=== PATIENT | female | born 1930 | race Caucasian/White ===

== ENCOUNTER 2016-09-30 12:34 | Emergency (ER) | payer OTHER ==
--- NOTE | 2016-09-30 13:35 | PROVIDER DOCUMENTATION ---
HPI-General Adult - General Source: patient - History of Present Illness -Gen Adult Nature of Presenting Problems: 85 y/o F presents to ED cc of pain all over. Pt states about 2 days ago she started having these aching pains. Pt does report some N/V and some chills. Denies fever. Pt is alert. Has some weakness. Location of Pain/Injury: reports: generalized Pain Radiation: reports: no radiation Quality of Pain: reports: aching Onset/Duration: reports: 2 days ago Timing: reports: still present Context/Activities at Onset: reports: light activity Modifying Factors: improves with: nothing Associated Symptoms: reports: nausea, vomiting, weakness. denies: chest pain, fever/chills (reports chills/ no fever), shortness of breath Similar Symptoms Previously?: No Recently seen or treated by another doctor?: No <Sherron Castillo - Last Filed: 09/30/16 17:34> <Ranjan Weaver - Last Filed: 09/30/16 17:41> - General Chief Complaint: Weakness Stated Complaint: SOB, N/V Time Seen by Provider: 09/30/16 13:18 Allergies/Adverse Reactions: Patient Allergies Allergy/AdvReac Type Severity Reaction Status Date / Time rosuvastatin calcium * AdvReac SWELLING Verified 06/11/13 13:28 [From [place]] Home Medications: Home Medication List Medication Instructions Recorded Confirmed Last Taken Type Insulin Glargine [Lantus] 35 unit SUBQ QHS 05/22/13 09/30/16 09/30/16 History Levothyroxine [Synthroid] 50 microgm PO DAILY 05/22/13 09/30/16 09/30/16 History Potassium Chloride 20 meq PO BID 05/22/13 09/30/16 09/30/16 History Warfarin Sodium [Coumadin] 6 mg PO DIRECTED 05/22/13 09/30/16 09/30/16 History ATORVAstatin [Lipitor] 40 mg PO QHS 06/11/13 09/30/16 09/30/16 History Furosemide [Lasix] 40 mg PO DAILY 06/11/13 09/30/16 09/30/16 History Hydrocodone Bit/Acetaminophen 1 each PO PRN PRN 11/10/13 09/30/16 09/30/16 History [Hydrocodon-Acetaminoph 7.5-500] Carvedilol [Coreg] 6.25 mg PO DAILY #0 11/15/13 09/30/16 09/30/16 Rx Diltiazem HCl [Cartia Xt] 1 cap PO DAILY 09/30/16 09/30/16 09/30/16 History Furosemide [Lasix] 40 mg PO DAILY #30 tablet 09/30/16 Unknown Rx Methocarbamol [Robaxin] 500 - 1,000 mg PO BID PRN #100 09/30/16 Unknown Rx tablet Nitrofurantoin Monohyd/M-Cryst 100 mg PO BID #10 capsule 09/30/16 Unknown Rx [Macrobid 100 mg Capsule] Pioglitazone [Actos] 1 tab PO DAILY 09/30/16 09/30/16 09/30/16 History Review of Systems - Adult - REVIEW OF SYSTEMS - ADULT Constitutional: reports: chills. denies: fever Ears, Nose, Mouth & Throat: denies: ear pain, throat pain Cardiovascular: denies: chest pain, palpitations Respiratory: denies: cough, shortness of breath Gastrointestinal: reports: nausea, vomiting. denies: abdominal pain, diarrhea Genitourinary: denies: discharge, frequency Musculoskeletal: denies: bone pain, back pain Neurological: reports: other (weakness). denies: dizziness/vertigo, headache/ migraines, slurred speech <Sherron Castillo - Last Filed: 09/30/16 17:34> Past History - Adult - PAST MEDICAL HISTORY-ADULT Review of Records: reports: Old Records Reviewed, Nursing Assessment Review Cardiovascular: reports: A-Fib, HTN, hyperlipidemia Psychiatric: reports: depression Endocrine/Immune: reports: Diabetes, thyroid disorder - PRIOR SURGERIES/PROCEDURES Surgical/Procedure History: reports: cholecystectomy, hysterectomy, other ( catarct surgrey ) - IMMUNIZATION STATUS Childhood Immunizations: See Nurse Assessment Flu Vaccine: See Nurse Assessment - SOCIAL HISTORY Smoking: quit greater than 1 year Substance Use: denies <Sherron Castillo - Last Filed: 09/30/16 17:34> Physical Exam-General - PHYSICAL EXAM-ADULT Initial Vital Signs Reviewed: Yes - CONSTITUTIONAL General Appearance: appears well, alert, no apparent distress - EYES Eyes: pink conjunctivae - HEAD, EARS, NOSE, MOUTH & THROAT HENMT: moist mucous membranes - NECK Neck: full range of motion, normal inspection, other (tenderness with movement "hurts when i do move it and hurts when i dont move it") - RESPIRATORY Respiratory: chest non-tender, lungs clear, normal breath sounds - CARDIOVASCULAR Cardiovascular: normal peripheral pulses, regular rate, rhythm, no edema - GASTROINTESTINAL (ABDOMEN) Abdominal Exam: normal bowel sounds, non tender, soft - MUSCULOSKELETAL Back Exam: normal inspection, no CVA tenderness, no vertebral tenderness Extremity: normal range of motion, non-tender, normal gait - SKIN Integumentary: normal color, normal turgor, warm/dry - NEUROLOGIC Neurologic: grossly normal, no motor/sensory deficits - PSYCHIATRIC Psych/Mental Status: oriented x 3 <Sherron Castillo - Last Filed: 09/30/16 17:34> Progress - PLAN OF CARE/RESULTS Progress/Plan/Lab Results: plan:LABS, XRAY, MONITOR PT. PT WILL BE GIVEN LASIX Laboratory Tests 09/30/16 09/30/16 09/30/16 13:30 13:30 13:30 WBC 9.82 RBC 3.97 L Hgb 11.4 L Hct 36.7 L MCV 92.4 MCH 28.7 MCHC 31.1 L RDW Std Deviation 16.4 H Plt Count 129 L MPV 12.6 H Immature Gran % (Auto) 0.2 Neut % (Auto) 89.6 H Lymph % (Auto) 5.7 L [place] % (Auto) 3.7 Eos % (Auto) 0.7 Baso % (Auto) 0.1 Immature Gran # (Auto) 0.02 Neut # (Auto) 8.80 H Lymph # (Auto) 0.56 L [place] # (Auto) 0.36 Eos # (Auto) 0.07 Baso # (Auto) 0.01 Segmented Neutrophils Not Reportable ESR 15 PT INR Sodium Potassium Chloride Carbon Dioxide Anion Gap BUN Creatinine Estimated GFR/1.73 m2 BUN/Creatinine Ratio Glucose Calculated Osmolality Calcium Total Bilirubin AST ALT Alkaline Phosphatase Creatine Kinase Bdn-N-Jlzlxembfmu Pept Total Protein Albumin Globulin Albumin/Globulin Ratio TSH 1.92 Thyroxine (T4) Urine Source Urine Color Urine Turbidity Urine pH Ur Specific [place] Urine Protein Ur Glucose (Stick) Ur Ketones (Stick) Urine Blood Urine Nitrite Urine Bilirubin Urobilinogen Dipstick Urine Leukocytes Urine WBC (Auto) Urine RBC (Auto) U Epithel Cells (Auto) Urine Bacteria (Auto) 03/09/30/16 09/30/16 13:30 13:30 13:30 WBC RBC Hgb Hct MCV MCH MCHC RDW Std Deviation Plt Count MPV Immature Gran % (Auto) Neut % (Auto) Lymph % (Auto) [place] % (Auto) Eos % (Auto) Baso % (Auto) Immature Gran # (Auto) Neut # (Auto) Lymph # (Auto) [place] # (Auto) Eos # (Auto) Baso # (Auto) Segmented Neutrophils ESR PT INR Sodium 136 Potassium 4.4 Chloride 97 L Carbon Dioxide 26 Anion Gap 13 BUN 34 H Creatinine 1.3 H Estimated GFR/1.73 m2 39 BUN/Creatinine Ratio 26 Glucose 164 H Calculated Osmolality 283 Calcium 8.6 L Total Bilirubin 1.38 H AST 29 ALT 29 Alkaline Phosphatase 53 Creatine Kinase 45 Wbt-K-Vlbhqphwfrb Pept 4694 H Total Protein 5.7 L Albumin 3.5 Globulin 2.2 Albumin/Globulin Ratio 1.6 TSH Thyroxine (T4) 6.66 Urine Source Urine Color Urine Turbidity Urine pH Ur Specific [place] Urine Protein Ur Glucose (Stick) Ur Ketones (Stick) Urine Blood Urine Nitrite Urine Bilirubin Urobilinogen Dipstick Urine Leukocytes Urine WBC (Auto) Urine RBC (Auto) U Epithel Cells (Auto) Urine Bacteria (Auto) 09/30/16 09/30/16 13:30 13:55 WBC RBC Hgb Hct MCV MCH MCHC RDW Std Deviation Plt Count MPV Immature Gran % (Auto) Neut % (Auto) Lymph % (Auto) [place] % (Auto) Eos % (Auto) Baso % (Auto) Immature Gran # (Auto) Neut # (Auto) Lymph # (Auto) [place] # (Auto) Eos # (Auto) Baso # (Auto) Segmented Neutrophils ESR PT 23.4 H INR 2.33 Sodium Potassium Chloride Carbon Dioxide Anion Gap BUN Creatinine Estimated GFR/1.73 m2 BUN/Creatinine Ratio Glucose Calculated Osmolality Calcium Total Bilirubin AST ALT Alkaline Phosphatase Creatine Kinase Jlf-D-Ldswzmecljf Pept Total Protein Albumin Globulin Albumin/Globulin Ratio TSH Thyroxine (T4) Urine Source CLEAN CATCH Urine Color YELLOW Urine Turbidity HAZY Urine pH 5.5 Ur Specific [place] 1.019 Urine Protein TRACE A Ur Glucose (Stick) NEGATIVE Ur Ketones (Stick) NEGATIVE Urine Blood NEGATIVE Urine Nitrite NEGATIVE Urine Bilirubin NEGATIVE Urobilinogen Dipstick 2 A Urine Leukocytes MODERATE A Urine WBC (Auto) 10-20 A Urine RBC (Auto) <10 U Epithel Cells (Auto) <10 Urine Bacteria (Auto) 3+ Orders Category Date Time Status [place] Cath Insertion ORDERED Care 09/30/16 15:18 Active Misc. NRSG Communication Order DIRECTED Care 09/30/16 15:25 Active Diabetic Diet Diet 09/30/16 14:48 Active BNP [PRO B-NATRIURETIC PEPTIDE] Stat Lab 09/30/16 13:30 Completed CBC WITH ELECTRONIC DIFF [HEME] Stat Lab 09/30/16 13:30 Completed CK PROFILE [SP CHEM] Stat Lab 09/30/16 13:30 Completed CMP [COMPREHENSIVE METABOLIC PANEL] [CHEM] Stat Lab 09/30/16 13:30 Completed INFLUENZA SCREEN A/B Stat Lab 09/30/16 13:15 Completed PROTIME WITH INR [COAG] Stat Lab 09/30/16 13:30 Completed SED RATE [HEME] Stat Lab 09/30/16 13:30 Completed T4 Stat Lab 09/30/16 13:30 Completed TSH Stat Lab 09/30/16 13:30 Completed UA NIMS W/REFLEX CULT [URINALYSIS] Stat Lab 09/30/16 13:55 Completed URINE CULTURE [RM] Routine Lab 09/30/16 14:38 Received Furosemide [Lasix] Med 09/30/16 15:17 Discontinued 60 mg IV NOW ONE Vital Signs - 24 hr 09/30/16 09/30/16 09/30/16 12:54 13:50 17:12 Temperature 98.6 F Pulse Rate 62 65 82 Respiratory 18 27 H 28 H Rate Blood Pressure 112/55 115/55 122/63 O2 Sat by Pulse 92 L 90 L 92 L Oximetry - REASSESSMENT Reassessment #1 Time Reassessed: 15:23 Status: unchanged (Dr. Weaver spoke with pt again and pt also complaining of her ankles swelling (no pedal edema noticed on exam). When asked if taking Lasix pill pt states she does not take it everyday and does not know the last time it was taken.) Reassessment #2 Time Reassessed: 15:55 Status: worsening (PT REPORTS PAIN IN HER NECK IS WORSE AND IS WANTING PAIN MEDICATION) Reassessment #3 Time Reassessed: 16:35 Status: unchanged (pt states she is still having pain all over and it is no getting any better. pt is sitting in bed eating dinner .) <Sherron Castillo - Last Filed: 09/30/16 17:34> Departure <Sherron Castillo - Last Filed: 09/30/16 17:34> - Departure Time of Disposition Order: 17:35 Certified Medical Emergency: Emergent <Ranjan Weaver - Last Filed: 09/30/16 17:41> - Departure DIAGNOSIS: Myalgia CHF (congestive heart failure) Qualifiers: Congestive heart failure type: combined Congestive heart failure chronicity: chronic Qualified Code(s): I50.42 - Chronic combined systolic (congestive) and diastolic (congestive) heart failure UTI (urinary tract infection) Qualifiers: Hematuria presence: without hematuria Disposition: HOME 01 Condition: Stable Additional Instructions: fu with your family doctor in 1-2 weeks ED Follow Up Instructions: You have been treated by a care provider in the Emergency Department. These instructions are being provided to you so you can have an understanding of how to care for yourself upon discharge. Upon discharge from the Emergency Department, you are responsible for making arrangements for follow-up care by a physician of your choice. Take all prescribed medications as directed. Return to the Emergency Department immediately for any new or worsening symptoms. You may call the Physician Referral phone number at [phone] to obtain a list of Physicians who are taking new patients. Prescriptions: Furosemide [Lasix] 40 mg PO DAILY #30 tablet Nitrofurantoin Monohyd/M-Cryst [Macrobid 100 mg Capsule] 100 mg PO BID #10 capsule Methocarbamol [Robaxin] 500 - 1,000 mg PO BID PRN #100 tablet PRN Reason: Pain Referrals: None,PCP [Primary Care Provider] - Attestation - Scribe Verification/Attestation Scribe:: Sherron Castillo Acting as Scribe for:: Ranjan Weaver Scribe documention review:: This chart was documented by a scribe and accurately reflects the service the provider performed and the decisions made by the provider. <Sherron Castillo - Last Filed: 09/30/16 17:34> Physician Attestation
[2016-09-30 14:00] LABS: BASO% 0.1 % (0.0-0.8); EOS# 0.07 X1000 (0.0-0.7); EOS% 0.7 % (0.0-10.0); HEMATOCRIT 36.7 % (37.0-47.0); HEMOGLOBIN 11.4 g/dL (12.0-16.0); IMM GRAN# 0.02 X1000 (0.0-0.04); IMM GRAN% 0.2 % (0.0-0.5); LYMPH# 0.56 X1000 (1.2-3.4); LYMPH% 5.7 % (20.5-51.1); MCH 28.7 PG (27-31); MCHC 31.1 g/dL (33-37); MCV 92.4 FL (81-99); MONO# 0.36 X1000 (0.11-0.59); MONO% 3.7 % (1.7-9.3); MPV 12.6 FL (7.4-10.4); NEUT% 89.6 % (42.2-75.2); PLT 129 X1000 (130-400); RBC 3.97 XMIL (4.2-5.4)
[2016-09-30 14:09] LABS: URINE MICRO REVIEW NEEDED? NO; URINE SOURCE CLEAN CATCH
[2016-09-30 14:12] LABS: BILIRUBIN URINE NEGATIVE (NEGATIVE); BLOOD URINE NEGATIVE (NEGATIVE); COLOR YELLOW; GLUCOSE URINE NEGATIVE (NEGATIVE); LEUKOCYTES URINE MODERATE (NEGATIVE); NITRITE URINE NEGATIVE (NEGATIVE); PH URINE 5.5; PROTEIN URINE TRACE mg/dL (NEGATIVE); SP GRAVITY URINE 1.019; TURBIDITY URINE HAZY (CLEAR); UROBILINOGEN URINE 2 mg/dL (NORMAL)
[2016-09-30 14:14] LABS: UR EPITHELIAL CELLS <10 /HPF (<10); URINE BACTERIA 3+ /HPF; URINE CULTURE NEEDED? YES; URINE RBC <10 /HPF (<10)
[2016-09-30 14:23] LABS: ALBUMIN 3.5 g/dL (3.5-5.0); CALCIUM 8.6 mg/dL (8.8-10.2); POTASSIUM 4.4 mmol/L (3.5-5.1); TOTAL BILIRUBIN 1.38 mg/dL (0.20-1.00); TOTAL PROTEIN 5.7 g/dL (6.3-8.3)
[2016-09-30 14:25] LABS: MANUAL DIFF NEEDED? NO
[2016-09-30 14:29] LABS: INR 2.33; PROTIME 23.4 Seconds (9.2-11.7)
[2016-09-30] MEDS ORDERED: LASIX IV ONE (15:17)
[2016-09-30] MEDS ORDERED: ROBAXIN PO ONE (18:00)
[2016-09-30 18:32] VITALS: BP 138/80
== END 2016-09-30 18:43 | disposition home or self-care (01) ==
LOC: EDBD → ED 12:34
DX: I50.42 Chronic combined systolic (congestive) and diastolic (congestive) heart failure (principal); N39.0 Urinary tract infection, site not specified; M79.1 Myalgia; R11.2 Nausea with vomiting, unspecified; R68.83 Chills (without fever); R53.1 Weakness; R06.02 Shortness of breath; I48.91 Unspecified atrial fibrillation; Z79.899 Other long term (current) drug therapy; I10 Essential (primary) hypertension; E78.5 Hyperlipidemia, unspecified; E11.9 Type 2 diabetes mellitus without complications; E07.9 Disorder of thyroid, unspecified; Z79.01 Long term (current) use of anticoagulants; Z79.4 Long term (current) use of insulin; Z87.891 Personal history of nicotine dependence
CPT/HCPCS: 80053; 81001; 82550; 82948; 83880; 84436; 84443; 85025; 85610; 85651; 87077; 87088; 87804; J1940

== ENCOUNTER 2016-11-17 10:51 | Inpatient (IN) ==
[2016-11-17] MEDS ORDERED: LASIX IV ONE (11:58)
[2016-11-17 12:57] LABS: MANUAL DIFF NEEDED? NO
[2016-11-17 13:04] LABS: BASO% 0.2 % (0.0-0.8); EOS# 0.19 X1000 (0.0-0.7); EOS% 3.2 % (0.0-10.0); HEMATOCRIT 40.2 % (37.0-47.0); LYMPH# 1.18 X1000 (1.2-3.4); MCH 29.3 PG (27-31); MCHC 32.3 g/dL (33-37); MCV 90.7 FL (81-99); MONO# 0.43 X1000 (0.11-0.59); MONO% 7.3 % (1.7-9.3); MPV 11.9 FL (7.4-10.4); NEUT% 69.3 % (42.2-75.2); PLT 173 X1000 (130-400); RBC 4.43 XMIL (4.2-5.4)
[2016-11-17 13:13] LABS: INR 1.73; PROTIME 18.8 Seconds (9.2-11.7)
--- NOTE | 2016-11-17 13:26 | PROVIDER DOCUMENTATION ---
This chart was entered by Jocelyn Neves Scribe, acting as scribe for Ranjan Weaver MD. HPI-Respiratory General - General Chief Complaint: Shortness of Breath Stated Complaint: DIFFICULTY BREATHING Time Seen by Provider: 11/17/16 11:46 Source: patient Allergies/Adverse Reactions: Patient Allergies Allergy/AdvReac Type Severity Reaction Status Date / Time rosuvastatin calcium * AdvReac SWELLING Verified 11/17/16 12:02 [From Crestor] Home Medications: Home Medication List Medication Instructions Recorded Confirmed Last Taken Type Insulin Glargine [Lantus] 35 unit SUBQ QHS 05/22/13 10/02/16 11/16/16 History Levothyroxine [Synthroid] 50 microgm PO DAILY 05/22/13 10/02/16 11/17/16 09:00 History Potassium Chloride 20 meq PO BID 05/22/13 10/02/16 11/17/16 09:00 History Warfarin Sodium [Coumadin] 6 mg PO DIRECTED 05/22/13 10/02/16 11/17/16 09:00 History ATORVAstatin [Lipitor] 40 mg PO QHS 06/11/13 10/02/16 10/01/16 History Furosemide [Lasix] 80 mg PO DAILY 06/11/13 10/02/16 11/17/16 09:00 History Hydrocodone Bit/Acetaminophen 1 each PO PRN PRN 11/10/13 10/02/16 09/30/16 History [Hydrocodon-Acetaminoph 7.5-500] Pioglitazone [Actos] 1 tab PO DAILY 09/30/16 10/02/16 11/17/16 09:00 History Carvedilol 25 mg PO 11/17/16 11/17/16 09:00 History Diltiazem HCl [Cartia Xt] 240 mg PO 11/17/16 11/17/16 09:00 History Methocarbamol 500 mg PO BID PRN 11/17/16 11/17/16 Unknown History - History of Present Illness-Resp Nature of Presenting Problem: Pt is 86 y/o F presents to the ED with SOB. Pt states SOB has worsened the past 3 days. Pt denies F. Quality of Pain: reports: tightness Severity in ED: reports: mild Onset/Duration: reports: 3 days ago Timing: reports: still present Exposure: reports: unknown cause Cough Quality/Degree: reports: no cough Current Respiratory Medication Therapy: Initiated see nurses note Modifying Factors: improves with: nothing Associated Symptoms: reports: shortness of breath Similar Symptoms Previously?: Yes Recently seen or treated by another doctor?: No Review of Systems - Adult - REVIEW OF SYSTEMS - ADULT Constitutional: reports: no symptoms reported Eyes: reports: no symptoms reported Ears, Nose, Mouth & Throat: reports: no symptoms reported Cardiovascular: reports: no symptoms reported Respiratory: reports: shortness of breath. denies: cough, wheezing Gastrointestinal: reports: no symptoms reported Genitourinary: reports: no symptoms reported Musculoskeletal: reports: no symptoms reported Integumentary: reports: no symptoms reported Neurological: reports: no symptoms reported Psychiatric: reports: no symptoms reported Endocrine: reports: no symptoms reported Hematologic/Lymphatic: reports: no symptoms reported Allergic/Immunologic: reports: no symptoms reported All Other Systems: Reviewed and Negative Past History - Adult - PAST MEDICAL HISTORY-ADULT Review of Records: reports: Nursing Assessment Review, Medications Reviewed, Social history reviewed & non-contributory. Major Childhood Illnesses: reports: denies history Cardiovascular: reports: A-Fib, CHF, HTN, hyperlipidemia Respiratory: reports: COPD Gastrointestinal: reports: denies history Obstetrical/Gynecological: reports: denies history Genitourinary: reports: denies history Musculoskeletal: reports: denies history Neurological: reports: dementia Psychiatric: reports: depression Endocrine/Immune: reports: Diabetes, thyroid disorder Other Conditions: reports: denies history - PRIOR SURGERIES/PROCEDURES Surgical/Procedure History: reports: cholecystectomy, hysterectomy, other ( catarct surgrey ) - IMMUNIZATION STATUS Childhood Immunizations: See Nurse Assessment Flu Vaccine: See Nurse Assessment - FAMILY HISTORY Family History: reviewed, not pertinent - SOCIAL HISTORY Smoking: denies Substance Use: denies Living Situation: family Physical Exam-General - PHYSICAL EXAM-ADULT Initial Vital Signs Reviewed: Yes - CONSTITUTIONAL General Appearance: appears well, alert, no apparent distress - EYES Eyes: PERRL/EOMI, pink conjunctivae - HEAD, EARS, NOSE, MOUTH & THROAT HENMT: normocephalic/atraumatic, moist mucous membranes, normal ENT inspection - NECK Neck: supple, normal inspection - RESPIRATORY Respiratory: chest non-tender, lungs clear, normal breath sounds - CARDIOVASCULAR Cardiovascular: normal peripheral pulses, regular rate, rhythm, no edema, no gallop, no JVD, no murmur - GASTROINTESTINAL (ABDOMEN) Abdominal Exam: normal bowel sounds, non tender, soft, no organomegaly - LYMPHATIC Lymphatic: no adenopathy - MUSCULOSKELETAL Back Exam: normal inspection, no CVA tenderness, no vertebral tenderness Extremity: normal range of motion, non-tender, swelling (bilateral legs) - SKIN Integumentary: normal color, normal turgor - NEUROLOGIC Neurologic: grossly normal - PSYCHIATRIC Psych/Mental Status: normal mood/affect, oriented x 3 Progress - PLAN OF CARE/RESULTS Progress/Plan/Lab Results: Vital Signs - 8 hr 11/17/16 11:25 11/17/16 11:46 11/17/16 12:58 Temperature 97.9 F Pulse Rate 66 70 70 Respiratory Rate 25 H 25 H 24 Blood Pressure 171/84 171/84 171/84 O2 Sat by Pulse Oximetry 91 L 89 L 89 L 11/17/16 14:16 Temperature Pulse Rate 72 Respiratory Rate 27 H Blood Pressure 171/84 O2 Sat by Pulse Oximetry 91 L Laboratory Results - last 24 hr 11/17/16 11/17/16 11/17/16 12:37 12:37 12:37 WBC 5.89 RBC 4.43 Hgb 13.0 Hct 40.2 MCV 90.7 MCH 29.3 MCHC 32.3 L RDW Std Deviation 15.8 H Plt Count 173 MPV 11.9 H Immature Gran % (Auto) 0.0 Neut % (Auto) 69.3 Lymph % (Auto) 20.[address] [place] % (Auto) 7.3 Eos % (Auto) 3.2 Baso % (Auto) 0.2 Immature Gran # (Auto) 0.00 Neut # (Auto) 4.08 Lymph # (Auto) 1.[address] [place] # (Auto) 0.43 Eos # (Auto) 0.19 Baso # (Auto) 0.01 PT INR D-Dimer 0.27 Sodium 139 Potassium 3.0 L Chloride 96 L Carbon Dioxide 28 Anion Gap 15 BUN 25 H Creatinine 1.1 H Estimated GFR/1.73 m2 47 BUN/Creatinine Ratio 23 Glucose 148 H Calculated Osmolality 285 Calcium 9.2 Magnesium 2.0 Total Bilirubin 1.19 H AST 17 ALT 16 Alkaline Phosphatase 85 Creatine Kinase 64 Troponin T Cfa-F-Hipbzykpxwx Pept Total Protein 7.2 Albumin 4.4 Globulin 2.8 Albumin/Globulin Ratio 1.6 0511/17/16 11/17/16 12:37 12:37 12:37 WBC RBC Hgb Hct MCV MCH MCHC RDW Std Deviation Plt Count MPV Immature Gran % (Auto) Neut % (Auto) Lymph % (Auto) [place] % (Auto) Eos % (Auto) Baso % (Auto) Immature Gran # (Auto) Neut # (Auto) Lymph # (Auto) [place] # (Auto) Eos # (Auto) Baso # (Auto) PT 18.8 H INR 1.73 D-Dimer Sodium Potassium Chloride Carbon Dioxide Anion Gap BUN Creatinine Estimated GFR/1.73 m2 BUN/Creatinine Ratio Glucose Calculated Osmolality Calcium Magnesium Total Bilirubin AST ALT Alkaline Phosphatase Creatine Kinase Troponin T < 0.010 Zpi-G-Emfezppyyco Pept 2394 H Total Protein Albumin Globulin Albumin/Globulin Ratio Orders Category Date Time Status Cardiac Monitoring DIRECTED Care 11/17/16 11:48 Active Oxygen Therapy- ED Nursing DIRECTED Care 11/17/16 11:48 Active Saline Loc NOW Care 11/17/16 11:48 Active CHEST-2 VIEWS [RAD] Stat Exams 11/17/16 11:48 Completed CBC WITH ELECTRONIC DIFF [HEME] Stat Lab 11/17/16 12:37 Completed CK PROFILE [SP CHEM] Stat Lab 11/17/16 12:37 Completed COMPREHENSIVE METABOLIC PANEL [CHEM] Stat Lab 11/17/16 12:37 Completed D-DIMER [CHEM] Stat Lab 11/17/16 12:37 Completed MAGNESIUM [CHEM] Stat Lab 11/17/16 12:37 Completed PRO B-NATRIURETIC PEPTIDE Stat Lab 11/17/16 12:37 Completed PROTIME WITH INR [COAG] Stat Lab 11/17/16 12:37 Completed TROPONIN T Stat Lab 11/17/16 12:37 Completed Furosemide [Lasix] Med 11/17/16 11:58 Discontinued 80 mg IV NOW ONE Potassium Chloride 20% Liquid Med 11/17/16 14:18 Discontinued 60 meq PO NOW ONE EKG [EKG] Stat Ther 11/17/16 11:48 Ordered Result Diagrams: 11/17/16 12:37 11/17/16 12:37 - REASSESSMENT Reassessment #1 Time Reassessed: 14:25 Status: unchanged (pt given 80 mg of lasix iv and is still hypoxic and is not on home 02) - EKG 1 Time of EKG reading by physician:: 11:13 EKG Read and Signed by:: Ranjan Weaver EKG Interpretation (*Must complete 3 of following elements*): Abnormal (ST & T wave abnormality, consider anterolateral ischemia; prolonged QT) Rate: 64 Rhythm: normal sinus rhythm Comments: septal infact, age undetermined; Departure - Departure Time of Disposition Decision: 14:26 DIAGNOSIS: CHF (congestive heart failure), NYHA class IV Qualifiers: Congestive heart failure type: diastolic Congestive heart failure chronicity: chronic Qualified Code(s): I50.32 - Chronic diastolic (congestive) heart failure Disposition: ADMITTED INPATIENT 09 Certified Medical Emergency: Emergent Condition: Fair - Critical Care Note This patient required my direct & personal management of CC.: No This chart was documented by the indicated scribe, (Jocelyn Neves Scribe) and accurately reflects the services I performed and decisions made by me, Ranjan Weaver MD, as attested by the provider's signature.
--- NOTE | 2016-11-17 13:27 | Diag Imaging Result Document ---
PROCEDURE NAME: CHEST-2 VIEWS - 11/17/2016 FRONTAL AND LATERAL CHEST, TWO VIEWS: COMPARISON: Compared to 10/02/2016. FINDINGS: There are small bilateral pleural effusions and there is basilar atelectasis and infiltrates. The heart is mildly prominent. The upper lungs are clear. IMPRESSION: Mild cardiomegaly with mild pulmonary edema and small effusions in addition to basilar atelectasis and/or infiltrate.
[2016-11-17 13:44] LABS: ALBUMIN 4.4 g/dL (3.5-5.0); CALCIUM 9.2 mg/dL (8.8-10.2); TOTAL BILIRUBIN 1.19 mg/dL (0.20-1.00); TOTAL PROTEIN 7.2 g/dL (6.3-8.3)
[2016-11-17] MEDS ORDERED: POTASSIUM CHLORIDE 20% LIQUID PO ONE (14:18)
--- NOTE | 2016-11-17 14:31 | EKG Report ---
Test Performed on : 11/17/2016 11:13:49 AM Test Reason : Chest Pain Blood Pressure : / mmHG Vent. Rate : 064 BPM Atrial Rate : 064 BPM P-R Int : 204 ms QRS Dur : 100 ms QT Int : 502 ms P-R-T Axes : 072 008 -72 degrees QTc Int : 517 ms Normal sinus rhythm. Septal infarct , age undetermined ST \T\ T wave abnormality, consider anterolateral ischemia Prolonged QT Abnormal ECG No previous ECGs available Unconfirmed Result
[2016-11-17 14:47] LABS: ALLEN TEST YES; BE 6.9 mmoll (-3.0-3.0); BLOOD TYPE ARTERIAL; DRAW SITE R RADIAL; METHB 1.6 % (0.0-1.5); O2(CT) 15.8 mL/dL (15.0-23.0); PCO2(98.6) 38 mmHg (35-45); PO2(98.6) 56 mmHg (60-100); SAMPLE BLOOD; SAO2 94.5 % (95.0-100.0); THB 12.4 g/dL (11.5-17.4); pH(98.6) 7.51 (7.35-7.45)
[2016-11-17 14:48] LABS: MODALITY CANNULA
[2016-11-17 15:21] LABS: URINE CULTURE NEEDED? NO; URINE MICRO REVIEW NEEDED? NO; URINE SOURCE CLEAN CATCH
[2016-11-17 15:26] LABS: BILIRUBIN URINE NEGATIVE (NEGATIVE); BLOOD URINE NEGATIVE (NEGATIVE); COLOR STRAW; GLUCOSE URINE NEGATIVE (NEGATIVE); LEUKOCYTES URINE NEGATIVE (NEGATIVE); NITRITE URINE NEGATIVE (NEGATIVE); PROTEIN URINE NEGATIVE (NEGATIVE); SP GRAVITY URINE 1.006; TURBIDITY URINE CLEAR (CLEAR); UROBILINOGEN URINE NORMAL (NORMAL)
[2016-11-17 15:28] LABS: UR EPITHELIAL CELLS <10 /HPF (<10); URINE BACTERIA NEGATIVE /HPF; URINE RBC <10 /HPF (<10); URINE WBC <10 /HPF (<10)
[2016-11-17] MEDS ORDERED: DUONEB (A & A) INH PRN (16:38)
--- NOTE | 2016-11-17 17:09 | HISTORY AND PHYSICAL ---
CHIEF COMPLAINT: Shortness of breath. HISTORY OF PRESENT ILLNESS: Mrs. Sanchez is a very pleasant 86-year-old female with a history of diastolic heart failure, diabetes mellitus, paroxysmal atrial fibrillation, who presents with 3 days of progressive dyspnea and lower extremity edema. She has also been reporting paroxysmal nocturnal dyspnea and orthopnea. This has all been worsening over the past 3 days. She denies any chest pain. She denies fever, chills, cough, or congestion. She has no abdominal pain, diarrhea, or constipation. She came to the ER for evaluation. In the ER a chest x-ray showed mild cardiomegaly with mild pulmonary edema. Her laboratory data is consistent with mild renal insufficiency and congestive heart failure with a proBNP of 2394. She is mildly hypokalemic and she is hypoxic as her ABG on 6 L of nasal cannula has a pO2 of 56. She has been given diuresis and she is going to be admitted for further treatment and evaluation. PAST MEDICAL HISTORY: 1. Diastolic heart failure. Last recorded ejection fraction of 55% on 2016. There is biatrial enlargement and diastolic dysfunction noted. 2. Diabetes mellitus. 3. Paroxysmal atrial fibrillation on chronic anticoagulation. 4. Hypothyroidism. 5. Hyperlipidemia. PAST SURGICAL HISTORY: None. SOCIAL HISTORY: Patient is . She lives alone. She has no history of alcohol, tobacco, or drug use. FAMILY HISTORY: Positive for coronary artery disease. REVIEW OF SYSTEMS: Fourteen-point review of systems obtained and found to be negative, with the exception of the HPI. HOME MEDICATIONS: Lipitor 40 mg at hs, carvedilol 25 mg daily, Cartia XT 240 mg daily, Lasix 80 mg daily, [place] as needed, Lantus insulin 35 units subcu daily, Synthroid 50 mcg daily, methocarbamol 500 mg b.i.d., Actos 30 mg daily, KCl 20 mEq p.o. daily, Coumadin 6 mg as directed. ALLERGIES: To Rosuvastatin. PHYSICAL EXAMINATION: VITAL SIGNS: Blood pressure is 189/94, heart rate is 76, respiratory rate 26, O2 saturation 91% on 6 L nasal cannula. Temperature is 97.9 degrees. GENERAL: This is an elderly female, lying in hospital bed in no acute distress. NEUROLOGIC: The patient is awake, alert, and oriented. She follows commands without focal deficits. HEENT: Head is atraumatic and normocephalic. Pupils are equal, round, reactive to light. Oral mucosa is moist. Trachea is midline. NECK: No jugular venous distention. CHEST: Bibasilar crackles. CARDIOVASCULAR: Regular rate and rhythm. S1-S2 is noted. GASTROINTESTINAL: Soft, nondistended, nontender. Bowel sounds positive. EXTREMITIES: There is 1 to 2+ edema bilaterally. Pulses palpable, but diminished. DIAGNOSTIC DATA: Shows a WBC 5.9, hemoglobin 13, hematocrit 40.2, platelet count 173,000. PT 18.8, INR 1.273. ABG on 6 L nasal cannula, pH 7.51, pCO2 38, O2 66, bicarb 30.1. Sodium 139, potassium 3, chloride 96, CO2 28, anion gap 15. BUN 25, creatinine 1.1. Glucose 148. Calcium 9.2, magnesium 2. Bilirubin 1.19. Transaminases are within normal limits. Troponin negative. ProBNP 2394. Albumin 4.4. Urinalysis is negative for acute process. ASSESSMENT AND PLAN: 1. Acute hypoxic respiratory failure: Secondary to acute heart failure exacerbation. We will continue oxygen and diuretics, as well as breathing treatments. Check a chest x-ray in the morning. No signs or symptoms of pneumonia at this time. 2. Acute on chronic diastolic heart failure: Will discontinue her oral diuretics and add Lasix 40 mg b.i.d. IV. We will follow strict I's and Os and daily weights. Continue the rest of her home medications once they have been compiled. Rule out myocardial infarction with cardiac enzymes. 3. Diabetes mellitus: We will add pattern blood sugars and sliding scale insulin. 4. Hypothyroidism: Will make sure TSH has been done recently. If not, will check one and continue her Synthroid. 5. Atrial fibrillation: Currently in sinus rhythm. Her INR is subtherapeutic. We will verify her dose of Coumadin and continue and make adjustments as necessary. 6. Hypokalemia: This has been treated in the emergency room. We will follow electrolytes daily. 7. Hyperlipidemia: Chronic and stable. Continue statin. 8. Deep venous thrombosis prophylaxis is provided with her Coumadin. Further recommendations to follow. Dictated by YAAKOV Abraham for Ana López MD cc: YAAKOV Abraham MD The patient was seen and examined by me. I agree with the assessment and plan as dictated. The plan of care was discussed with the patient at the bedside. KRISTIAN
[2016-11-17] MEDS: DUONEB (A & A) INH SCH ×2 (19:33→22:52)
[2016-11-17] MEDS ORDERED: NORCO-5 PO PRN (19:45)
[2016-11-17] MEDS ORDERED: ZOFRAN IV PRN (19:45)
[2016-11-17] MEDS ORDERED: HUMALOG SUBQ SCH (21:00)
[2016-11-17] MEDS: LIPITOR PO SCH (21:19)
[2016-11-17] MEDS: APRESOLINE PO SCH (21:19)
[2016-11-17] MEDS: HUMULIN R SUBQ SCH (21:26)
[2016-11-18] MEDS: LANTUS SUBQ SCH ×2 (03:46→20:52)
[2016-11-18] MEDS: DUONEB (A & A) INH SCH ×6 (04:02→23:13)
[2016-11-18] MEDS ORDERED: INSULIN PEN NEEDLES ONE (05:05)
--- NOTE | 2016-11-18 06:12 | EKG Report ---
Test Performed on : 11/18/2016 05:23:12 AM Test Reason : chest pain Blood Pressure : / mmHG Vent. Rate : 093 BPM Atrial Rate : 051 BPM P-R Int : 000 ms QRS Dur : 094 ms QT Int : 502 ms P-R-T Axes : 000 -62 -82 degrees QTc Int : 624 ms Atrial fibrillation. Left axis deviation Incomplete right bundle branch block Septal infarct (cited on or before 17-NOV-2016) ST \T\ T wave abnormality, consider inferior ischemia ST \T\ T wave abnormality, consider anterolateral ischemia Prolonged QT Abnormal ECG When compared with ECG of 18-NOV-2016 05:22, (Unconfirmed) Serial changes of Septal infarct present Confirmed by Javier MUNOZ, Dougie Jones ([id number]) on 11/18/2016 12:10:27 PM
[2016-11-18] MEDS: PRILOSEC PO SCH (06:29)
[2016-11-18] MEDS: HUMULIN R SUBQ SCH ×3 (06:30→16:28)
[2016-11-18 07:11] LABS: HEMATOCRIT 39.8 % (37.0-47.0); HEMOGLOBIN 12.6 g/dL (12.0-16.0); MCH 29.4 PG (27-31); MCHC 31.7 g/dL (33-37); MCV 92.8 FL (81-99); MPV 12.6 FL (7.4-10.4); RBC 4.29 XMIL (4.2-5.4)
[2016-11-18 07:15] LABS: INR 1.63; PROTIME 17.6 Seconds (9.2-11.7)
[2016-11-18 07:28] LABS: CALCIUM 8.9 mg/dL (8.8-10.2); POTASSIUM 3.5 mmol/L (3.5-5.1)
--- NOTE | 2016-11-18 07:36 | Diag Imaging Result Document ---
PROCEDURE NAME: CHEST-PORTABLE - 11/18/2016 SINGLE FRONTAL RADIOGRAPH OF THE CHEST: COMPARISON: 11/17/2016. FINDINGS: There are bilateral increased interstitial markings that are similar to the previous study and worst on the right. There is suggestion of small effusions that are essentially stable given differences in positioning. No new consolidations identified. Cardiac silhouette is stable. IMPRESSION: Stable chest.
[2016-11-18] MEDS: LASIX IV SCH ×2 (08:56→20:53)
[2016-11-18] MEDS: CARDIZEM CD PO SCH (08:57)
[2016-11-18] MEDS: APRESOLINE PO SCH ×3 (08:57→17:47)
[2016-11-18] MEDS: SYNTHROID PO SCH (08:57)
[2016-11-18] MEDS ORDERED: WARFARIN SODIUM 6 MG PO SCH (09:15)
[2016-11-18] MEDS ORDERED: LOVENOX SUBQ ONE (10:45)
[2016-11-18] MEDS: CORDARONE PO SCH ×3 (11:14→17:47)
--- NOTE | 2016-11-18 11:32 | CONSULTATION ---
DATE OF CONSULTATION: 11/18/2016 HISTORY: This 86-year-old white female with past history of chronic diastolic heart failure, paroxysmal atrial fibrillation, diabetes mellitus, and chronic kidney disease was admitted yesterday evening for further management of acute on chronic diastolic heart failure. She relates a 3 to 4-day history of orthopnea. She has had some exertional shortness of breath. She finally came in last night and was found to have evidence of volume overload. She was in sinus rhythm on presentation. There has been no chest pain. She has been diuresed with intravenous Lasix, and is already feeling better. She initially was hypoxemic, but is without dyspnea this morning, not wearing her oxygen. She does admit to some dietary indiscretion with respect to sodium intake. Reluctantly, she also admits to not always taking her diuretic therapy, and would go several days without Lasix off and on. She is not aware of any palpitations. PAST MEDICAL HISTORY: 1. Chronic diastolic heart failure. 2. Cardiomyopathy, probably hypertensive in origin. Last ejection fraction 55% on 10/03/2016. Biatrial enlargement also reported, as well as evidence of diastolic dysfunction. 3. Diabetes mellitus. 4. Paroxysmal atrial fibrillation. Patient currently managed with rate control and chronic anticoagulation. 5. Previous atrial flutter ablation in 2013. 6. Hypothyroidism. 7. Hyperlipidemia. PAST SURGICAL HISTORY: None. ALLERGIES: She is allergic or intolerant of rosuvastatin. MEDICATIONS PRIOR TO ADMISSION: As listed. SOCIAL HISTORY: She is . She lives alone. She does not use alcohol or smoke. She occasionally uses a walker due to some perceived unsteadiness of gait. She still drives a car to the grocery store. FAMILY HISTORY: Negative for premature coronary disease. REVIEW OF SYSTEMS: Pulmonary: Noteworthy for orthopnea and dyspnea, but otherwise negative. Gastrointestinal: Negative. Constitutional: Negative. Remainder of review of systems is negative with 14 total systems reviewed. PHYSICAL EXAMINATION: General: This is an overweight, elderly, white female in no distress, currently on room air. Vital Signs as recorded are stable. HEENT: Extraocular movements appear intact. Mucous membranes are moist. Neck: Supple without discernible jugular distention. There are no carotid bruits. Chest: Auscultation of the chest reveals fine inspiratory crackles in the bases bilaterally. Cardiac: Reveals distant heart sounds. An irregular rate and rhythm is demonstrated. No murmur or gallop could be appreciated. Abdomen: Soft, nontender. Extremities: Demonstrate trace pretibial edema. Neurologic: Reveals her to be alert, fully oriented. Speech is fluent. She moves all 4 extremities equally well. Skin: Warm and dry. Psychiatric: Reveals her mood to be appropriate. DIAGNOSTIC DATA: Initial ECG demonstrates normal sinus rhythm, delayed precordial R-wave progression, and nonspecific ST-T wave abnormality. Repeat ECG today demonstrates atrial fibrillation, left axis deviation, delayed precordial R-wave progression, nonspecific ST-T wave abnormality. IMPRESSION: 1. Acute on chronic diastolic heart failure. 2. Paroxysmal atrial fibrillation. Patient initially in sinus rhythm, and has converted to atrial fibrillation during hospitalization. Heart rate moderately elevated. 3. History of previous ablation for atrial flutter in 2013. 4. Cardiomyopathy, probably hypertensive in origin, with most recent echocardiogram indicating preserved left ventricular ejection fraction. 5. Diabetes mellitus. 6. Chronic kidney disease. Current creatinine 1.0. 7. Hypothyroidism. RECOMMENDATIONS: 1. Given persistent evidence of pulmonary congestion, would diurese further over the next 24 hours. 2. Atrial fibrillation may be contributing to tendency for diastolic heart failure. Will try and suppress atrial fibrillation with amiodarone. Rationale for this approach, along with potential side effects with amiodarone were discussed with the patient. 3. Maintain anticoagulation. Current INR is subtherapeutic. Will give Lovenox subcutaneously, and supplement warfarin. 4. Salt restriction discussed with the patient. cc: Benjamin Alejandro MD
--- NOTE | 2016-11-18 12:32 | PROGRESS NOTE ---
DATE: 11/18/2016 SUBJECTIVE: The patient is resting comfortably in bed. She states that she feels a lot better today. OBJECTIVE: Vital Signs: Temperature 98 degrees, blood pressure 158/82, heart rate 106, respirations 16, O2 saturation is 95% on 5 L nasal cannula. General: This is an elderly female, lying in bed, in no acute distress. Head: Normocephalic, atraumatic. Heart: S1, S2. Irregularly irregular rhythm. Lungs:Equal air entry bilaterally, no wheezing, no rales Abdomen: Positive bowel sounds. Soft, nontender, nondistended. Extremities: There is 2+ edema. Neurologic: The patient is alert and oriented x3. LABS: White blood cell count 5.6, hemoglobin 12, hematocrit 39, platelets 168, 000. INR 1.6. Sodium 142, potassium 3.5, chloride 102, CO2 29, BUN 22, creatinine 1, glucose 177. ASSESSMENT AND PLAN: 1. Pulmonary edema with an acute on chronic diastolic congestive heart failure exacerbation. Continue to diurese with Lasix. We will also consult the workers' compensation claims examiner. 2. Paroxysmal atrial fibrillation. The patient appears to be in atrial fibrillation now. Will defer to the workers' compensation claims examiner regarding rate control. Coumadin has been restarted. 3. Diabetes mellitus type 2. Continue on sliding scale insulin. 4. Hypothyroidism. Continue on Synthroid. 5. Hypertension. Continue on the current antihypertensive therapy. Will consult physical therapy. cc: Ana López MD MTDD
[2016-11-18] MEDS ORDERED: COUMADIN PO ONE (17:00)
[2016-11-18] MEDS: LIPITOR PO SCH (20:51)
[2016-11-18] MEDS: COUMADIN PO SCH (20:51)
[2016-11-19] MEDS: HUMULIN R SUBQ SCH ×5 (01:35→20:53)
[2016-11-19] MEDS: DUONEB (A & A) INH SCH ×6 (03:55→23:00)
[2016-11-19] MEDS: PRILOSEC PO SCH (06:06)
[2016-11-19] MEDS: SYNTHROID PO SCH (06:06)
[2016-11-19 06:56] LABS: INR 1.37; PROTIME 14.7 Seconds (9.2-11.7)
--- NOTE | 2016-11-19 06:56 | EKG Report ---
Test Performed on : 11/19/2016 06:12:00 AM Test Reason : afib Blood Pressure : / mmHG Vent. Rate : 062 BPM Atrial Rate : 073 BPM P-R Int : 000 ms QRS Dur : 094 ms QT Int : 494 ms P-R-T Axes : 000 -47 -67 degrees QTc Int : 501 ms Atrial fibrillation. Left axis deviation Septal infarct (cited on or before 17-NOV-2016) ST \T\ T wave abnormality, consider anterolateral ischemia Abnormal ECG When compared with ECG of 18-NOV-2016 05:23, Vent. rate has decreased BY 31 BPM QT has shortened Confirmed by Javier MUNOZ, Dougie Jones ([id number]) on 11/19/2016 9:04:03 AM
[2016-11-19 06:57] LABS: HEMATOCRIT 39.5 % (37.0-47.0); HEMOGLOBIN 12.9 g/dL (12.0-16.0); MCH 29.5 PG (27-31); MCHC 32.7 g/dL (33-37); MCV 90.4 FL (81-99); MPV 12.1 FL (7.4-10.4); RBC 4.37 XMIL (4.2-5.4)
[2016-11-19 07:17] LABS: CALCIUM 8.8 mg/dL (8.8-10.2); POTASSIUM 3.8 mmol/L (3.5-5.1)
[2016-11-19] MEDS: LASIX IV SCH ×2 (10:31→20:52)
[2016-11-19] MEDS: MIRALAX PO SCH ×2 (10:31→20:54)
[2016-11-19] MEDS: CARDIZEM CD PO SCH (10:32)
[2016-11-19] MEDS: CORDARONE PO SCH ×3 (10:32→18:44)
[2016-11-19] MEDS: COLACE PO SCH ×2 (10:32→20:53)
[2016-11-19] MEDS: APRESOLINE PO SCH ×3 (10:32→18:44)
[2016-11-19] MEDS ORDERED: LACTULOSE PO ONE (11:36)
--- NOTE | 2016-11-19 15:31 | PROGRESS NOTE ---
DATE: 11/19/2016 SUBJECTIVE: The patient states that she feels a lot better today. She is starting to cough a little bit more. OBJECTIVE: Vital Signs: Temperature 97.9 degrees, blood pressure 141/59, heart rate 82, respirations 21, O2 saturations 92% on room air. General: This is an elderly female lying in bed in no acute distress. Head: Normocephalic atraumatic. Heart: S1, S2. Normal. Regular rate and rhythm. Lungs: Clear to auscultation bilaterally. Abdomen: Positive bowel sounds. Soft, nontender, nondistended. Extremities: +1 edema. No cyanosis. No calf tenderness. Neurologic: The patient is alert and oriented x3. LABS: Reviewed. ASSESSMENT AND PLAN: 1. Acute on chronic diastolic congestive heart failure exacerbation. Improved. The peripheral edema has improved quite a bit. The patient is also feeling a lot better today. Continue IV Lasix. 2. Paroxysmal atrial fibrillation. Continue on Coumadin and Cardizem as ordered. Will monitor the INR daily. 3. Constipation. Will start the patient on scheduled laxative therapy. 4. Diabetes mellitus type 2. Will continue on Lantus plus sliding scale insulin. 5. Hypothyroidism. Continue on Synthroid. 6. Continue with physical therapy. cc: Ana López MD MTDD
[2016-11-19] MEDS: DULCOLAX PR SCH (20:53)
[2016-11-19] MEDS: LANTUS SUBQ SCH (20:53)
[2016-11-19] MEDS: LIPITOR PO SCH (20:53)
[2016-11-19] MEDS ORDERED: COUMADIN PO SCH (21:00)
[2016-11-20] MEDS: TYLENOL PM PO PRN ×2 (02:14→22:00)
[2016-11-20] MEDS: DUONEB (A & A) INH SCH ×6 (04:12→23:23)
[2016-11-20] MEDS: PRILOSEC PO SCH (06:28)
[2016-11-20] MEDS: SYNTHROID PO SCH (06:28)
[2016-11-20 07:07] LABS: HEMATOCRIT 38.2 % (37.0-47.0); HEMOGLOBIN 12.2 g/dL (12.0-16.0); MCH 29.4 PG (27-31); MCHC 31.9 g/dL (33-37); MPV 12.1 FL (7.4-10.4); RBC 4.15 XMIL (4.2-5.4)
[2016-11-20 07:12] LABS: INR 1.49; PROTIME 16.1 Seconds (9.2-11.7)
[2016-11-20] MEDS: HUMULIN R SUBQ SCH ×4 (07:13→22:03)
[2016-11-20 07:42] LABS: CALCIUM 8.7 mg/dL (8.8-10.2); POTASSIUM 4.1 mmol/L (3.5-5.1)
[2016-11-20] MEDS: LASIX IV SCH (08:14)
[2016-11-20] MEDS: APRESOLINE PO SCH ×3 (08:15→22:06)
[2016-11-20] MEDS: COLACE PO SCH ×2 (08:16→22:01)
[2016-11-20] MEDS: MIRALAX PO SCH ×2 (08:16→22:01)
[2016-11-20] MEDS: CARDIZEM CD PO SCH (08:16)
[2016-11-20] MEDS: CORDARONE PO SCH ×3 (08:16→22:06)
--- NOTE | 2016-11-20 12:34 | Diag Imaging Result Document ---
PROCEDURE NAME: CHEST-PORTABLE - 11/20/2016 SINGLE FRONTAL RADIOGRAPH OF THE CHEST: COMPARISON: 11/18/2016. FINDINGS: Increased interstitial markings may have marginally improved during the interval. No new consolidations are identified. Cardiac silhouette is stable. IMPRESSION: Increased interstitial markings bilaterally that appears to have improved somewhat during the interval.
--- NOTE | 2016-11-20 13:43 | PROGRESS NOTE ---
DATE: 11/20/2016 SUBJECTIVE: The patient states that she did not sleep well last night. Otherwise she states that her shortness of breath has improved. OBJECTIVE: Vital Signs: Temperature 97.9 degrees, blood pressure 119/63, heart rate 81 respirations 16, O2 sats 98% on 3 L nasal cannula. General: This is an elderly female, lying in bed, in no acute distress. Head: Normocephalic atraumatic. Heart: S1, S2. Normal. Regular rate and rhythm. Lungs: Clear to auscultation bilaterally. Abdomen: Positive bowel sounds. Soft, nontender, nondistended. Extremities: +1 edema. No cyanosis. No calf tenderness. Neurologic: The patient is alert and oriented x3. LABS: INR 1.4. White blood cell count 6.6, hemoglobin 12, platelets 159,000. BUN 28, creatinine 1.2. Glucose 154. ASSESSMENT AND PLAN: 1. Acute on chronic diastolic congestive heart failure exacerbation. Improved. We will switch the patient to oral Lasix. 2. Paroxysmal atrial fibrillation. Continue on Cardizem. The patient is on Coumadin therapy. 3. Constipation. Continue on scheduled laxatives. 4. Diabetes mellitus type 2. Continue on Lantus plus sliding scale insulin. 5. Hypothyroidism. Continue on Synthroid. 6. Continue with physical therapy. 7. Disposition. Hopefully the patient will be stable for discharge home on Tuesday. cc: Ana López MD
[2016-11-20] MEDS: TESSALON PO SCH ×2 (16:11→22:06)
[2016-11-20] MEDS ORDERED: INSULIN PEN NEEDLES ONE (16:17)
[2016-11-20] MEDS: LIPITOR PO SCH (22:00)
[2016-11-20] MEDS: COUMADIN PO SCH (22:01)
[2016-11-20] MEDS: LANTUS SUBQ SCH (22:02)
[2016-11-20] MEDS: DULCOLAX PR SCH (22:04)
[2016-11-21] MEDS: DUONEB (A & A) INH SCH ×6 (04:38→23:07)
[2016-11-21] MEDS: HUMULIN R SUBQ SCH ×4 (06:03→21:52)
[2016-11-21] MEDS: SYNTHROID PO SCH (06:04)
[2016-11-21] MEDS: PRILOSEC PO SCH (06:04)
[2016-11-21 07:23] LABS: MANUAL DIFF NEEDED? NO
[2016-11-21 07:38] LABS: BASO% 0.2 % (0.0-0.8); EOS# 0.34 X1000 (0.0-0.7); EOS% 6.9 % (0.0-10.0); HEMATOCRIT 40.8 % (37.0-47.0); LYMPH% 24.2 % (20.5-51.1); MCH 29.1 PG (27-31); MCHC 31.9 g/dL (33-37); MCV 91.5 FL (81-99); MONO# 0.47 X1000 (0.11-0.59); MONO% 9.5 % (1.7-9.3); NEUT% 59.2 % (42.2-75.2); PLT 166 X1000 (130-400); RBC 4.46 XMIL (4.2-5.4)
[2016-11-21 08:05] LABS: INR 1.69; PROTIME 18.3 Seconds (9.2-11.7)
[2016-11-21 08:06] LABS: CALCIUM 8.9 mg/dL (8.8-10.2); POTASSIUM 3.9 mmol/L (3.5-5.1)
[2016-11-21] MEDS: CARDIZEM CD PO SCH (10:21)
[2016-11-21] MEDS: APRESOLINE PO SCH ×3 (10:21→16:38)
[2016-11-21] MEDS: MIRALAX PO SCH ×2 (10:21→21:51)
[2016-11-21] MEDS: CORDARONE PO SCH ×3 (10:21→16:38)
[2016-11-21] MEDS: COLACE PO SCH ×2 (10:21→21:54)
[2016-11-21] MEDS: LASIX PO SCH (10:21)
[2016-11-21] MEDS: TESSALON PO SCH ×3 (10:21→16:38)
[2016-11-21] MEDS ORDERED: FLEET MINERAL OIL ENEMA PR ONE (10:36)
--- NOTE | 2016-11-21 15:47 | PROGRESS NOTE ---
DATE: 11/21/2016 SUBJECTIVE: The patient is resting comfortably in bed. Although she states that she feels a lot better. OBJECTIVE: Vital signs: Temperature 97, blood pressure 155/107, heart rate 88 , respirations 16 General: This is an elderly female lying in bed, in no acute distress. Head:Normocephalic and atraumatic. Heart: S1, S2 normal. Regular rate and rhythm. Lungs: Clear to auscultation bilaterally. Abdomen: Positive bowel sounds. Soft, nontender and nondistended. Extremities: She has pedal edema. No cyanosis. No calf tenderness. Neurologic: The patient is alert and oriented x3. DIAGNOSTIC DATA: White blood cell count is 4.9, hemoglobin 13, hematocrit 40, platelets 166. INR is 1.69. Sodium is 140, potassium 3.9, chloride 100, CO2 is 28, BUN is 28, creatinine 1.2, glucose 157, magnesium 2. ASSESSMENT AND PLAN: 1. Acute on chronic diastolic congestive heart failure exacerbation. Improved. The patient is on oral Lasix. 2. Paroxysmal atrial fibrillation. Continue Cardizem and Coumadin. We will continue to monitor the INR daily. 3. Constipation. The patient has not had a bowel movement yet. We will order an enema. 4. Diabetes mellitus type 2. Continue on Lantus with sliding scale insulin. 5. Hypothyroidism. Continue on Synthroid. 6. Facial moles. The patient will need to be referred to a supervisor motorcycle repair shop for a punch biopsy or excisional biopsy. 7. Continue with physical therapy. 8. Disposition. Hopefully the patient will be able to be discharged home tomorrow with home health services. cc: Ana López MD MTDD
[2016-11-21] MEDS: LANTUS SUBQ SCH (21:52)
[2016-11-21] MEDS: TYLENOL PM PO PRN (21:53)
[2016-11-21] MEDS: LIPITOR PO SCH (21:54)
[2016-11-21] MEDS: COUMADIN PO SCH (21:54)
[2016-11-21] MEDS: DULCOLAX PR SCH (22:08)
[2016-11-22] MEDS: DUONEB (A & A) INH SCH ×3 (05:07→11:14)
[2016-11-22] MEDS: HUMULIN R SUBQ SCH ×2 (06:05→11:07)
[2016-11-22] MEDS: PRILOSEC PO SCH (06:06)
[2016-11-22] MEDS: SYNTHROID PO SCH (06:06)
[2016-11-22 07:30] LABS: MANUAL DIFF NEEDED? NO
[2016-11-22 07:35] LABS: BASO% 0.3 % (0.0-0.8); EOS# 0.37 X1000 (0.0-0.7); EOS% 4.8 % (0.0-10.0); HEMATOCRIT 42.6 % (37.0-47.0); HEMOGLOBIN 13.7 g/dL (12.0-16.0); LYMPH# 1.42 X1000 (1.2-3.4); LYMPH% 18.4 % (20.5-51.1); MCH 29.4 PG (27-31); MCHC 32.2 g/dL (33-37); MCV 91.4 FL (81-99); MONO# 0.66 X1000 (0.11-0.59); MONO% 8.5 % (1.7-9.3); MPV 12.2 FL (7.4-10.4); PLT 196 X1000 (130-400); RBC 4.66 XMIL (4.2-5.4)
[2016-11-22] MEDS: LASIX PO SCH ×2 (07:44→08:03)
[2016-11-22] MEDS: APRESOLINE PO SCH ×3 (07:44→14:17)
[2016-11-22] MEDS: TESSALON PO SCH ×3 (07:44→16:21)
[2016-11-22] MEDS: CARDIZEM CD PO SCH ×2 (07:44→08:03)
[2016-11-22] MEDS: DULCOLAX PR SCH ×2 (07:44→08:05)
[2016-11-22] MEDS: COLACE PO SCH ×2 (07:44→08:03)
[2016-11-22] MEDS: CORDARONE PO SCH ×3 (07:44→14:17)
[2016-11-22] MEDS: MIRALAX PO SCH ×2 (07:44→08:04)
[2016-11-22 07:46] LABS: INR 1.89; PROTIME 20.7 Seconds (9.2-11.7)
[2016-11-22 07:50] LABS: CALCIUM 9.1 mg/dL (8.8-10.2); POTASSIUM 4.3 mmol/L (3.5-5.1)
[2016-11-22 11:11] VITALS: BP 141/77
[2016-11-22] MEDS: LIPITOR PO SCH (16:23)
--- NOTE | 2016-11-23 08:02 | DISCHARGE SUMMARY ---
ADMISSION DATE: 11/17/2016 DISCHARGE DATE: 11/22/2016 DISCHARGE DIAGNOSES: 1. Acute congestive heart failure exacerbation. 2. Atrial fibrillation with rapid ventricular response. 3. Diabetes. 4. Acute respiratory failure. DISCHARGE CONSULTATIONS: Benjamin Alejandro MD, Cardiology with Nirav Galdamez MD, her primary financial recording clerk following. HOSPITAL COURSE: Briefly, this is a very pleasant, 86-year-old female admitted on the for CHF. She was found to have an elevated BNP. She was fairly hypoxic requiring 6 L on admission. She came in, was placed on IV diuretics. Atrial fibrillation actually initially was sinus rhythm. Dr. Harrison was consulted. He saw the patient on the . Recommended amiodarone for her. She was continued to be diuresed for another 24 hours and slowly improved. By the , she was breathing more comfortably. I think she was down to 2 L. On Tuesday, she was felt to be stable to be discharged. Her weight 289 which I think the weight is somewhat inaccurate because we went from 186 to 289. Peak weight I think, I am going to say, was 190s. So, she lost several pounds. According to the diuretic numbers, she was -1.6 L on admission, 2.4 L the next day, 1.3 L the next day, 2.5 the next day, so all tolled 8 L diuresed based on the ins and outs data. Her INR is slightly subtherapeutic 1.89; this will need to be followed up as an outpatient. Dr. Galdamez did see her prior to discharge and adjusted her amiodarone dose. DISCHARGE MEDICATIONS: Tylenol PM, amiodarone 200 daily, Lipitor 40 daily, Cartia XT 240 daily, Lasix 80 daily, Lantus 35 daily, Synthroid 50 daily, methocarbamol 5 b.i.d., Actos 30 daily, MiraLAX 17 daily, and Coumadin. She has an alternating dose of 3 and 6 mg 6 mg with 6 mg Tuesday, Tuesday, Tuesday, and 3 mg Tuesday, Tuesday, , Tuesday. This may need to be further adjusted. DISCHARGE CONDITION: Stable. TIME SPENT: Thirty-five minute discharge. She will also be set up with home health. cc: Jose R. MD Nirav Leyva MD Bhavna Gowda, MD
== END 2016-11-22 17:10 | disposition home health service (06) ==
LOC: ED 10:51 → SUATTDRO 16:03 → 3N 16:03
PROVIDERS: ATTEND Internal Medicine

== ENCOUNTER 2016-12-03 06:06 | Inpatient (IN) ==
[2016-12-03] MEDS ORDERED: NS 1,000 ML IV ONE (06:39)
[2016-12-03] MEDS ORDERED: DULCOLAX PR ONE (06:44)
[2016-12-03 06:46] LABS: MANUAL DIFF NEEDED? NO
--- NOTE | 2016-12-03 06:47 | PROVIDER DOCUMENTATION ---
HPI-Abdominal Pain/GI Problem - General Chief Complaint: Constipation Stated Complaint: LOWER BACK PAIN/ CONSTIPATION Time Seen by Provider: 12/03/16 06:21 Source: patient Allergies/Adverse Reactions: Patient Allergies Allergy/AdvReac Type Severity Reaction Status Date / Time rosuvastatin calcium * AdvReac SWELLING Verified 12/03/16 06:28 [From Crestor] Home Medications: Home Medication List Medication Instructions Recorded Confirmed Last Taken Type Insulin Glargine [Lantus] 35 unit SUBQ QHS 05/22/13 12/03/16 12/02/16 History Levothyroxine [Synthroid] 50 microgm PO DAILY 05/22/13 12/03/16 12/02/16 History Warfarin Sodium [Coumadin] 6 mg PO DIRECTED 05/22/13 12/03/16 12/02/16 History ATORVAstatin [Lipitor] 40 mg PO QHS 06/11/13 12/03/16 12/02/16 History Furosemide [Lasix] 80 mg PO DAILY 06/11/13 12/03/16 12/02/16 History Pioglitazone [Actos] 1 tab PO DAILY 09/30/16 12/03/16 12/02/16 History Diltiazem HCl [Cartia Xt] 240 mg PO DAILY 11/17/16 12/03/16 12/02/16 History Methocarbamol 500 mg PO BID PRN 11/17/16 12/03/16 Unknown History Amiodarone [Cordarone] 200 mg PO DAILY #30 tablet 11/22/16 12/03/16 12/02/16 Rx Oxycodone/APAP 5 mg/325 mg 1 each PO Q8H PRN PRN #10 tablet 12/03/16 Unknown Rx [Percocet-5] Tramadol HCl 1 tab PO PRN PRN 12/03/16 12/03/16 Unknown History - History of Present Illness-ABD Nature of Presenting Problems: Reports she started Narcotics X a couple of days ago for her LBP by PCP. No BM since 4 days ago. Reports she is very constipated and vomited X 1. The pain med did not help her pain. Denies CP/SOB. On Coumadin for A-fib. DMII on insulin. Abdominal Pain Onset Location: reports: suprapubic Pain Radiation: reports: no radiation Quality of Pain: reports: aching, cramping Onset/Duration: reports: 4 days ago Timing: reports: still present Activities at Onset: reports: none Exposure to sick contacts?: No Modifying Factors: improves with: nothing Associated Symptoms: reports: anxiety, back/neck pain, constipation, malaise, nausea. denies: chest pain, cough, diaphoresis, rash, shortness of breath, vomiting, weakness Last BM: 4 days ago Dark Stools Present?: reports: none noticed Rectal Bleeding: reports: none # of Vomiting Episodes: 1 Emesis Description: reports: none Bruising or Bleeding Gums?: No Similar Symptoms Previously?: No Recently seen or treated by another doctor?: No Review of Systems - Adult - REVIEW OF SYSTEMS - ADULT Constitutional: reports: no symptoms reported Eyes: reports: no symptoms reported Ears, Nose, Mouth & Throat: reports: no symptoms reported Cardiovascular: reports: no symptoms reported Respiratory: reports: no symptoms reported Gastrointestinal: reports: see HPI, abdominal pain Genitourinary: reports: see HPI. denies: dysuria, discharge Musculoskeletal: reports: see HPI, back pain Integumentary: reports: no symptoms reported Neurological: reports: no symptoms reported Psychiatric: reports: no symptoms reported Endocrine: reports: no symptoms reported Hematologic/Lymphatic: reports: no symptoms reported Allergic/Immunologic: reports: no symptoms reported All Other Systems: Reviewed and Negative Past History - Adult - PAST MEDICAL HISTORY-ADULT Review of Records: reports: Old Records Reviewed, Nursing Assessment Review, Medications Reviewed, Social history reviewed & non-contributory. Major Childhood Illnesses: reports: denies history Cardiovascular: reports: A-Fib, CHF, HTN, hyperlipidemia Respiratory: reports: COPD Gastrointestinal: reports: denies history Obstetrical/Gynecological: reports: denies history Genitourinary: reports: denies history Musculoskeletal: reports: denies history Neurological: reports: dementia Psychiatric: reports: depression Endocrine/Immune: reports: Diabetes, thyroid disorder Other Conditions: reports: denies history - PRIOR SURGERIES/PROCEDURES Surgical/Procedure History: reports: cholecystectomy, hysterectomy, other ( catarct surgrey ) - IMMUNIZATION STATUS Childhood Immunizations: See Nurse Assessment Flu Vaccine: See Nurse Assessment - FAMILY HISTORY Family History: reviewed, not pertinent Physical Exam-General - PHYSICAL EXAM-ADULT Initial Vital Signs Reviewed: Yes - CONSTITUTIONAL General Appearance: appears well, alert, no apparent distress - EYES Eyes: PERRL/EOMI, pink conjunctivae - HEAD, EARS, NOSE, MOUTH & THROAT HENMT: normocephalic/atraumatic, moist mucous membranes - NECK Neck: non-tender, full range of motion, supple - RESPIRATORY Respiratory: chest non-tender, lungs clear, normal breath sounds, no pleuratic chest pain, no respiratory distress, no accessory muscle use - CARDIOVASCULAR Cardiovascular: normal peripheral pulses, regular rate, rhythm, no edema, no gallop, no JVD, no murmur - GASTROINTESTINAL (ABDOMEN) Abdominal Exam: normal bowel sounds, soft, no organomegaly, tenderness. negative: distended, guarding, rigid, rebound, McBurney's point tenderness, Sheehan's sign (Diffused lower bad tenderness, no guarding and no rebound.) - MUSCULOSKELETAL Back Exam: normal inspection, no CVA tenderness, no vertebral tenderness, CVA tenderness Extremity: normal range of motion, non-tender, normal gait, normal inspection - SKIN Integumentary: normal color, normal turgor, warm/dry - PSYCHIATRIC Psych/Mental Status: normal mood/affect, normal thought content, normal thought process, oriented x 3 Progress - PLAN OF CARE/RESULTS Progress/Plan/Lab Results: Vital Signs - 8 hr 12/03/16 06:05 Temperature 97.9 F Pulse Rate 78 Respiratory Rate 18 Blood Pressure 193/101 O2 Sat by Pulse Oximetry 98 Orders Category Date Time Status Saline Loc DIRECTED Care 12/03/16 06:39 Active NPO Diet 12/03/16 06:39 Active FLAT/UPRIGHT ABD/1 VIEW CHEST [RAD] Stat Exams 12/03/16 06:39 Ordered AMYLASE [CHEM] Stat Lab 12/03/16 06:39 Uncollected CBC WITH ELECTRONIC DIFF [HEME] Stat Lab 12/03/16 06:39 Uncollected COMPREHENSIVE METABOLIC PANEL [CHEM] Stat Lab 12/03/16 06:39 Uncollected LIPASE [CHEM] Stat Lab 12/03/16 06:39 Uncollected PROTIME WITH INR [COAG] Stat Lab 12/03/16 06:39 Uncollected TROPONIN T Stat Lab 12/03/16 06:39 Uncollected URINALYSIS W/POSS RFLX CULT-1 [URINALYSIS] Stat Lab 12/03/16 06:39 Uncollected 0.9% Sodium Chloride Inj [Ns] 1,000 ml Med 12/03/16 06:39 Ordered IV 250 mls/hr EKG [EKG] Stat Ther 12/03/16 06:39 Ordered Result Diagrams: 12/03/16 06:15 12/03/16 06:15 - CONSULTS/PCP/HOSPITALIST Notification Time Discussed: 10:36 Reason/Comments: Dr. Moy - home health Departure - Departure Time of Disposition Decision: 10:38 DIAGNOSIS: Compression fracture of L4 lumbar vertebra Qualifiers: Encounter type: initial encounter Fracture type: closed Qualified Code(s): S32.040A - Wedge compression fracture of fourth lumbar vertebra, initial encounter for closed fracture Disposition: HOME Certified Medical Emergency: Emergent Condition: Stable Additional Freetext Instructions: Follow up with Dr. Moy next Tuesday. Home health nurse will have more visits via Dr. Moy. Return to ER if your symptoms worsen. Prescriptions: Oxycodone/APAP 5 mg/325 mg [Percocet-5] 1 each PO Q8H PRN PRN #10 tablet PRN Reason: Pain Referrals and Follow-Ups: None,PCP [Primary Care Provider] - - Critical Care Note This patient required my direct & personal management of CC.: No
[2016-12-03 06:49] LABS: BASO% 0.1 % (0.0-0.8); EOS# 0.14 X1000 (0.0-0.7); EOS% 1.6 % (0.0-10.0); HEMATOCRIT 36.4 % (37.0-47.0); HEMOGLOBIN 11.8 g/dL (12.0-16.0); LYMPH# 0.58 X1000 (1.2-3.4); LYMPH% 6.7 % (20.5-51.1); MCH 28.9 PG (27-31); MCHC 32.4 g/dL (33-37); MCV 89.2 FL (81-99); MONO# 0.73 X1000 (0.11-0.59); MONO% 8.5 % (1.7-9.3); NEUT% 83.1 % (42.2-75.2); PLT 173 X1000 (130-400); RBC 4.08 XMIL (4.2-5.4)
[2016-12-03 07:08] LABS: INR 4.07; PROTIME 46.8 Seconds (9.2-11.7)
[2016-12-03 07:09] LABS: ALBUMIN 3.6 g/dL (3.5-5.0); CALCIUM 8.6 mg/dL (8.8-10.2); POTASSIUM 3.4 mmol/L (3.5-5.1); TOTAL BILIRUBIN 1.09 mg/dL (0.20-1.00); TOTAL PROTEIN 6.9 g/dL (6.3-8.3)
--- NOTE | 2016-12-03 07:11 | Diag Imaging Result Doc PS360 ---
FLAT/UPRIGHT ABD/1 VIEW CHEST - 12/03/2016 INDICATION: Abd pain/N/V TECHNIQUE: COMPARISON: 11/20/2016 FINDINGS: There are new diffuse interstitial opacities in the lungs compatible with pulmonary edema. There are probably trace effusions. There is mild cardiomegaly. There are cholecystectomy clips. There is a nonobstructive bowel gas pattern. No free air. IMPRESSION: 1. Pulmonary edema in the lungs. 2. No acute abnormality in the abdomen. Electronically signed by Ugo Martinez 12/03/2016 7:09 AM
[2016-12-03 08:04] LABS: URINE MICRO REVIEW NEEDED? NO; URINE SOURCE CLEAN CATCH
[2016-12-03 08:10] LABS: BILIRUBIN URINE NEGATIVE (NEGATIVE); BLOOD URINE NEGATIVE (NEGATIVE); COLOR YELLOW; GLUCOSE URINE NEGATIVE (NEGATIVE); LEUKOCYTES URINE NEGATIVE (NEGATIVE); NITRITE URINE NEGATIVE (NEGATIVE); PROTEIN URINE NEGATIVE (NEGATIVE); SP GRAVITY URINE 1.009; TURBIDITY URINE CLEAR (CLEAR); UROBILINOGEN URINE NORMAL (NORMAL)
[2016-12-03 08:12] LABS: UR EPITHELIAL CELLS <10 /HPF (<10); URINE BACTERIA 4+ /HPF; URINE CULTURE NEEDED? YES; URINE RBC <10 /HPF (<10); URINE WBC <10 /HPF (<10)
[2016-12-03] MEDS ORDERED: RELISTOR SUBQ ONE (08:21)
[2016-12-03] MEDS ORDERED: NORCO-7.5 PO ONE (09:51)
--- NOTE | 2016-12-03 09:53 | Diag Imaging Result Doc PS360 ---
LUMBAR SPINE - 12/03/2016 INDICATION: LBP TECHNIQUE: Six views COMPARISON: CT abdomen pelvis 10/03/2016 FINDINGS: There is gentle dextroscoliosis. There is mild compression deformity of L4, new since the prior CT. There are [id number]-ae-[id number] multilevel degenerative osteophytes throughout the lumbar spine diffusely. Disc spaces are overall well preserved. No pars defect. There is moderate multilevel facet degeneration. IMPRESSION: 1. New, subtle L4 compression fracture. 2. 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 Electronically signed by Ugo Martinez 12/03/2016 9:50 AM
[2016-12-03] MEDS ORDERED: ZOFRAN IV ONE (10:35)
[2016-12-03] MEDS ORDERED: MORPHINE IV ONE (10:35)
[2016-12-03] MEDS ORDERED: LOPRESSOR IV ONE (10:48)
--- NOTE | 2016-12-03 13:08 | HISTORY AND PHYSICAL ---
An 86-year-old admitted on 12/03/2016 with a history of diastolic heart failure, diabetes mellitus, paroxysmal atrial fib. She said she has been a little short of breath for a couple days but the main complaint is that she was tilling her garden and woke up about 2 or 3 days ago with extreme pain, the worst pain she has ever had in her lower back. Found to have, I believe, an L3 compression fracture. No fall reported. No fever or chills. PAST MEDICAL HISTORY: 1. Diastolic heart failure. Last reported ejection fraction 55% on 10/03/2016. There is a biatrial enlargement diastolic dysfunction that was noted. 2. Diabetes mellitus. 3. Paroxysmal atrial fib, on chronic anticoagulation. 4. Hypothyroidism. 5. Hyperlipidemia. PAST SURGICAL HISTORY: None. SOCIAL HISTORY: Patient is a , lives alone. Has no history of alcohol or tobacco or drug use. FAMILY HISTORY: Positive for coronary artery disease. REVIEW OF SYSTEMS: He did not report any weight gain or loss. No fever chills.HEENT: Unremarkable. Respiratory: A little more short of breath last couple of days. Cardiovascular: No chest pain or tachy palpitation. GI/: No gross hematuria or dysuria. Musculoskeletal/Neurologic: Just back pain. EXAM: Vital Signs: Afebrile. Temp 97.9 degrees. Pulse is 78. Respirations 18, blood pressure initially 193/101, later 175/93, pupils are equal, round. CVP less than 6 cm. Lungs: Clear in all lung garrison. Cardiovascular: Regular rate without murmur or S3. Abdomen: Soft. Skin: Warm and dry. LABORATORY AND IMAGING: White count 8630, hematocrit 36, platelet count 173,000. Sodium 136, potassium 3.4, chloride 96, bicarb 24, BUN 30, creatinine 1.1. Calcium was 8.6, liver functions unremarkable. ProBNP was 2668. ProTime is 46.8, INR 4. Urinalysis was 4+ bacteria. Less than 10 white blood cells, albumin 3.6. Abdominal x-ray- pulmonary edema In the lungs, no acute abnormality in the abdomen. Lumbar spine new subtle L4 compression fracture. Chronic malpositioning degeneration of the lumbar spine. ASSESSMENT AND PLAN: 1. Compression of the L4 partial compression; acute severe back pain and paralumbar muscle spasm. Admit for pain control and physical therapy. She will need to go to rehab from here. Right now, she is not able to walk without a great deal of assistance. 2. History of diastolic heart failure. There is a little bit of pulmonary edema. So we may do a little diuresis. She is on O2. 3. Diabetes mellitus type 2. We will check pattern sugars. 4. Hyperlipidemia. We will follow. 5. History of chronic atrial fibrillation. She is on amiodarone 200 mg a day, diltiazem 240 mg a day, Lasix 80 mg p.o. daily. We will go ahead and give her Lasix IV and will do 40 mg IV q. 12h. I will make sure she has a [place] catheter. 6. On chronic Coumadin. Note that her ProTime is a little high so we are going to hold the Coumadin. We will check ProTime every day. We will get social media marketing manager involved for disposition to see if we can find a rehab. I will also ask Orthopedics just to render an opinion on the back. I am not sure if this is one that would respond to kyphoplasty or if we need to pursue that. cc: Alli Baig MD
[2016-12-03 15:04] LABS: HEMOGLOBIN A1C 8.2 % (4.8-6.0)
--- NOTE | 2016-12-03 15:32 | EKG Report ---
Test Performed on : 12/03/2016 2:55:45 PM Test Reason : chf Blood Pressure : / mmHG Vent. Rate : 080 BPM Atrial Rate : 080 BPM P-R Int : 204 ms QRS Dur : 102 ms QT Int : 462 ms P-R-T Axes : 069 -39 -22 degrees QTc Int : 532 ms Normal sinus rhythm. Left axis deviation Possible Anterior infarct (cited on or before 17-NOV-2016) Prolonged QT Abnormal ECG When compared with ECG of 19-NOV-2016 06:12, Sinus rhythm. has replaced Atrial fibrillation. Questionable change in initial forces of Anteroseptal leads Nonspecific T wave abnormality has replaced inverted T waves in Lateral leads Confirmed by Javier MUNOZ, Dougie Jones ([id number]) on 12/03/2016 3:33:24 PM
[2016-12-03] MEDS: DUONEB (A & A) INH SCH ×3 (15:54→22:59)
[2016-12-03] MEDS: LASIX IV SCH (16:35)
[2016-12-03] MEDS: HUMALOG SUBQ SCH ×2 (16:36→22:34)
[2016-12-03] MEDS: NORCO-7.5 PO PRN (16:54)
[2016-12-03] MEDS: LANTUS SUBQ SCH (22:34)
[2016-12-03] MEDS: LIPITOR PO SCH (22:34)
[2016-12-04] MEDS: LASIX IV SCH (01:56)
[2016-12-04] MEDS: NORCO-7.5 PO PRN ×3 (01:56→17:41)
[2016-12-04] MEDS: DUONEB (A & A) INH SCH ×6 (03:34→22:56)
[2016-12-04] MEDS: SYNTHROID PO SCH (06:32)
[2016-12-04 06:37] LABS: HEMATOCRIT 33.9 % (37.0-47.0); HEMOGLOBIN 10.6 g/dL (12.0-16.0); MCH 29.1 PG (27-31); MCHC 31.3 g/dL (33-37); MCV 93.1 FL (81-99); MPV 11.9 FL (7.4-10.4); RBC 3.64 XMIL (4.2-5.4)
[2016-12-04] MEDS: HUMALOG SUBQ SCH ×4 (06:38→22:23)
[2016-12-04 07:06] LABS: INR 3.06; PROTIME 34.5 Seconds (9.2-11.7)
[2016-12-04 07:15] LABS: CALCIUM 8.2 mg/dL (8.8-10.2); POTASSIUM 3.5 mmol/L (3.5-5.1)
[2016-12-04] MEDS: ACTOS PO SCH (08:28)
[2016-12-04] MEDS: CORDARONE PO SCH (08:28)
[2016-12-04] MEDS: CARDIZEM CD PO SCH (08:28)
[2016-12-04] MEDS: ROBAXIN PO PRN (09:29)
[2016-12-04] MEDS ORDERED: MILK OF MAGNESIA PO ONE (13:10)
[2016-12-04] MEDS ORDERED: RELISTOR SUBQ ONE (13:14)
[2016-12-04] MEDS: MIRALAX PO PRN (15:28)
--- NOTE | 2016-12-04 16:16 | PROGRESS NOTE ---
DATE: 12/04/2016 SUBJECTIVE: Today Ms. Sanchez refers to be doing a lot better. According to her , she has not been able to pass any stool for the past 3 days and she wants something to help her move her bowels. OBJECTIVE: Vital signs: Blood pressure is 160/69, pulse of 72, respirations 20 , temperature is 98.2 degrees. General: Ms. Sanchez 86-year-old female. She is in bed. Did not seem to be in any distress. HEENT: Mucosa is pink and slightly dry. Anicteric. Acyanotic. Neck: Supple. Chest: Good air entry bilaterally. No crepitations. No rhonchi. Cardiovascular: Regular rate and rhythm. Abdomen: Soft, nontender. Extremities: No pedal edema. SCROLL ASSEMBLER: Patient is alert and oriented x4. There is no focal neurological deficit. LABORATORY DATA: WBC is 6.00, hemoglobin is 10.6, platelet count of 162,000. Chemistry is reviewed. BUN is 24, creatinine is 1.1. Rest of chemistry is unremarkable. B12 and folate normal. A calcium level is 8.2. X-ray of the lumbar spine done yesterday shows new subtle L4 compression fracture. ASSESSMENT: 1. Lumbago secondary to acute L4 compression fracture. Patient also has multiple degenerative lumbar spine disease. Will continue with adequate pain management and physical rehabilitation for this. Patient will need to go to a SNF or a rehabilitation center to help with the management of the low back pain. 2. History of diastolic heart failure. Clinically patient now actually looks slightly dehydrated so I will discontinue the IV form of Lasix and just put her back on her p.o. Lasix. 3. Severe constipation/obstipation. I have encouraged the patient to drink more fluid, move around some more, sit up in a chair. We will give her another shot of methylnaltrexone 12 mg subcu stat and continue with MiraLAX and milk of magnesia for symptoms management. 4. Diabetes mellitus. Will continue with the current plan. 5. History of atrial fibrillation currently rate controlled. Patient will continue with diltiazem and amiodarone p.o. and she is on warfarin for stroke prophylaxis. 6. Hypothyroidism. Will continue with the levothyroxine. So I think in general Ms. Sanchez is a whole lot better. Still has some back pain due to the fall and the fracture. She will need to continue adequate physical rehabilitation so will be arranging her discharge to a rehab center. She also has a lot of constipation issues. I think some of them is because of narcotic use at home. She has been given 1 dose of methylnaltrexone did not work, will repeat a dose and schedule her on symptoms relief medications. She has also been advised to keep herself well hydrated to help with some of the constipation. Patient has low calcium and these fractures at her age I suspect she has probably has osteoporotic bones. We will do a vitamin D level. She will need to be replaced if low. She will also need to do a bone scan (DEXA) somewhere along the line. This will be done with her PCP so that they can start her on bisphosphonate if indicated. cc: Albaro Rios MD MTDD
[2016-12-04] MEDS ORDERED: INSULIN PEN NEEDLES ONE (16:47)
--- NOTE | 2016-12-04 16:47 | CONSULTATION ---
DATE OF CONSULTATION: 12/04/2016 CHIEF COMPLAINT: Pain in low back. HISTORY OF PRESENT ILLNESS: The patient is a very pleasant and sweet 86-year-old female who was recently released from the hospital. The patient states that when she got home, she wanted to till her garden. She has a walk-behind tiller that she had one of her family members start for her. She states she tilled her garden like she routinely does. The patient states that after that she began having pain in the low back. She reports the pain persisted and was not getting any easier. She said after about 3 days of this, she had complained to her family enough that she was brought in for evaluation. The patient reports pain only in the back. She reports no numbness or tingling down the legs. There is no extension of the pain in the legs. She points rather specifically to the lower lumbar spine as the area if pain. She does have diabetes mellitus and states there is some neuropathy in her legs. She reports that neurologically nothing has changed outside of her normal neuropathy. She denies a fall. She reports the only thing different was working with the tiller. PAST MEDICAL HISTORY: Diastolic heart failure, diabetes mellitus, paroxysmal atrial fibrillation, hypothyroidism, hyperlipidemia. PAST SURGICAL HISTORY: Negative. CURRENT MEDICATIONS: As per chart and were reviewed with the patient. ALLERGIES: As per chart. SOCIAL HISTORY: Patient is and lives alone. She has no history of alcohol, tobacco, or drug use. FAMILY HISTORY: Noncontributory. REVIEW OF SYSTEMS: HEENT: The patient denies any macular degeneration or glaucoma. There is no current rhinitis or sore throat. Cardiac: She has a history of diastolic heart failure. She denies any history of myocardial infarction. She has no current chest pain. She does have a stable history of atrial fibrillation. Pulmonary: Patient denies any cough or shortness of breath. There is no history of asthma, COPD, or emphysema. Gastrointestinal: She denies any nausea, vomiting, or diarrhea. Genitourinary: She denies any increased urinary frequency or dysuria. Musculoskeletal: She denies any pain in the lower extremities. Spine: She has a new diagnosis of an L4 compression fracture. She denies any radiation of pain into the extremities. She denies any neurologic changes to the extremities. PHYSICAL EXAMINATION: The patient has 2+ DTRs in the bilateral lower extremities at the patella and Achilles reflex. Sensory dermatomes are fully intact. She has 5/5 motor strength in bilateral lower extremities with hip flexion and extension, knee flexion and extension, ankle dorsiflexion and plantar flexion. X-RAYS: Views of the lumbar spine reveal very mild anterior L4 compression fracture. There are significant arthritic changes and multiple level degenerative disk disease noted. IMPRESSIONS: 1. L4 compression fracture. 2. Degenerative disk disease, lumbar spine. 3. Spondylosis, lumbar spine. PLAN: We had a long discussion regarding treatment options. She is a very independent soul and states that she really is not wanting to consider even a brace at this time. She states that she is planning on going to rehabilitation from the hospital. I have told her that I believe the most aggressive treatment for this would be kyphoplasty, but she may very well recover this with a simple TLSO brace. She refused the bracing. At this point, we will sign off care. If patient is having trouble with sitting or ambulating, then she can be placed into a TLSO brace. I would like her to follow up with my partner, Dr. Maurice Muñiz, who is an orthopedic undercar specialist. I would like her to do this within the next 2 weeks. She states that she will consider this, but will not commit to it at this time. cc: Benjamin Kraft, DO
[2016-12-04] MEDS: LANTUS SUBQ SCH (22:25)
[2016-12-04] MEDS: LIPITOR PO SCH (22:25)
[2016-12-05] MEDS: DUONEB (A & A) INH SCH ×6 (03:10→22:59)
[2016-12-05] MEDS: NORCO-7.5 PO PRN ×3 (03:34→22:33)
[2016-12-05 06:11] LABS: HEMATOCRIT 34.8 % (37.0-47.0); HEMOGLOBIN 11.1 g/dL (12.0-16.0); MCH 29.3 PG (27-31); MCHC 31.9 g/dL (33-37); MCV 91.8 FL (81-99); RBC 3.79 XMIL (4.2-5.4)
[2016-12-05] MEDS: SYNTHROID PO SCH (06:28)
[2016-12-05 06:32] LABS: INR 2.19; PROTIME 24.2 Seconds (9.2-11.7)
[2016-12-05 06:53] LABS: CALCIUM 8.8 mg/dL (8.8-10.2); POTASSIUM 4.5 mmol/L (3.5-5.1)
[2016-12-05] MEDS: HUMALOG SUBQ SCH ×4 (07:59→22:31)
[2016-12-05] MEDS: VITAMIN D PO SCH (08:50)
[2016-12-05] MEDS: CORDARONE PO SCH (08:50)
[2016-12-05] MEDS: CARDIZEM CD PO SCH (08:50)
[2016-12-05] MEDS: ACTOS PO SCH (08:50)
[2016-12-05] MEDS ORDERED: LASIX PO SCH (09:00)
[2016-12-05] MEDS: NS 1,000 ML IV SCH ×2 (17:04→22:33)
[2016-12-05] MEDS: APRESOLINE PO SCH (17:05)
--- NOTE | 2016-12-05 18:10 | PROGRESS NOTE ---
DATE: 12/05/2016 SUBJECTIVE: Today Ms. Sanchez refers to be doing a lot better. She was actually sitting up in the chair when I saw her. OBJECTIVE: Vital signs: Blood pressure is 178/70, pulse of 80, respirations 16, temperature 97.7 degrees. General: Ms. Sanchez is an 86-year-old female. She was sitting up in the chair, no distress. HEENT: Mucosa is pink and moist. Anicteric. Acyanotic. Neck: Supple. Chest: Good air entry bilaterally. No crepitations. No rhonchi. Cardiovascular: Regular rate and rhythm. Abdomen: Soft, nontender. Extremities: No pedal edema. DATA MINER: Patient was alert and oriented. There is no focal neurological deficit. Musculoskeletal: Some tenderness to the lower lumbar spine. LABORATORY DATA: WBC is 5.51, hemoglobin is 11.1, platelet count of 179,000. Chemistry is reviewed. Sodium is 139, potassium is 4.5, chloride is 100, bicarb is 24, creatinine is 1.3. Patient does have a baseline creatinine of 1.1 to 1.3. CURRENT MEDICATIONS: 1. [place] 7.5 q.4 p.r.n. 2. Albuterol nebulizers. 3. Amiodarone 200 p.o. daily. 4. Atorvastatin 40 mg daily. Cholecalciferol 1000 units daily. 1. Diltiazem 240 p.o. daily. 2. Insulin glargine Lantus 35 units at bedtime. 3. Sliding scale insulin. 4. Synthroid 50 mcg daily. 5. Methocarbamol 500 b.i.d. Pioglitazone 30 mg daily. 1. MiraLAX 17 g p.o. daily p.r.n. 2. Normal saline at 75 mL per hour. ASSESSMENT: 1. Lumbago secondary to acute L4 compression fracture. The patient has been evaluated by orthopedic. She refused to wear the spine stabilizer, the spinal binder, and she also refused to follow up with spine orthopedic surgeon. 2. History of diastolic heart failure. Patient is stable. 3. Severe obstipation/constipation. This is improving patient did have 1 bowel movement yesterday. 4. Diabetes mellitus. Stable. 5. History of atrial fibrillation. Currently rate controlled. Patient is on diltiazem, amiodarone, and Coumadin for prophylaxis. 6. Hypothyroidism. Will continue with the levothyroxine. 7. Hypertension. Patient is not on any antihypertensives. We will start her on low-dose hydralazine for blood pressure control. I have chosen not to use an DOV because of her kidney issues. I want to see improvement in that before we put her on DOV inhibitors. 8. Chronic kidney disease stage 3A. Stable. cc: Albaro Rios MD
[2016-12-05] MEDS: LANTUS SUBQ SCH (22:32)
[2016-12-05] MEDS: LIPITOR PO SCH (22:33)
[2016-12-06] MEDS: DUONEB (A & A) INH SCH ×6 (03:05→23:00)
[2016-12-06] MEDS: MIRALAX PO PRN (03:43)
[2016-12-06] MEDS ORDERED: ZOFRAN IV PRN (04:35)
[2016-12-06] MEDS: HUMALOG SUBQ SCH ×4 (05:41→18:07)
[2016-12-06] MEDS: SYNTHROID PO SCH ×2 (05:44→08:00)
[2016-12-06 06:28] LABS: HEMATOCRIT 37.4 % (37.0-47.0); HEMOGLOBIN 11.9 g/dL (12.0-16.0); MCH 29.5 PG (27-31); MCHC 31.8 g/dL (33-37); MCV 92.8 FL (81-99); MPV 12.2 FL (7.4-10.4); RBC 4.03 XMIL (4.2-5.4)
[2016-12-06 07:09] LABS: CALCIUM 8.8 mg/dL (8.8-10.2); POTASSIUM 3.8 mmol/L (3.5-5.1)
[2016-12-06] MEDS: ACTOS PO SCH (08:24)
[2016-12-06] MEDS: APRESOLINE PO SCH ×3 (08:33→18:07)
[2016-12-06] MEDS: NORCO-7.5 PO PRN (08:33)
[2016-12-06] MEDS: CARDIZEM CD PO SCH (08:34)
[2016-12-06] MEDS: VITAMIN D PO SCH (08:34)
[2016-12-06] MEDS: CORDARONE PO SCH (08:34)
--- NOTE | 2016-12-06 10:50 | Diag Imaging Result Doc PS360 ---
EXAM: KUB ABDOMEN HISTORY: abdominal distension TECHNIQUE: Portable supine, two views COMPARISON: 12/03/2016. FINDINGS: There Is stool throughout the colon. The bowel loops are not dilated. No organomegaly. Mild scoliosis. There are surgical clips in the right upper quadrant cholecystectomy. IMPRESSION: Constipation. Electronically signed by Rubén Harper 12/06/2016 10:48 AM
[2016-12-06] MEDS ORDERED: DULCOLAX PR ONE ×2 (11:54→21:00)
--- NOTE | 2016-12-06 12:34 | PROGRESS NOTE ---
DATE: 12/06/2016 SUBJECTIVE: Today, Ms. Sanchez refers to be doing a lot better. According to her, she has some abdominal discomfort. The patient has not had any bowel movement for the past 5 days. OBJECTIVE: Vital Signs: Blood pressure is 152/69, pulse of 72, respirations 18 , temperature is 98.4 degrees. General: Ms. Sanchez is an 86-year-old female. She was in bed and did not seem to be in any remarkable distress. Mucosa slightly dry. Anicteric. Acyanotic. Neck is supple. Chest: Good air entry bilaterally. No crepitations. No rhonchi. Abdomen is soft, distended. Bowel sounds are hypoactive. Extremities: No pedal edema. PYTHON ARCHITECT: The patient is alert and oriented. There is no focal neurological deficit. Musculoskeletal: The patient continues to have some tenderness in the lower lumbar spine. Urine shows Klebsiella pneumonia, but the patient is completely asymptomatic, so we are not treating that. LABORATORY DATA: WBC is 6.84, hemoglobin is 11.9, platelet count of 210,000. Chemistry is reviewed. Creatinine is 1.1 which is consistent with her baseline creatinine which runs anywhere between 1.1-1.3. IMAGING: A KUB this morning shows stool throughout the colon. Bowels are not dilated. Impression is constipation. ASSESSMENT: 1. Lumbago secondary to acute L4 compression fracture. The patient has been evaluated by orthopedics and has been recommended to follow up with a spinal orthopedic surgeon but she refused and she also refusing to wear the spine stabilizer. For now, we will continue adequate pain control and patient will continue physical rehabilitation. 2. History of diastolic heart failure, stable. 3. Severe obstipation/constipation. X-rays confirmatory. The patient has been given 2 doses of Methynaltraxone that might help. She was started also on MiraLAX and has not moved her bowels. So, we will give her a rectal dose of Dulcolax and see if that will help. She was encouraged adequate hydration and physical rehabilitation to see if that all can help to move the bowel. 4. History of atrial fibrillation, currently rate controlled. The patient will continue on diltiazem and amiodarone. She is on Coumadin for stroke prophylaxis. 5. Hypothyroidism, controlled. 6. Hypertension, stable. 7. Chronic kidney disease, stage 3A, stable. 8. Vitamin D deficiency. We will continue with replacement. 9. Asymptomatic bacteruria: No treatment needed So, in all, I think the patient is relatively stable actually to be discharged to a rehab center; however, she has a lot of obstipation/constipation, so we will address this before she goes. If we are able to get the patient's bowels to move today, we might be able to discharge her today. If not, first thing tomorrow morning. cc: Albaro Rios MD MTDD
[2016-12-06] MEDS: NS 1,000 ML IV SCH (18:06)
[2016-12-06] MEDS ORDERED: COUMADIN PO SCH (21:00)
[2016-12-06] MEDS: LIPITOR PO SCH (21:11)
[2016-12-06] MEDS: ROBAXIN PO PRN (21:13)
[2016-12-07] MEDS: LANTUS SUBQ SCH (00:17)
[2016-12-07] MEDS: HUMALOG SUBQ SCH ×3 (00:17→12:07)
[2016-12-07] MEDS: DUONEB (A & A) INH SCH ×3 (03:05→11:31)
[2016-12-07] MEDS: NS 1,000 ML IV SCH (04:42)
[2016-12-07] MEDS ORDERED: FLEET ENEMA PR ONE (06:07)
[2016-12-07] MEDS: SYNTHROID PO SCH (06:19)
[2016-12-07 06:27] LABS: INR 1.14; PROTIME 12.1 Seconds (9.2-11.7)
[2016-12-07 06:30] LABS: CALCIUM 9.4 mg/dL (8.8-10.2); POTASSIUM 4.5 mmol/L (3.5-5.1)
[2016-12-07] MEDS ORDERED: COUMADIN PO SCH (08:37)
[2016-12-07] MEDS: ACTOS PO SCH (10:42)
[2016-12-07] MEDS: CARDIZEM CD PO SCH (10:42)
[2016-12-07] MEDS: CORDARONE PO SCH (10:42)
[2016-12-07] MEDS: APRESOLINE PO SCH ×2 (10:42→15:02)
[2016-12-07] MEDS: VITAMIN D PO SCH (10:42)
[2016-12-07 12:49] VITALS: BP 149/69
--- NOTE | 2016-12-07 13:10 | DISCHARGE SUMMARY ---
ADMISSION DATE: 12/03/2016 DISCHARGE DATE: 12/07/2016 CONSULTATIONS: Dr. Benjamin Kraft with orthopedics. PERTINENT PROCEDURES: 1. Lumbar x-ray showed new subtle L4 compression fracture, chronic malpositioning and degeneration of the lumbar spine. 2. Abdominal x-ray showed constipation. DISCHARGE DIAGNOSES: 1. Lumbago secondary to acute L4 compression fracture. Patient has been evaluated by orthopedics and recommend to follow up with a spinal orthopedic surgeon but has refused. Also refused to wear spine stabilizer. Will continue with physical therapy as well as pain control. Stable. 2. Diastolic heart failure history. Stable. 3. Severe obstipation/constipation. The patient was started on a bowel regimen. Encourage adequate hydration as well as physical therapy. The patient has had a bowel movement today. 4. Atrial fibrillation history. Rate controlled. 5. Hypothyroidism. Continue Synthroid. 6. Hypertension. Stable. 7. Chronic kidney disease stage 3A. Stable. 8. Vitamin D deficiency. Continue with supplementation. 9. Asymptomatic bacteriuria. No treatment needed. HOSPITAL COURSE: Ms. Sanchez is an 86-year-old female admitted on 12/03/2016. There is a history of diastolic heart failure, diabetes mellitus, paroxysmal atrial fibrillation, hypothyroidism, and hyperlipidemia. She came to the ED after feeling short of breath for a couple of days; that was her main complaint. She had also woke up in pain after tilling her garden. She described it as extreme pain and the worse pain she has ever had in her lower back. Her lumbar spine showed a new subtle L4 compression fracture and chronic malpositioning degeneration of the lumbar spine. The patient was admitted for an orthopedic consult, as well as pain control and to initiate physical therapy. Dr. Kraft with orthopedics saw the patient. They did have a long discussion regarding treatment options. She is very independent. She did not want to even consider a brace or surgical options at this time. So, they plan for physical therapy in the hospital and then transition to a rehab facility and because of the patient's refusal for brace or intervention, they signed off on care and gave her instructions to follow up with Dr. Muñiz, an orthopedic allergy and immunology specialist, in 2 weeks after her discharge. She did state that she would consider this but would not commit. sales representative facility services was consulted for rehab placement. However, the patient had some obstipation/constipation with an abdominal x-ray that showed constipation. She was started on a bowel regimen. The patient has had a BM and she is appropriate for discharge today at [facility]. VITAL SIGNS: Temperature is 98.6 degrees, heart rate 76, respirations 18, blood pressure 156/77, O2 96% on room air. DISCHARGE DIET: Diabetic. DISCHARGE MEDICATIONS: As per Dr. Rios. 1. Amiodarone 200 mg p.o. daily. 2. Lipitor 40 mg p.o. at bedtime. 3. Vitamin D3 1000 units p.o. daily. 4. Cartia XT 240 mg p.o. daily. 5. Apresoline 25 mg p.o. t.i.d. 6. Lantus 35 units subcutaneous at bedtime. 7. Synthroid 50 mcg p.o. daily. 8. Methocarbamol 500 mg p.o. b.i.d. 9. Percocet 1 each p.o. q.8 hours. 10. Actos 1 tablet p.o. daily, 30 mg. 11. MiraLAX 17 g p.o. daily. 12. Coumadin 5 mg p.o. at bedtime. FOLLOWUP: The patient is being discharged to [facility] in [place]. She will need to follow up with Dr. Muñiz in 2 weeks, if she will keep this appointment. The patient can follow up with her primary care physician of her choosing after rehab. Patient can return to the ED for any worsening of symptoms. DISCHARGE TIME: 30 minutes. Dictated by YAAKOV Cordova for Albaro Rios MD cc: Albaro Rios MD
== END 2016-12-07 15:05 ==
LOC: ED 06:06 → SUATTDRO 14:23 → 4N 14:23
PROVIDERS: ATTEND Internal Medicine

== ENCOUNTER 2017-01-10 00:13 | Inpatient (IN) ==
[2017-01-10] MEDS ORDERED: MORPHINE IV ONE (00:46)
[2017-01-10] MEDS ORDERED: NITROGLYCERIN TOP ONE (00:46)
[2017-01-10 01:36] LABS: MANUAL DIFF NEEDED? NO
[2017-01-10 01:36] LABS: URINE CULTURE NEEDED? NO; URINE MICRO REVIEW NEEDED? NO; URINE SOURCE CATH
[2017-01-10 01:40] LABS: BASO% 0.1 % (0.0-0.8); EOS# 0.34 X1000 (0.0-0.7); EOS% 3.9 % (0.0-10.0); HEMATOCRIT 36.6 % (37.0-47.0); HEMOGLOBIN 11.8 g/dL (12.0-16.0); IMM GRAN# 0.02 X1000 (0.0-0.04); IMM GRAN% 0.2 % (0.0-0.5); LYMPH# 1.16 X1000 (1.2-3.4); LYMPH% 13.3 % (20.5-51.1); MCH 28.9 PG (27-31); MCHC 32.2 g/dL (33-37); MCV 89.7 FL (81-99); MONO# 0.84 X1000 (0.11-0.59); MONO% 9.6 % (1.7-9.3); NEUT% 72.9 % (42.2-75.2); PLT 200 X1000 (130-400); RBC 4.08 XMIL (4.2-5.4)
[2017-01-10 01:51] LABS: BILIRUBIN URINE NEGATIVE (NEGATIVE); BLOOD URINE NEGATIVE (NEGATIVE); COLOR STRAW; GLUCOSE URINE NEGATIVE (NEGATIVE); LEUKOCYTES URINE NEGATIVE (NEGATIVE); NITRITE URINE NEGATIVE (NEGATIVE); PROTEIN URINE NEGATIVE (NEGATIVE); TURBIDITY URINE CLEAR (CLEAR); UR EPITHELIAL CELLS <10 /HPF (<10); URINE BACTERIA NEGATIVE /HPF; URINE RBC <10 /HPF (<10); URINE WBC <10 /HPF (<10); UROBILINOGEN URINE NORMAL (NORMAL)
[2017-01-10 02:13] LABS: ALBUMIN 3.6 g/dL (3.5-5.0); CALCIUM 8.8 mg/dL (8.8-10.2); POTASSIUM 3.3 mmol/L (3.5-5.1); TOTAL BILIRUBIN 0.61 mg/dL (0.20-1.00); TOTAL PROTEIN 6.7 g/dL (6.3-8.3)
--- NOTE | 2017-01-10 03:14 | PROVIDER DOCUMENTATION ---
This chart was entered by Derek Rouse Scribe, acting as scribe for Alex Monzon MD. HPI-Cardiac General - General Chief Complaint: Edema Stated Complaint: edems,back pain Time Seen by Provider: 01/10/17 00:27 Source: patient Allergies/Adverse Reactions: Patient Allergies Allergy/AdvReac Type Severity Reaction Status Date / Time rosuvastatin calcium * AdvReac SWELLING Verified 01/10/17 00:28 [From Crestor] Home Medications: Home Medication List Medication Instructions Recorded Confirmed Last Taken Type Insulin Glargine [Lantus] 35 unit SUBQ QHS 05/22/13 01/10/17 12/02/16 History Levothyroxine [Synthroid] 50 microgm PO DAILY 05/22/13 01/10/17 12/02/16 History ATORVAstatin [Lipitor] 40 mg PO QHS 06/11/13 01/10/17 12/02/16 History Pioglitazone [Actos] 1 tab PO DAILY 09/30/16 01/10/17 12/02/16 History Diltiazem HCl [Cartia Xt] 240 mg PO DAILY 11/17/16 01/10/17 12/02/16 History Methocarbamol 500 mg PO BID PRN 11/17/16 01/10/17 Unknown History Amiodarone [Cordarone] 200 mg PO DAILY #30 tablet 11/22/16 01/10/17 12/02/16 Rx Oxycodone/APAP 5 mg/325 mg 1 each PO Q8H PRN PRN #10 tablet 12/03/16 01/10/17 21:30 Rx [Percocet-5] Cholecalciferol (Vit D3) [Vitamin 1,000 unit PO DAILY #60 tablet 12/07/16 Unknown Rx D3] Hydralazine [Apresoline] 25 mg PO TID #90 tablet 12/07/16 01/10/17 Unknown Rx Polyethylene Glycol 3350 [Miralax] 17 gm PO DAILY PRN #60 powder, 12/07/1601/10 Unknown Rx packet Warfarin [Coumadin] 5 mg PO QHS #10 tablet 12/07/16 01/10/17 Unknown Rx Acetaminophen [Tylenol] 650 mg PO Q4H PRN PRN 01/10/17 01/10/17 Unknown History Bumetanide 4 mg PO BID 01/10/17 01/10/17 Unknown History Guaifenesin [Robafen] 200 mg PO PRN PRN 01/10/17 01/10/17 Unknown History Levothyroxine Sodium [Synthroid] 50 microgm PO DAILY 01/10/17 01/10/17 Unknown History Magnesium Hydroxide [Milk of 30 ml PO DAILY PRN PRN 01/10/17 01/10/17 Unknown History Magnesia] Methocarbamol 500 mg PO BID PRN PRN 01/10/17 01/10/17 Unknown History Potassium Chloride 20 meq PO DAILY 01/10/17 01/10/17 Unknown History - History of Present Illness-Cardiac Nature of Presenting Problem: Pt is a 86 yowf who presents to ER via EMS from [facility] with CC of bilateral pedal edema x5 weeks. Pt reports that she was sent to [facility] from here 5 weeks ago and states that she has noticed her feet have been swelling ever since. Pt reports that she is taking lasix, but has not had any relief. Pt also complains of a non-productive cough that has improved, and back pain from prior fx that is worsened when pt coughs. Severity in ED: mild, moderate Onset/Duration: other (x5 weeks) Timing: still present, getting worse Associated Symptoms: reports: back pain, edema (bilateral pedal edema). denies : abdominal pain, diaphoresis, dizziness, fatigue, fever/chills, headache, nausea, shortness of breath, swelling/lump in chest, syncope, vomiting, weakness Similar Symptoms Previously?: Yes Recently Seen Here or By Another Healthcare Provider: Yes Review of Systems - Adult - REVIEW OF SYSTEMS - ADULT Constitutional: denies: chills, fever, fatique, night sweats, weight gain, weight loss Eyes: reports: no symptoms reported Ears, Nose, Mouth & Throat: reports: no symptoms reported Cardiovascular: reports: edema. denies: chest pain, irregular heart rate, palpitations, poor circulation, syncope Respiratory: reports: cough, dyspnea on exertion. denies: chronic cough, excessive sputum production, shortness of breath, wheezing Gastrointestinal: reports: no symptoms reported Genitourinary: reports: no symptoms reported Musculoskeletal: reports: back pain, muscle aches. denies: bone pain, frequent leg cramps, joint pain, joint swelling, muscle weakness, neck pain Integumentary: reports: no symptoms reported Neurological: reports: no symptoms reported Psychiatric: reports: no symptoms reported Endocrine: reports: no symptoms reported Hematologic/Lymphatic: reports: no symptoms reported Allergic/Immunologic: reports: no symptoms reported All Other Systems: Reviewed and Negative Past History - Adult - PAST MEDICAL HISTORY-ADULT Review of Records: reports: Nursing Assessment Review, Medications Reviewed Cardiovascular: reports: A-Fib, CHF, HTN, hyperlipidemia Respiratory: reports: COPD Neurological: reports: dementia Psychiatric: reports: depression Endocrine/Immune: reports: Diabetes, thyroid disorder - PRIOR SURGERIES/PROCEDURES Surgical/Procedure History: reports: cholecystectomy, hysterectomy, other ( catarct surgrey ) - IMMUNIZATION STATUS Childhood Immunizations: See Nurse Assessment Flu Vaccine: See Nurse Assessment - FAMILY HISTORY Family History: reviewed, not pertinent Physical Exam-General - PHYSICAL EXAM-ADULT Initial Vital Signs Reviewed: Yes - CONSTITUTIONAL General Appearance: appears well, alert, moderate distress - EYES Eyes: PERRL/EOMI, pink conjunctivae - HEAD, EARS, NOSE, MOUTH & THROAT HENMT: moist mucous membranes, pharynx normal - RESPIRATORY Respiratory: chest non-tender, lungs clear, normal breath sounds, no pleuratic chest pain, no respiratory distress, no accessory muscle use. negative: respiratory distress, decreased breath sounds, accessory muscle use, wheezing - CARDIOVASCULAR Cardiovascular: normal peripheral pulses, regular rate, rhythm, systolic murmur (3/6 systolic ejection murmur). negative: bradycardia, tachycardia - GASTROINTESTINAL (ABDOMEN) Abdominal Exam: normal bowel sounds, non tender, soft, no organomegaly, no pulsatile mass. negative: guarding, rebound, tenderness - MUSCULOSKELETAL Back Exam: no CVA tenderness, no vertebral tenderness, vertebral tenderness ( lower lumbar tender). negative: CVA tenderness Extremity: pedal edema (4+ bilateral). negative: deformity, erythema, inflammation, swelling, tenderness - PSYCHIATRIC Psych/Mental Status: normal mood/affect, normal thought content, normal thought process, oriented x 3 Progress - PLAN OF CARE/RESULTS Progress/Plan/Lab Results: Vital Signs - 8 hr 01/10/17 00:18 01/10/17 01:59 01/10/17 02:15 Temperature 98.2 F Pulse Rate 85 84 83 Respiratory Rate 14 16 10 L Blood Pressure 169/66 150/68 152/69 O2 Sat by Pulse Oximetry 98 95 95 Laboratory Results - last 24 hr 01/10/17 01/10/17 01/10/17 01:10 01:10 01:10 WBC 8.71 RBC 4.08 L Hgb 11.8 L Hct 36.6 L MCV 89.7 MCH 28.9 MCHC 32.2 L RDW Std Deviation 16.3 H Plt Count 200 MPV 12.0 H Immature Gran % (Auto) 0.2 Neut % (Auto) 72.9 Lymph % (Auto) 13.3 L Kaufman % (Auto) 9.6 H Eos % (Auto) 3.9 Baso % (Auto) 0.1 Immature Gran # (Auto) 0.02 Neut # (Auto) 6.34 Lymph # (Auto) 1.16 L Kaufman # (Auto) 0.84 H Eos # (Auto) 0.34 Baso # (Auto) 0.01 Sodium 143 Potassium 3.3 L Chloride 97 L Carbon Dioxide 30 Anion Gap 16 BUN 27 H Creatinine 1.3 H Estimated GFR/1.73 m2 39 BUN/Creatinine Ratio 21 Glucose 114 H Calculated Osmolality 291 Calcium 8.8 Total Bilirubin 0.61 AST 21 ALT 18 Alkaline Phosphatase 89 [id number] Pept 1309 H Total Protein 6.7 Albumin 3.6 Globulin 3.1 Albumin/Globulin Ratio 1.2 Urine Source Urine Color Urine Turbidity Urine pH Ur Specific [place] Urine Protein Ur Glucose (Stick) Ur Ketones (Stick) Urine Blood Urine Nitrite Urine Bilirubin Urobilinogen Dipstick Urine Leukocytes Urine WBC (Auto) Urine RBC (Auto) U Epithel Cells (Auto) Urine Bacteria (Auto) 01/10/17 01:20 WBC RBC Hgb Hct MCV MCH MCHC RDW Std Deviation Plt Count MPV Immature Gran % (Auto) Neut % (Auto) Lymph % (Auto) Kaufman % (Auto) Eos % (Auto) Baso % (Auto) Immature Gran # (Auto) Neut # (Auto) Lymph # (Auto) Kaufman # (Auto) Eos # (Auto) Baso # (Auto) Sodium Potassium Chloride Carbon Dioxide Anion Gap BUN Creatinine Estimated GFR/1.73 m2 BUN/Creatinine Ratio Glucose Calculated Osmolality Calcium Total Bilirubin AST ALT Alkaline Phosphatase [id number]-[id number] Pept Total Protein Albumin Globulin Albumin/Globulin Ratio Urine Source CATH Urine Color STRAW Urine Turbidity CLEAR Urine pH 7.0 Ur Specific [place] 1.010 Urine Protein NEGATIVE Ur Glucose (Stick) NEGATIVE Ur Ketones (Stick) NEGATIVE Urine Blood NEGATIVE Urine Nitrite NEGATIVE Urine Bilirubin NEGATIVE Urobilinogen Dipstick NORMAL Urine Leukocytes NEGATIVE Urine WBC (Auto) <10 Urine RBC (Auto) <10 U Epithel Cells (Auto) <10 Urine Bacteria (Auto) NEGATIVE Orders Category Date Time Status Blackwell Cath Insertion ORDERED Care 01/10/17 00:50 Active CHEST-1 VIEW [RAD] Stat Exams 01/10/17 00:46 Taken LUMBAR SPINE [RAD] Stat Exams 01/10/17 00:46 Taken CBC WITH DIFF [HEME] Stat Lab 01/10/17 01:10 Completed COMPREHENSIVE METABOLIC PANEL [CHEM] Stat Lab 01/10/17 01:10 Completed PRO B-NATRIURETIC PEPTIDE Stat Lab 01/10/17 01:10 Completed URINALYSIS W/POSS RFLX CULT [URINALYSIS] Stat Lab 01/10/17 01:20 Completed Morphine Med 01/10/17 00:46 Discontinued 4 mg IV NOW ONE Nitroglycerin Med 01/10/17 00:46 Discontinued 1 inch TOP NOW ONE EKG [EKG] Stat Ther 01/10/17 00:46 Ordered Result Diagrams: 01/10/17 01:10 01/10/17 01:10 - XRAY 1 XRAY: Bilateral XRAY Study: Lumbar Spine Impression: See EMR Report Comparison with other Films: no changes (unchanged from prior study on 12/03/2016 ) XRAY Interpretation: compression fx of L4 - Dr. Monzon 2 XRAY: Bilateral XRAY Study: Chest Impression: See EMR Report XRAY Interpretation: CHF - Dr. Monzon - CONSULTS/PCP/HOSPITALIST Notification #1 *Consult/PCP/Hospitalist*: Dr. Domingo (Hospitalist) Time Discussed: 02:57 Consult Disposition: Admit Departure - Departure Date of Disposition Decision: 01/10/17 Time of Disposition Decision: 03:12 DIAGNOSIS: CHF (congestive heart failure), NYHA class IV Qualifiers: Congestive heart failure type: unspecified congestive heart failure type Qualified Code(s): I50.9 - Heart failure, unspecified Lumbar compression fracture Qualifiers: Encounter type: initial encounter Fracture type: closed Qualified Code(s): S32.000A - Wedge compression fracture of unspecified lumbar vertebra, initial encounter for closed fracture Disposition: ADMITTED INPATIENT 09 Certified Medical Emergency: Emergent Condition: Good Referrals and Follow-Ups: Elo Moy MD [Primary Care Provider] - - Critical Care Note This patient required my direct & personal management of CC.: No This chart was documented by the indicated scribe, (Derek Rouse Scribe) and accurately reflects the services I performed and decisions made by me, Alex Monzon MD, as attested by the provider's signature.
[2017-01-10] MEDS ORDERED: LASIX IV ONE (03:27)
[2017-01-10] MEDS ORDERED: DILAUDID IV ONE (04:07)
[2017-01-10 04:21] LABS: INR 4.8; PROTIME 55.7 Seconds (9.2-11.7); PTT 53.2 Seconds (22.0-36.0)
[2017-01-10] MEDS ORDERED: ROBAXIN PO PRN (05:07)
[2017-01-10] MEDS ORDERED: MIRALAX PO PRN (05:07)
[2017-01-10] MEDS ORDERED: MILK OF MAGNESIA PO PRN (05:07)
[2017-01-10] MEDS ORDERED: TYLENOL PO PRN (05:07)
[2017-01-10 05:32] LABS: HEMOGLOBIN A1C 7.8 % (4.8-6.0)
--- NOTE | 2017-01-10 05:58 | EKG Report ---
Test Performed on : 01/10/2017 01:48:09 AM Test Reason : chf Blood Pressure : / mmHG Vent. Rate : 088 BPM Atrial Rate : 088 BPM P-R Int : 202 ms QRS Dur : 104 ms QT Int : 438 ms P-R-T Axes : 061 018 031 degrees QTc Int : 529 ms Sinus rhythm. with occasional premature ventricular complexes. Otherwise normal ECG When compared with ECG of 03-DEC-2016 14:55, premature ventricular complexes. are now present Borderline criteria for Anterior infarct are no longer present Nonspecific T wave abnormality, improved in Inferior leads Nonspecific T wave abnormality no longer evident in Anterior leads Unconfirmed Result
--- NOTE | 2017-01-10 06:05 | HISTORY AND PHYSICAL ---
CHIEF COMPLAINT: Back pain. PRIMARY CARE PROVIDER: Dr. Moy. HISTORY OF PRESENT ILLNESS: This is an 86-year-old female who was last admitted to our service on 12/03/2016. She has a history of diastolic heart failure, diabetes mellitus, paroxysmal atrial fibrillation. She has had mild shortness of breath but mostly has complaint of lower extremity edema which is chronic. She also has a known L3-L4 compression fracture with no falls. She is having severe back pain and she was admitted on 12/03/2016 for muscle spasm and severe back pain. She has had a nonproductive cough and has been at [facility]. She reportedly did receive antibiotics at her stay at rehab for a cough and congestion. She has nonproductive to mild clear mucus at this time. Chest x-ray was obtained which showed mildly increased pulmonary vascular markings. The patient will be admitted for further evaluation and treatment. PAST MEDICAL HISTORY: 1. Diastolic heart failure. Ejection fraction 55% on 10/03/2016. Noted biatrial enlargement as well. 2. Diabetes mellitus. 3. Paroxysmal atrial fibrillation, on chronic Coumadin anticoagulation. 4. Hypothyroidism. 5. Hyperlipidemia. PREVIOUS SURGICAL HISTORY: 1. Cholecystectomy. 2. Cataract surgery. 3. Hysterectomy. SOCIAL HISTORY: She is . Was living home alone, is at [facility]. She smoked around a half a year in her 20s half a pack a day and then quit. No alcohol or illicit drug use or abuse. FAMILY HISTORY: Positive for coronary artery disease, otherwise unremarkable. ALLERGIES: Crestor, causing swelling. HOME MEDICATIONS: 1. Synthroid 50 mcg p.o. daily. 2. Lantus 35 units subcutaneously at bedtime. 3. Lipitor 40 mg p.o. daily. 4. Actos 1 mg p.o. daily. 5. Robaxin 500 mg p.o. b.i.d. p.r.n. 6. Diltiazem 240 mg p.o. daily. 7. Amiodarone 200 mg p.o. daily. 8. Percocet 5 one p.o. q.8 p.r.n. 9. Apresoline 25 mg p.o. t.i.d. 10. MiraLAX 17 g p.o. daily. 11. Coumadin 5 mg p.o. at bedtime. 12. Vitamin D3 1000 units p.o. daily. 13. Tylenol 650 p.o. q.4 p.r.n. 14. Bumex 4 mg p.o. b.i.d. 15. Synthroid 50 mcg p.o. daily. 16. Guaifenesin 200 mg p.o. p.r.n. 17. Milk of Magnesia 30 mL p.o. daily p.r.n. 18. Potassium chloride 20 mEq p.o. daily. REVIEW OF SYSTEMS: Fourteen point review of systems conducted with the patient. Pertinent positives listed above in the HPI. All other systems reviewed and found to be negative. PHYSICAL EXAMINATION: VITAL SIGNS: Temperature 98.4 degrees, pulse 84, respirations 16, blood pressure 146/66, oxygen saturation 95% on 2 L nasal cannula. GENERAL: Very pleasant 86-year-old female lying in the ER stretcher. Has complained of back pain when she coughs. Answers all questions appropriately. Otherwise, no acute distress. HEENT: Head is atraumatic, normocephalic. Pupils equal, round, reactive to light. Extraocular eye movement intact. Sclerae is anicteric. Conjunctivae is pink. Oral mucosa is moist. NECK: Supple. No JVD. No hepatojugular reflex. No carotid bruit on auscultation. Trachea is midline. CARDIAC: S1-S2 appreciated. No murmurs, gallops, rubs. Regular rhythm. LUNGS: Clear to auscultation bilaterally. No rhonchi, wheezes or rales. Symmetrical rise and fall with respirations. ABDOMEN: Soft, nondistended, nontender. Bowel sounds hypoactive all 4 quadrants. No pulsatile mass. No organomegaly. EXTREMITIES: 2+ pitting edema bilateral lower extremities. 2+ pedal pulses bilaterally. GENITOURINARY: Blackwell catheter in place draining light yellow urine. Otherwise , deferred. NEUROLOGICAL: Alert and oriented x3. Cranial nerves 2-12 appear to be grossly intact. SKIN: Warm, dry, intact. No acute lesions or rash. DIAGNOSTIC DATA: Lumbar spine x-ray shows stable compression fracture from previous examination. Chest x-ray shows mildly increased pulmonary vascular congestion. LABORATORY DATA: WBC 8.71, hemoglobin 11.8, hematocrit 36.6, platelet count 200 ,000. PTT 55.7, INR 4.80. Sodium 143, potassium 3.3, chloride 97, carbon dioxide 30, BUN 27, creatinine 1.3 glucose 114. Urine unremarkable. ASSESSMENT: 1. Diastolic congestive heart failure with exacerbation, increased pulmonary vascular congestion noticed on x-ray, mildly increased pro BMP and 2+ pitting edema. Patient takes Bumex 4 mg p.o. b.i.d. We will continue. We will give 40 of Lasix in the emergency room. 2. Back pain secondary to L4 partial compression fracture. This is stable from previous examination. However, she is having severe back pain and muscle spasm related to cough. We will continue Robaxin. We will continue Percocet. We will give an additional dose of morphine in the emergency room. 3. Paroxysmal atrial fibrillation. We will continue amiodarone as well as Cardizem. Please note that Cardizem can contribute to the lower extremity edema that the patient has a complaint of but it will be continued. We will also continue her Coumadin. She is supratherapeutic on her INR. It is 4.80 so it will be checked daily and restarted when the patient' s INR is back within normal range. 4. Diabetes mellitus type 2. We will hold Actos as it can contribute to lower extremity edema which the patient had a complaint of. We will continue her Lantus 35 units subcu and add fingersticks q.a.c. and at bedtime with sliding scale insulin coverage. 5. Hyperlipidemia. Continue statin. 6. Hypertension. Continue Apresoline. Further recommendations per patient clinical course. Seen,examined and discussed case with [employer] [employer]. Dictated by YAAKOV Daniel for Philip Domingo MD cc: YAAKOV Daniel MD Bhavna Gowda, MD [facility]
[2017-01-10] MEDS: PERCOCET-5 PO PRN ×3 (06:49→19:19)
[2017-01-10] MEDS: SYNTHROID PO SCH (06:49)
[2017-01-10] MEDS: HUMALOG SUBQ SCH ×4 (06:50→22:16)
--- NOTE | 2017-01-10 07:26 | Diag Imaging Result Doc PS360 ---
EXAM: LUMBAR SPINE HISTORY: back pain, hx of lumbar fx TECHNIQUE: Six views with obliques COMMENT: There is curvature of the lumbar spine with convexity to the right. There is generalized osteopenia. The pedicles appear to be intact. There is loss of height of the L4 vertebral body however this was also the case at the time the previous study of 12/03/2016. It is possible, however, that the degree of compression of the L4 vertebral body has worsened since the previous study. There is vacuum disc phenomenon at the L4-5 level which was not evident at the time the previous study. 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 Electronically signed by Cecilio Gomez 01/10/2017 7:24 AM
--- NOTE | 2017-01-10 07:30 | Diag Imaging Result Doc PS360 ---
EXAM: CHEST-1 VIEW HISTORY: SOB, cough TECHNIQUE: AP supine COMMENT: There is interstitial opacity bilaterally. There is has been improvement in opacification of the left lower lobe since the previous study of 12/03/2016. There is less pleural fluid on the left as well. The possibility of bilateral lower lobe bronchiectasis cannot be excluded. IMPRESSION: Interstitial pulmonary edema and possible bronchiectasis. Electronically signed by Cecilio Gomez 01/10/2017 7:27 AM
[2017-01-10] MEDS ORDERED: BUMEX PO SCH (09:00)
[2017-01-10] MEDS ORDERED: CARDIZEM CD PO SCH (09:00)
[2017-01-10] MEDS: APRESOLINE PO SCH ×3 (09:36→22:16)
[2017-01-10] MEDS: CORDARONE PO SCH (09:36)
[2017-01-10] MEDS: KLOR-CON PO SCH (09:36)
[2017-01-10] MEDS: VITAMIN D PO SCH (09:36)
[2017-01-10] MEDS: LOVENOX SUBQ SCH ×2 (09:37→10:31)
--- NOTE | 2017-01-10 12:05 | CONSULTATION ---
DATE OF CONSULTATION: 01/10/2017 INDICATION: Shortness of breath, CHF. HISTORY OF PRESENT ILLNESS: Ms. Sanchez is an 86-year-old white female who was admitted with complaints of shortness of breath and weakness. She has been somewhat weak for the last several weeks but more recently has over the last 2-3 days been more short of breath. No overt orthopnea but she reports significant shortness of breath with ambulation and increasing lower extremity edema. Apparently, she may have had some adjustment in her diuretics at [facility] but she does not have any clarity as to which ones those are. She has had some worsening trouble with her back pain as well but this sounds like a fairly chronic issue for her. PAST MEDICAL HISTORY: 1. Significant for diastolic heart failure with a preserved EF as of September 2016. 2. Diabetes. 3. Paroxysmal atrial fib, maintained on Coumadin. 4. Hypothyroidism. 5. Hyperlipidemia. SOCIAL HISTORY: . Currently in [facility]. No recent tobacco use. No illicit drugs or alcohol abuse. FAMILY HISTORY: Significant for coronary disease but not early. REVIEW OF SYSTEMS: A 10 system review of systems is negative except for those things mentioned in the HPI. PHYSICAL EXAMINATION: Vital signs: Afebrile, heart rate of 85, blood pressure 157/65. General: She is in no acute distress. HEENT: Oropharynx is moist. Normal dentition. Eye examination shows pink conjunctivae, white sclerae. Neck: No obvious thyromegaly or thyroid tenderness. Cardiovascular: She is in a regular rate and rhythm. She has no obvious murmurs. She has no S3. She has 1 to 2+ bilateral lower extremity edema and warm and well perfused lower extremities. Chest: Rales noted fpc up her upper chest. Bilaterally no increased work of breathing. Abdomen: Soft, nontender, nondistended. She has no obvious organomegaly. Skin: Warm and dry throughout without any rashes. Neurological: Moving all extremities well. Cranial nerves 2 through 12 are intact without any sensation deficits. Psychiatric: Alert, oriented, pleasant. Normal mood and affect. PERTINENT DATA: Her EKG shows a heart rate of 88, borderline first-degree block with a [place] interval of 202. Otherwise no significant abnormalities. Her chest x-ray demonstrated increased pulmonary vascular markings, possible bronchiectasis. White count is 8.7, hematocrit 36.6, platelet count 200,000. INR is 4.8. Sodium is 143, potassium 3.3, BUN 27, creatinine 1.3. ProBNP is 1,309. ASSESSMENT: Likely diastolic heart failure. PLAN: I will discontinue her diltiazem. Place her on Toprol 50 mg daily. She is already on IV diuretics and seems to be diuresing reasonably well with an output of 1.7 L total negative over the course of this hospitalization. We will continue on current medications. I will ensure she has a BMP and a BNP ordered in the morning. cc: Nirav Galdamez MD
[2017-01-10] MEDS: LASIX IV SCH (15:54)
[2017-01-10] MEDS: LIPITOR PO SCH (22:16)
[2017-01-10] MEDS: LANTUS SUBQ SCH (22:17)
[2017-01-11] MEDS: PERCOCET-5 PO PRN ×4 (02:04→20:44)
[2017-01-11] MEDS: ZOFRAN IV PRN (02:04)
[2017-01-11] MEDS: LASIX IV SCH ×2 (02:04→14:50)
[2017-01-11] MEDS: SYNTHROID PO SCH (06:33)
[2017-01-11 07:50] LABS: MANUAL DIFF NEEDED? NO
[2017-01-11 07:59] LABS: BASO% 0.2 % (0.0-0.8); EOS# 0.26 X1000 (0.0-0.7); HEMATOCRIT 33.2 % (37.0-47.0); HEMOGLOBIN 10.5 g/dL (12.0-16.0); IMM GRAN# 0.02 X1000 (0.0-0.04); IMM GRAN% 0.2 % (0.0-0.5); LYMPH% 12.9 % (20.5-51.1); MCH 28.7 PG (27-31); MCHC 31.6 g/dL (33-37); MCV 90.7 FL (81-99); MONO# 0.68 X1000 (0.11-0.59); NEUT% 75.7 % (42.2-75.2); PLT 191 X1000 (130-400); RBC 3.66 XMIL (4.2-5.4)
[2017-01-11 08:11] LABS: CALCIUM 8.4 mg/dL (8.8-10.2); POTASSIUM 3.3 mmol/L (3.5-5.1)
[2017-01-11] MEDS: TOPROL XL PO SCH (08:45)
[2017-01-11] MEDS: APRESOLINE PO SCH ×3 (08:45→20:35)
[2017-01-11] MEDS: VITAMIN D PO SCH (08:45)
[2017-01-11] MEDS: KLOR-CON PO SCH (08:45)
[2017-01-11] MEDS: CORDARONE PO SCH (08:45)
[2017-01-11] MEDS ORDERED: KLOR-CON PO ONE (09:10)
--- NOTE | 2017-01-11 10:24 | PROGRESS NOTE ---
DATE: 01/11/2017 SUBJECTIVE: This patient feels much better. She has no complaint of chest pain or shortness of breath, no acute events overnight. Cardiology Department is following this patient. OBJECTIVE: Vital Signs: Temperature 98.3 degrees, pulse 74, respiratory rate 18, blood pressure 130/50, oxygen saturation 98 on 2 L of nasal cannula. HEENT: Head normocephalic. No trauma. PERRLA. Neck: Supple. No JVD. No masses. Central trachea. Chest: Generalized crackles at the mid lung and bases, no wheezing. Abdomen: Soft, nontender, nondistended. No hepatosplenomegaly. Extremities: No edema. No clubbing. No cyanosis. Neurological examination: The patient is alert and oriented x3. No focal neurological deficits. LABORATORY: WBC 8.5, hemoglobin 10.5, hematocrit 33.2, platelets 191. Sodium 140, potassium 3.3, chloride 96, bicarbonate 33. BUN 30, creatinine 1.3, glucose 129, calcium 8.4. BNP 1531. TSH 1.3. ASSESSMENT AND PLAN: 1. Diastolic heart failure exacerbation, continue with intravenous Lasix, this patient feels much better. Brain natriuretic peptide increased a little bit. Cardiology Department is following this patient. We will continue to follow their recommendations. 2. Back pain secondary to L4 partial compression fracture. Continue with the same management. 3. Paroxysmal atrial fibrillation, stable. She has supratherapeutic INR, pending PT/INR today. She has been on warfarin, but it was held because of the high INR. 4. Type 2 diabetes. We will continue with the same management for now. This is controlled. 5. Hyperlipidemia. Continue with statin. 6. Hypertension. This patient is on hydralazine and metoprolol, the blood pressure has been stable. We will continue to monitor. cc: Guanaco Ambrocio MD
[2017-01-11 10:27] LABS: INR 3.51; PROTIME 39.9 Seconds (9.2-11.7)
[2017-01-11] MEDS: HUMALOG SUBQ SCH ×3 (11:33→20:38)
--- NOTE | 2017-01-11 13:22 | PROGRESS NOTE ---
DATE: 01/11/2017 SUBJECTIVE: Ms. Sanchez reports she is doing better today. Her shortness of breath has improved. She has no orthopnea. PHYSICAL EXAMINATION: Vital signs: Afebrile, heart rate 74, blood pressure of 130/50. Her I's and O's over the course of the hospitalization are -575 mL with 2 voids not measured. General: No acute distress. Cardiovascular: Regular rate and rhythm. No murmurs. He has no S3. She has 1+ lower extremity edema. Chest: Has some mild basilar rales most notable on the right base. No increased work of breathing. Abdomen: Soft, nontender. PERTINENT DATA: Her proBNP is 1,531 today. Her BUN and creatinine are 30 and 1.3. Potassium 3.3. His white count is 8.5, hematocrit 33.2, platelet count is 191,000. ASSESSMENT: Diastolic heart failure. PLAN: We will continue her on her current rate of diuresis with Lasix 40 mg IV b.i.d. She is getting potassium repletion. We will place her on a fluid restriction. Labs to be checked in the morning. cc: Nirav Galdamez MD
[2017-01-11] MEDS: LIPITOR PO SCH (20:35)
[2017-01-11] MEDS: LANTUS SUBQ SCH (20:35)
[2017-01-12] MEDS: LASIX IV SCH (03:42)
[2017-01-12] MEDS: ZOFRAN IV PRN (03:51)
[2017-01-12] MEDS: PERCOCET-5 PO PRN ×4 (03:52→23:32)
[2017-01-12] MEDS: SYNTHROID PO SCH (06:03)
[2017-01-12] MEDS: HUMALOG SUBQ SCH ×4 (06:32→21:25)
[2017-01-12 07:01] LABS: MANUAL DIFF NEEDED? NO
[2017-01-12 07:14] LABS: BASO% 0.1 % (0.0-0.8); EOS# 0.32 X1000 (0.0-0.7); EOS% 3.7 % (0.0-10.0); HEMATOCRIT 32.1 % (37.0-47.0); HEMOGLOBIN 10.1 g/dL (12.0-16.0); LYMPH# 1.09 X1000 (1.2-3.4); LYMPH% 12.5 % (20.5-51.1); MCH 29.5 PG (27-31); MCHC 31.5 g/dL (33-37); MCV 93.9 FL (81-99); MPV 11.9 FL (7.4-10.4); NEUT% 75.7 % (42.2-75.2); PLT 176 X1000 (130-400); RBC 3.42 XMIL (4.2-5.4)
[2017-01-12 07:54] LABS: CALCIUM 8.2 mg/dL (8.8-10.2); POTASSIUM 4.1 mmol/L (3.5-5.1)
[2017-01-12 08:08] LABS: INR 3.46; PROTIME 39.3 Seconds (9.2-11.7)
[2017-01-12] MEDS: TOPROL XL PO SCH (09:44)
[2017-01-12] MEDS: VITAMIN D PO SCH (09:44)
[2017-01-12] MEDS: CORDARONE PO SCH (09:44)
[2017-01-12] MEDS: APRESOLINE PO SCH ×3 (09:44→17:06)
[2017-01-12] MEDS: KLOR-CON PO SCH (09:46)
[2017-01-12] MEDS ORDERED: LASIX IV ONE (13:32)
--- NOTE | 2017-01-12 14:17 | PROGRESS NOTE ---
DATE: 01/12/2017 SUBJECTIVE: Ms. Sanchez reports she is doing a little bit better today. Her shortness of breath has improved, as has her cough. PHYSICAL EXAMINATION: Vital Signs: She is afebrile. Heart rate is in the 60s to 70s. Blood pressure 133/57. Her I's and O's for the course of the hospitalization have been -2.1 L. General: No acute distress. Cardiovascular: Regular rate and rhythm. No murmurs. No S3. She has 1+ lower extremity edema. Chest: Clear bilaterally. No increased work of breathing. Abdomen: Soft, nontender. LABORATORY: White count 8.7, hematocrit 32.1, platelet count 176,000. INR is 3.4. Sodium 140, potassium 4.1. proBNP is 2098. ASSESSMENT: Diastolic heart failure. PLAN: I will give her an 80 mg dose of IV Lasix today, change her over to oral in the morning, recheck BMP and a proBNP. I believe she is likely progressing towards discharge, potentially tomorrow or Tuesday. cc: Nirav Galdamez MD
--- NOTE | 2017-01-12 15:00 | PROGRESS NOTE ---
DATE: 01/12/2017 SUBJECTIVE: This patient feels better. She states that she is not able to sleep very good during the night because she is feels anxiety, I will start this patient with a low dose of Xanax and I will monitor that daily. OBJECTIVE: Vital Signs: Temperature 98.5 degrees, pulse 65, respiratory rate 19, blood pressure 133/57, oxygen saturation 95% on room air. HEENT: Head normocephalic. No trauma. PERRLA. Neck: Supple. Mild JVD. Central trachea. No masses. Chest: Rales at the bases. No wheezing. Abdomen: Soft, nontender, nondistended. No hepatosplenomegaly. Extremities: No edema. No clubbing. No cyanosis. Neurological: The patient is alert and oriented x3, anxiety, no focal deficits. LABORATORY: WBC 8.7, hemoglobin 10.1, hematocrit 32.1, platelets 176,000. Sodium 140, potassium 4.1, chloride 98, bicarbonate 30, BUN 41, creatinine 1.4, glucose 117, calcium 8.2. ASSESSMENT AND PLAN: 1. Diastolic heart failure exacerbation. Clinically she is getting better, the dose of Lasix and has been modified by Cardiology Department, we will continue to follow. She is not complaining of chest pain or shortness of breath. 2. Back pain secondary to L4 partial compression fracture. Continue with the same management. 3. Paroxysmal atrial fibrillation. Stable. Continue with warfarin. 4. Type 2 diabetes. Continue with the same management for now. This is controlled. 5. Hyperlipidemia. Continue with statins. 6. Hypertension. Stable. 7. Anxiety. I will start this patient on a low dose of Xanax 0.125 twice a day. cc: Guanaco Ambrocio MD
[2017-01-12] MEDS ORDERED: INSULIN PEN NEEDLES ONE (15:53)
[2017-01-12] MEDS: LANTUS SUBQ SCH (21:23)
[2017-01-12] MEDS: LIPITOR PO SCH (21:24)
[2017-01-12] MEDS: XANAX PO SCH (21:24)
[2017-01-13] MEDS: HUMALOG SUBQ SCH ×3 (06:43→13:52)
[2017-01-13] MEDS: SYNTHROID PO SCH (06:53)
[2017-01-13 07:41] LABS: CALCIUM 8.6 mg/dL (8.8-10.2); POTASSIUM 4.5 mmol/L (3.5-5.1)
[2017-01-13 07:51] LABS: INR 1.97; PROTIME 21.6 Seconds (9.2-11.7)
[2017-01-13] MEDS: TOPROL XL PO SCH (08:00)
[2017-01-13] MEDS: XANAX PO SCH (08:01)
[2017-01-13] MEDS: APRESOLINE PO SCH ×2 (08:01→14:00)
[2017-01-13] MEDS: PERCOCET-5 PO PRN (08:02)
[2017-01-13] MEDS: KLOR-CON PO SCH (08:03)
[2017-01-13] MEDS: VITAMIN D PO SCH (08:03)
[2017-01-13] MEDS: CORDARONE PO SCH (08:03)
[2017-01-13] MEDS ORDERED: LASIX PO SCH (09:00)
[2017-01-13] MEDS ORDERED: LASIX IV ONE (13:10)
--- NOTE | 2017-01-13 13:32 | PROGRESS NOTE ---
DATE: 01/13/2017 SUBJECTIVE: Ms. Sanchez reports she is breathing better today. She has no chest pain. PHYSICAL EXAMINATION: Vital signs: Afebrile, heart rate is 61, blood pressure 162/64. Her input and output total for the hospitalization have been negative 4.1 L. General: She is in no acute distress. Cardiovascular: Regular rate and rhythm. She has no murmurs. No S3. She has no lower extremity edema. Chest: Clear bilaterally. No increased work of breathing. Abdomen: Soft, nontender. Skin: Warm and dry throughout. PERTINENT DATA: Sodium is 139, potassium 4.5, BUN is 44, creatinine 1.3. ProBNP is 2576. ASSESSMENT: Diastolic heart failure. PLAN: I will give her 1 more dose of IV Lasix. I believe she is appropriate for discharge today. Her medications at home have been altered such that we placed her on Lasix instead of Bumex. I would put her on 40 mg p.o. b.i.d. of Lasix as opposed to Bumex. cc: Nirav Galdamez MD
[2017-01-13 15:43] VITALS: BP 163/65
--- NOTE | 2017-01-13 21:09 | DISCHARGE SUMMARY ---
ADMISSION DATE: 01/10/2017 DISCHARGE DATE: 01/13/2017 ADMISSION DIAGNOSES: 1. Heart failure with acute exacerbation with increased pulmonary vascular congestion. 2. Back pain secondary to L4 partial compression fracture. 3. Paroxysmal atrial fibrillation. 4. Hyperlipidemia. 5. Hypertension. 6. Diabetes type 2. FINAL DISCHARGE DIAGNOSES: 1. Diastolic heart failure with improvement. 2. Chronic back pain with L4 partial compression fracture. 3. Atrial fibrillation, stable. 4. Diabetes type 2, controlled. 5. Hyperlipidemia, stable. 6. Hypertension, stable. 7. Anxiety. CONSULTATIONS: Dr. Galdamez. HOSPITAL COURSE: Ms. Sanchez is an 86-year-old female who was recently seen here on 12/03/2016. She has a past medical history of diastolic heart failure, diabetes type 2, atrial fibrillation. On this admission on 01/10/2017, she presented to the ED with mild shortness of breath and complaints of lower extremity edema. She also stated she was having some back pain for which she was admitted back in November of this year for the L3-L4 compression fracture with no history of falls, and she was treated for that. Dr. Galdamez was consulted and evaluated the patient. He evaluated her on the day of admission. He chose to discontinue her diltiazem and started her on Toprol 50 mg daily with continuation of the IV diuretics that she was on. On 01/11/2017 Dr. Galdamez rounded and continued her IV Lasix 40 mg b.i.d. and repleted her potassium. Her potassium was 3.3 that day. On 01/12, the patient progressed, stating that her shortness of breath improved. Her proBNP had trended up. Last proBNP on 01/13/2017 was 2576. Previously on 01/12/2017 it was 2098. Vital signs: Temperature 97.9, afebrile, heart rate 61, respirations 12, blood pressure 162/64, oxygen 100% on 2 L nasal cannula. Pertinent labs last done on 01/12/2017: Hemoglobin 10.1, hematocrit 32, white cell count 8.7, platelets 176. Sodium 139, potassium 4.5, chloride 97, BUN 44, creatinine 1.3, glucose 105. As stated, proBNP was 2576 on 01/13/2017. IMAGIN. On 01/10/2017, chest x-ray revealed interstitial pulmonary edema with possible bronchiectasis. 2. 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 3. EKG on 01/10/2017 revealed sinus rhythm with PVCs, rate of 88, QTC 529. DISCHARGE MEDICATIONS: 1. Synthroid 50 mcg p.o. daily. 2. Lantus 35 minutes subcutaneously at night. 3. Lipitor 40 mg tablet p.o. at night. 4. Actos 30 mg tablet p.o. daily. 5. Robaxin 500 mg tablet p.o. b.i.d. p.r.n. 6. Diltiazem 240 mg p.o. daily. 7. Amiodarone 200 mg p.o. daily. 8. Hydralazine 25 mg p.o. t.i.d. 9. MiraLAX 17 g p.o. daily. 10.Coumadin 5 mg p.o. at night. 11.Vitamin D3 1000 units p.o. daily. 12.Tylenol 650 mg p.o. every 4 hours p.r.n. 13.Robaxin 200 mg p.o. p.r.n. 14.Milk of magnesia 30 mL p.o. daily p.r.n. 15.Potassium 20 mEq p.o. daily. 16.Xanax 0.125 mg p.o. b.i.d. 17.Lasix 40 mg p.o. b.i.d. 18.Toprol 50 mg p.o. daily. 19.Lantus 25 units subcutaneously at night. 20.Percocet 5 mg/325 mg 1 tablet p.o. every 8 hours p.r.n. DISCHARGE DIET: Heart Healthy. DISCHARGE ACTIVITY: As tolerated. DISPOSITION: The patient is to go home on home health. DISCHARGE INSTRUCTIONS: Follow up with Dr. Galdamez in 1 month. Dictated by YAAKOV Burr for Guanaco Ambrocio MD cc: YAAKOV Burr MD [facility]
== END 2017-01-13 16:27 | disposition home health service (06) ==
LOC: ED 00:13 → SUATTDRO 03:47 → 3N 03:47
PROVIDERS: ATTEND Internal Medicine

== ENCOUNTER 2017-02-25 11:24 | Inpatient (IN) ==
[2017-02-25] MEDS ORDERED: ASPIRIN PO STA (12:03)
--- NOTE | 2017-02-25 12:20 | Diag Imaging Result Doc PS360 ---
EXAM: CHEST-1 VIEW HISTORY: sob TECHNIQUE: AP sitting upright chest at 1215 COMMENT: There is continued opacification in the left lower lobe. This is actually worse than on 01/10/2017. The inspiration is not as optimal generally. There is more opacification in the right costophrenic angle. IMPRESSION: Pulmonary edema plus minus pneumonia left lower lobe. Electronically signed by Cecilio Gomez 02/25/2017 12:18 PM
[2017-02-25 12:28] LABS: MANUAL DIFF NEEDED? NO
[2017-02-25 12:35] LABS: BASO% 0.1 % (0.0-0.8); EOS# 0.18 X1000 (0.0-0.7); EOS% 2.1 % (0.0-10.0); HEMATOCRIT 38.4 % (37.0-47.0); HEMOGLOBIN 12.1 g/dL (12.0-16.0); LYMPH# 1.32 X1000 (1.2-3.4); LYMPH% 15.6 % (20.5-51.1); MCH 29.2 PG (27-31); MCHC 31.5 g/dL (33-37); MCV 92.8 FL (81-99); MONO# 0.66 X1000 (0.11-0.59); MONO% 7.8 % (1.7-9.3); MPV 11.8 FL (7.4-10.4); NEUT% 74.4 % (42.2-75.2); PLT 195 X1000 (130-400); RBC 4.14 XMIL (4.2-5.4)
[2017-02-25 12:40] LABS: INR 1.84; PROTIME 20.1 Seconds (9.2-11.7); PTT 37.6 Seconds (22.0-36.0)
[2017-02-25 12:47] LABS: URINE MICRO REVIEW NEEDED? NO; URINE SOURCE CLEAN CATCH
[2017-02-25 12:55] LABS: BILIRUBIN URINE NEGATIVE (NEGATIVE); BLOOD URINE NEGATIVE (NEGATIVE); COLOR YELLOW; GLUCOSE URINE NEGATIVE (NEGATIVE); LEUKOCYTES URINE SMALL (NEGATIVE); NITRITE URINE NEGATIVE (NEGATIVE); PROTEIN URINE 50 mg/dL (NEGATIVE); SP GRAVITY URINE 1.017; TURBIDITY URINE CLEAR (CLEAR); UROBILINOGEN URINE NORMAL (NORMAL)
[2017-02-25 12:58] LABS: UR EPITHELIAL CELLS <10 /HPF (<10); URINE BACTERIA NEGATIVE /HPF; URINE CULTURE NEEDED? YES; URINE RBC <10 /HPF (<10)
[2017-02-25 13:07] LABS: ALBUMIN 4.3 g/dL (3.5-5.0); MAGNESIUM 2.1 mg/dL (1.5-2.7); POTASSIUM 4.1 mmol/L (3.5-5.1); TOTAL BILIRUBIN 1.15 mg/dL (0.20-1.00)
[2017-02-25] MEDS ORDERED: LASIX IV ONE (13:18)
--- NOTE | 2017-02-25 13:25 | EKG Report ---
Test Performed on : 02/25/2017 11:28:52 AM Test Reason : Chest Pain Blood Pressure : / mmHG Vent. Rate : 060 BPM Atrial Rate : 060 BPM P-R Int : 224 ms QRS Dur : 100 ms QT Int : 462 ms P-R-T Axes : 043 010 013 degrees QTc Int : 462 ms Sinus rhythm. with 1st degree AV block. Nonspecific ST abnormality Abnormal ECG When compared with ECG of 10-JAN-2017 01:48, premature ventricular complexes. are no longer present QT has shortened Unconfirmed Result
--- NOTE | 2017-02-25 16:05 | PROVIDER DOCUMENTATION ---
This chart was entered by Sherron Castillo Scribe, acting as scribe for Alex Monzon MD. HPI-General Adult - General Chief Complaint: Shortness of Breath Stated Complaint: SOB Time Seen by Provider: 02/25/17 11:45 Source: patient Allergies/Adverse Reactions: Patient Allergies Allergy/AdvReac Type Severity Reaction Status Date / Time rosuvastatin calcium * AdvReac SWELLING Verified 02/25/17 11:57 [From Crestor] Home Medications: Home Medication List Medication Instructions Recorded Confirmed Last Taken Type ATORVAstatin [Lipitor] 40 mg PO QHS 06/11/13 02/25/17 02/24/17 17:00 History Pioglitazone [Actos] 1 tab PO DAILY 09/30/16 02/25/17 02/25/17 07:00 History Amiodarone [Cordarone] 200 mg PO DAILY #30 tablet 11/22/16 02/25/17 02/25/17 07: 00 Rx Warfarin [Coumadin] 5 mg PO QHS #10 tablet 12/07/16 02/25/17 02/24/17 17:00 Rx Levothyroxine Sodium [Synthroid] 50 microgm PO DAILY 01/10/17 02/25/17 02/25/17 07:00 History Potassium Chloride 20 meq PO DAILY 01/10/17 02/25/17 02/25/17 07:00 History Insulin Glargine [Lantus] 25 unit SUBQ QHS #2 insuln.pen 01/13/17 02/25/1702/23 17:00 Rx Metoprolol Succinate E.r. [Toprol 50 mg PO DAILY #90 tablet 01/13/17 02/25/17 07:00 Rx Xl] Clonazepam [Klonopin] 0.5 mg PO HS 02/25/17 02/25/17 02/24/17 20:00 History Diltiazem HCl [Cartia Xt] 240 mg PO QAM 02/25/17 02/25/17 02/25/17 07:00 History Furosemide [Lasix] 80 mg PO QAM 02/25/17 02/25/17 02/25/17 07:00 History Hydrocodone Bit/Acetaminophen 1 tab PO TID 02/25/17 02/25/17 02/25/17 07:00 History [Hydrocodon-Acetaminoph 7.5-325] Nitrofurantoin Monohyd/M-Cryst 100 mg PO BID 02/25/17 02/25/17 02/25/17 07:00 History [Macrobid 100 mg Capsule] - History of Present Illness -Gen Adult Nature of Presenting Problems: 86 y/o F presents to ED cc of SOB. Pt states having problems with her back that is not getting any better from an injury that occurred in November. Pt states she has had an increase of SOB x 2-3 days. States " i feel like i am smothering" . Pt denies having any fever/cough/ BERG/ ABD PAIN / CP. Pt is alert and oriented. Pt states the SOB has not improved. Location of Pain/Injury: reports: none Pain Radiation: reports: no radiation Quality of Pain: reports: none Onset/Duration: reports: 2 days ago, 3 days ago Timing: reports: still present Context/Activities at Onset: reports: light activity Associated Symptoms: reports: shortness of breath. denies: arm pain, chest pain , cough, diarrhea, fatigue, fever/chills, sinus congestion/drainage, nausea, syncope, vomiting, weakness Similar Symptoms Previously?: No Recently seen or treated by another doctor?: No Review of Systems - Adult - REVIEW OF SYSTEMS - ADULT Constitutional: denies: chills, fever Eyes: denies: blurred vision, double vision Ears, Nose, Mouth & Throat: denies: ear pain, throat pain Cardiovascular: denies: chest pain, palpitations Respiratory: reports: shortness of breath. denies: cough Gastrointestinal: denies: abdominal pain, diarrhea, nausea, vomiting Genitourinary: denies: discharge, frequency, hematuria, hesitency Musculoskeletal: reports: back pain. denies: bone pain, muscle aches, neck pain Neurological: denies: dizziness/vertigo, headache/migraines, numbness, slurred speech Past History - Adult - PAST MEDICAL HISTORY-ADULT Review of Records: reports: Old Records Reviewed, Nursing Assessment Review Major Childhood Illnesses: reports: denies history Cardiovascular: reports: A-Fib, CHF, HTN, hyperlipidemia Respiratory: reports: COPD Gastrointestinal: reports: denies history Obstetrical/Gynecological: reports: denies history Genitourinary: reports: denies history Musculoskeletal: reports: denies history Neurological: reports: dementia Psychiatric: reports: depression Endocrine/Immune: reports: Diabetes, thyroid disorder Other Conditions: reports: denies history - PRIOR SURGERIES/PROCEDURES Surgical/Procedure History: reports: cholecystectomy, hysterectomy, other ( catarct surgrey ) - IMMUNIZATION STATUS Childhood Immunizations: See Nurse Assessment Flu Vaccine: See Nurse Assessment - FAMILY HISTORY Family History: reviewed, not pertinent - SOCIAL HISTORY Smoking: denies, non-smoker Substance Use: none/never, denies Alcohol Use Frequency: never Physical Exam-General - PHYSICAL EXAM-ADULT Initial Vital Signs Reviewed: Yes - CONSTITUTIONAL General Appearance: appears well, alert, no apparent distress - EYES Eyes: PERRL/EOMI, pink conjunctivae - HEAD, EARS, NOSE, MOUTH & THROAT HENMT: normocephalic/atraumatic, moist mucous membranes, normal ENT inspection - NECK Neck: non-tender, full range of motion - RESPIRATORY Respiratory: chest non-tender, lungs clear, normal breath sounds - CARDIOVASCULAR Cardiovascular: normal peripheral pulses, regular rate, rhythm - GASTROINTESTINAL (ABDOMEN) Abdominal Exam: normal bowel sounds, non tender, soft. negative: rigid, rebound , tenderness - MUSCULOSKELETAL Back Exam: normal inspection, no CVA tenderness, no vertebral tenderness, ecchymosis (inferior scapula) Extremity: normal range of motion, non-tender - SKIN Integumentary: normal color, normal turgor, warm/dry - NEUROLOGIC Neurologic: laboratory secretary II-XII nml as tested, grossly normal, no motor/sensory deficits - PSYCHIATRIC Psych/Mental Status: oriented x 3 Progress - PLAN OF CARE/RESULTS Progress/Plan/Lab Results: Vital Signs - 8 hr 02/25/17 11:25 02/25/17 11:52 Temperature 97.9 F Pulse Rate 58 L 58 L Respiratory Rate 21 13 Blood Pressure 174/73 174/73 O2 Sat by Pulse Oximetry 97 97 PLAN: LABS , MONITOR PT Result Diagrams: 02/25/17 11:45 02/25/17 11:45 - REASSESSMENT Reassessment #1 Time Reassessed: 14:20 Status: unchanged (Pt reports going to the restroom a lot but stil feels like she is smothering. Pt is aware of results and being admitted.) - XRAY 1 XRAY: Bilateral XRAY Study: Chest XRAY Interpretation: pulmonary edema plus minus pneumonia left lower lobe. - Dr. Gomez(rad) - CONSULTS/PCP/HOSPITALIST Notification #1 *Consult/PCP/Hospitalist*: KRAIG Johnson- Dr. López(hospitalist) Time Discussed: 15:45 Consult Disposition: Admit Departure - Departure Date of Disposition Decision: 02/25/17 Time of Disposition Decision: 16:03 DIAGNOSIS: CHF (congestive heart failure) Qualifiers: Congestive heart failure type: unspecified congestive heart failure type Congestive heart failure chronicity: acute on chronic Qualified Code(s): I50.9 - Heart failure, unspecified Disposition: ADMITTED INPATIENT 09 Certified Medical Emergency: Urgent Condition: Good Referrals and Follow-Ups: Elo Moy MD [Primary Care Provider] - - Critical Care Note This patient required my direct & personal management of CC.: No Attestation - Physician/ MANISH Attestation Patient care was provided by Advanced Practice Provider:: No The physician spent face to face time with patient:: Yes (NO MANISH involvement) Advanced Practice Provider documentation review:: Supervising physician onsite and consulted in the evaluation and care of this patient. The physician did have a face to face encounter with the patient. This chart was documented by the indicated scribe, (Sherron Castillo Scribe) and accurately reflects the services I performed and decisions made by me, Alex Monzon MD, as attested by the provider's signature.
--- NOTE | 2017-02-25 17:51 | Diag Imaging Result Doc PS360 ---
EXAM: CT THORAX W/O CONTRAST HISTORY: ?Pna vs Pul Edema TECHNIQUE: CT of the chest without contrast with dose reduction (clarity.) COMMENT: There are nodules in the left thyroid lobe which are similar in appearance to those on 10/02/2016. There are bilateral pleural effusions. These are larger than they were on the previous study. There appears to be some pleural thickening or loculation anteriorly in the left base. There is a apparent mass arising from the posterior right upper renal pole which was also present on the previous study. The appearance of the mediastinum and oni has not changed significantly since the previous examination. There is patchy air trapping particularly in the right lower lobe and middle lobe. There are increased interstitial opacities in the lung bases which may be indicative of interstitial edema. There is compressive atelectasis in the left lower lobe and to a lesser extent in the medial portion of the right lower lobe. There is a pleural-based somewhat irregular opacity in the medial posterior costophrenic sulcus of the right lower lobe which has enlarged slightly since the previous study measuring 1.9 cm in AP dimension compared to 9 mm at the time the previous study. This may be due to pneumonia or atelectasis however the possibility of neoplastic disease cannot be excluded. There is a somewhat spiculated nodule in the left lower lobe seen on image 70 which measures 17 mm in AP dimension. Previously this measured almost 18 mm. IMPRESSION: Enlarging pleural effusions. Interstitial pulmonary edema. Atelectasis versus pneumonia in the lung bases. Questionable masslike opacities in both lower lobes. Electronically signed by Cecilio Gomez 02/25/2017 5:48 PM
[2017-02-25] MEDS ORDERED: APRESOLINE IV PRN (18:32)
--- NOTE | 2017-02-25 18:33 | HISTORY AND PHYSICAL ---
PCP: Dr. Moy. WEB ARCHITECT: Dr. Nirav Galdamez. CHIEF COMPLAINT: Shortness of breath. HISTORY OF PRESENT ILLNESS: Mrs. Sanchez is an 86-year-old female well known to our service with a history of diastolic heart failure, diabetes mellitus, PAF, L3- L4 compression fracture, anxiety and depression. She reports shortness of breath over the past few days. This has mainly been at night when she is getting ready for bed. After talking to Mrs. Sanchez for some time, she revealed to us that since her last year she has been quite depressed and at night is when she becomes most anxious and become short of breath. She denies any shortness of breath with exertion. No chest pain. No lower extremity edema. No increasing abdominal girth, she does perhaps relate some possible orthopnea but lays mostly in her side. She denies any PND, fever or chills. She denies any abdominal pain, nausea, vomiting, or diarrhea. She came to the ER today. Labs and diagnostics were done which showed an elevated proBNP of 2164 and a creatinine of 1.2. Chest x-ray shows pulmonary edema plus or minus pneumonia in the left lower lobe. Her EKG reveals sinus rhythm with first-degree AV block. No real acute ST or T abnormalities. She was given 100 mg of IV Lasix in the ER and has been diuresing quite a bit since that time however she still remains somewhat short of breath. She also related to the us that she really does not want to go back home as it continues to remind her of her , she became quite tearful and reported that she cannot take care of herself anymore and that she mixes up her medications. She is now going to be admitted for further treatment and evaluation. PAST MEDICAL HISTORY: 1. Diastolic heart failure. 2. PAF. 3. Anxiety and depression. 4. Diabetes mellitus. 5. Hypothyroidism. 6. Hyperlipidemia. SOCIAL HISTORY: Patient is . She currently lives at home with very mild family support. She denies tobacco, alcohol or drug use. FAMILY HISTORY: Noncontributory. REVIEW OF SYSTEMS: 14 point review of systems was obtained and found to be negative with exception of the HPI. ALLERGIES: Crestor. HOME MEDICATIONS: Amiodarone 200 mg daily, Lipitor 40 mg at bedtime, Klonopin 0.5 mg p.o. at bedtime, Cartia XT 240 mg p.o. a.m., Lasix 80 mg a.m., [employer] 7.5 as needed, Lantus 25 units at bedtime, Synthroid 50 mcg daily, Toprol-XL 50 mg daily, Macrobid 100 mg b.i.d., Actos 30 mg daily, KCl 20 mEq p.o. daily, Coumadin 5 mg at bedtime. PHYSICAL EXAMINATION: VITAL SIGNS: Blood pressure is 191/84, heart rate 63, respiratory rate is 21, O2 saturation is 96% on 2 L, temperature is 97.9 degrees. GENERAL: This is an elderly female lying in hospital bed somewhat tearful and distraught but in no acute distress. NEUROLOGIC: She is awake and oriented. Follows commands without focal deficits. PSYCHIATRIC: The patient is tearful with flat affect. She denies any homicide or suicidal ideations. HEENT: Head atraumatic and normocephalic. Her pupils are equal, round and reactive to light. Oral mucosa is moist. Trachea is midline. There is no JVD. CHEST: Crackles in the left lung base. CV: Regular rate and rhythm. S1-S2 is noted. GI: Soft, nondistended, nontender, bowel sounds positive. EXTREMITIES: Trace edema, diminished pulses. No cyanosis or clubbing. DIAGNOSTIC DATA: Chest x-ray, pulmonary edema plus or minus left lower lobe pneumonia. EKG sinus rhythm without acute ST or T abnormalities. Lab work. WBC 8.44, hemoglobin 12.1, hematocrit 38.4, platelet count 195,000, INR 1.84, D-dimer 0.24, sodium 139, potassium 4.1 , chloride 99, CO2 20, anion gap 20, BUN 23, creatinine 1.2, glucose 235, calcium 9, bilirubin 1.15, AST 18, ALT 19, alkaline phosphatase 110, troponin negative, pro B 2164, albumin 4.3. UA is negative for UTI. ASSESSMENT AND PLAN: 1. Dyspnea: She does have some mild radiographic evidence of congestive heart failure however she also has fairly significant symptoms of anxiety when reminded of her 's . She does not have any shortness of breath with exertion. She does not have any lower extremity edema so would be pretty tough to really pin her down as heart failure however could certainly be a mixed picture. Given the question of pneumonia in the lung we are going to do a CT of the chest without contrast, consider pulmonary consultation if any significant abnormalities are noted. Will also ask cardiology to follow. 2. Diastolic heart failure: As above, continue diuresis, follow strict I's and Os and daily weights, continue her home medications. 3. Home self-care deficit: We are going to consult social work and physical therapy, she will likely need mcc placement. 4. Diabetes mellitus type 2. Will start sliding scale insulin. 5. Hypertension: Chronic and stable, continue home medications, add IV hydralazine if needed. 6. Renal insufficiency: Stable. Monitor closely while on diuretic therapy. 7. Paroxysmal atrial fibrillation: Currently sinus, continue home medications including Coumadin, she is slightly subtherapeutic so will monitor her INRs on a daily basis and titrate as necessary. 8. Deep vein thrombosis prophylaxis provided with home Coumadin, further recommendations to follow. Dictated by YAAKOV Abraham for Ana López MD cc: MD Ana Ko MD The patient was seen and examined by me. I agree with the assessment and plan as dictated. All imaging and laboratory studies were reviewed. The plan of care was discussed with the patient at the bedside. KRISTIAN
[2017-02-25] MEDS: DUONEB (A & A) INH SCH ×2 (18:58→22:48)
[2017-02-25] MEDS: NORCO-7.5 PO PRN (19:02)
[2017-02-25] MEDS ORDERED: INSULIN PEN NEEDLES ONE (22:11)
[2017-02-25] MEDS: COUMADIN PO SCH (22:19)
[2017-02-25] MEDS: LIPITOR PO SCH (22:19)
[2017-02-25] MEDS: HUMALOG SUBQ SCH (22:19)
[2017-02-25] MEDS: KLONOPIN PO SCH (22:19)
[2017-02-25] MEDS: MERREM 500 MG in NS 50 ML IV SCH (22:19)
[2017-02-25] MEDS: LANTUS SUBQ SCH (22:29)
[2017-02-26] MEDS: DUONEB (A & A) INH SCH ×6 (03:41→22:58)
[2017-02-26] MEDS: MERREM 500 MG in NS 50 ML IV SCH ×3 (05:19→21:13)
[2017-02-26] MEDS: SYNTHROID PO SCH (07:01)
[2017-02-26] MEDS: HUMALOG SUBQ SCH ×4 (07:02→21:07)
--- NOTE | 2017-02-26 07:18 | Diag Imaging Result Doc PS360 ---
EXAM: CHEST-PORTABLE HISTORY: pulmonary edema TECHNIQUE: AP portable at 0500 COMMENT: There is opacification in the left lower lobe. There is interstitial pulmonary edema. There appears to be slightly less pleural fluid on the right. Otherwise there is been no appreciable change since 02/25/2017. IMPRESSION: Mild pulmonary edema with left lower lobe atelectasis versus pneumonia. Electronically signed by Cecilio Gomez 02/26/2017 7:16 AM
[2017-02-26 07:25] LABS: HEMATOCRIT 35.2 % (37.0-47.0); HEMOGLOBIN 11.1 g/dL (12.0-16.0); MCH 28.9 PG (27-31); MCHC 31.5 g/dL (33-37); MCV 91.7 FL (81-99); MPV 11.6 FL (7.4-10.4); RBC 3.84 XMIL (4.2-5.4)
[2017-02-26 07:31] LABS: INR 1.64; PROTIME 17.8 Seconds (9.2-11.7)
[2017-02-26 07:53] LABS: CALCIUM 9.1 mg/dL (8.8-10.2); POTASSIUM 3.7 mmol/L (3.5-5.1)
[2017-02-26 07:55] LABS: MAGNESIUM 2.1 mg/dL (1.5-2.7)
[2017-02-26] MEDS ORDERED: NORCO-7.5 PO SCH (09:00)
[2017-02-26] MEDS: CORDARONE PO SCH (09:49)
[2017-02-26] MEDS: LASIX IV SCH ×2 (09:49→21:08)
[2017-02-26] MEDS: TOPROL XL PO SCH (09:49)
[2017-02-26] MEDS: CARDIZEM CD PO SCH (09:49)
[2017-02-26] MEDS: ASPIRIN EC PO SCH (09:49)
[2017-02-26] MEDS: NORCO-7.5 PO PRN ×2 (09:55→21:03)
[2017-02-26] MEDS: ZITHROMAX 500 MG/NS 500 MG/250 ML IVPB IV SCH (09:56)
--- NOTE | 2017-02-26 12:08 | CONSULTATION ---
DATE OF CONSULTATION: 02/26/2017 REQUESTING PHYSICIAN: Hospitalist Service. PRIMARY TIMBER POISONER: Sherri Gallegos MD. REASON FOR CONSULTATION: Evaluation of dyspnea. HISTORY: Ms. Sanchez is an 86-year-old female who is [facility]. She has presented previously with recurrent dyspnea and irregular heartbeats. She was admitted 4 times, first in September 2016 with bronchitis and possible CHF, again on 11/17/2016 with chest pain, subsequently on 12/03/2016 with lower back pain, and then on 01/10/2017 with pulmonary edema. The patient was evaluated by Dr. Alejandro and Dr. Galdamez. During her admission in September 2016, they did an echocardiogram that showed preserved ejection fraction. At some point, they had done a cardioversion on her for management of atrial fibrillation. The last time she was seen by our team was Dr. Nirav Galdamez on 01/10/2017 and he saw her through 01/13/2017 with diagnosis of diastolic heart failure. She improved. She went home. However, she has complained of recurrent back pain due to an orthopedic issue with her lumbar spine. 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 At any rate, over the course of the three days prior to this admission, she felt progressively more short of breath and she had some swelling of her legs. She presented to the ER and they did blood work, which showed that her proBNP was elevated at 2164. A chest x-ray was done, which showed pulmonary edema +/- pneumonia. A chest CT was also done that showed enlarging pleural effusions, interstitial pulmonary edema, atelectasis versus pneumonia, questionable mass-like opacities in both lower lobes. The patient has been given Lasix. She has diuresed some and she is feeling a little better. Subsequent chest x-ray done this morning shows mild pulmonary edema with left lower lobe atelectasis. Her BUN is 23 and creatinine is 1.1. She denies having any chest pain, dizziness, or palpitations at this time. Her EKG on presentation at 11:26 a.m. on 02/25/2017 showed sinus rhythm, 1st-degree AV block. Subsequent EKG at 11:28 showed also sinus rhythm with 1st-degree AV block, and the one done at 6:36 this morning showed sinus bradycardia with 1st-degree AV block, no significant ischemic changes. Troponin levels have been checked a total of 3 times and they are negative. CPKs are normal. PAST HISTORY: Positive for arrhythmia, atrial flutter. She had ablation of atrial flutter in the past. She has had paroxysmal atrial fibrillation requiring cardioversion. She has diabetes mellitus, type 2, hypothyroidism, and hyperlipidemia. She has had diastolic heart failure. She still follows with Dr. Brandi Gallegos. She saw him in [place] in August of this year and she has an upcoming appointment with him probably next month. Her surgical history includes cholecystectomy, hysterectomy, and cataract surgery. SOCIAL HISTORY: She has become a . She has no children. She lives by herself. She has nieces who somehow help her. She has been very limited at home by the back pain. She can barely take care of herself. REVIEW OF SYSTEMS: Chronically fatigued. Denied having chest pain. She has had occasional palpitations. She has had some issues with cough and shortness of breath. She does have some questionable COPD in the past. She does have diabetes and she is taking medicine for it. She has also been taking medicine for thyroid. She has a good appetite. No diarrhea. No constipation. She has no skin rashes. She does have some excessive sweating. She has significant pain in the hips and back. She has some mild depression. She has no easy bruising. No hearing or visual problems. HOME MEDICINES: 1. Warfarin 5 mg at bedtime. 2. Potassium chloride 20 mEq daily. 3. Actos 1 tablet daily. 4. Nitrofurantoin 100 twice a day. 5. Metoprolol XL 50 daily. 6. Levothyroxine, Synthroid 50 mcg daily. 7. Insulin Lantus 25 units at bedtime. 8. Furosemide 80 mg in the morning. 9. Diltiazem 240 daily. 10.Clonazepam 0.5 mg at bedtime. 11.Amiodarone 200 daily. 12.Atorvastatin 40 mg at bedtime. PHYSICAL EXAMINATION: VITAL SIGNS: Blood pressure is 151/55, temperature 97.8, pulse 61, respirations 20. GENERAL: She is awake, alert, and oriented, in no distress. HEENT: Unremarkable. CHEST: Clear to auscultation and percussion. Decreased breath sounds in the left lung. HEART: Sounds are regular and rhythmic. I do not her any gallop or murmur. ABDOMEN: Obese and nontender. No masses. No hepatomegaly. EXTREMITIES: Showed fairly good pulses. No edema. NEUROLOGIC: Follows commands. Moves all 4 extremities. Cranial nerves normal. LABORATORY AND IMAGING: Sodium 139, potassium 3.7, chloride 100, CO2 of 27. PT/INR 17.8 and 1.64. Hemoglobin is 11.1, hematocrit 35.2. IMPRESSIONS: 1. Patient who presented with increasing dyspnea, swelling, and elevated proBNP. She is likely to have decompensation of chronic diastolic congestive heart failure. 2. History of paroxysmal atrial fibrillation, status post cardioversion, status post ablation of atrial flutter. 3. History of hypertension. 4. History of diabetes mellitus, type 2. 5. Hyperlipidemia. RECOMMENDATIONS: 1. At this point in time, I would suggest to continue present medical therapy with Lasix to optimize her fluid status. Because of the presence of bilateral pleural effusions and inadequate potassium level with normal CO2 on her blood work, I would probably add spironolactone, watching her potassium closely, and see if that helps to optimize her diastolic heart failure. Further advice will be forthcoming. 2. I would strongly recommend that Actos or pioglitazone be removed from her medication list because that drug has been associated with worsening heart failure in multiple observational studies. Thank you for the opportunity to participate in her evaluation. cc: Jacek Luna MD
--- NOTE | 2017-02-26 14:56 | PROGRESS NOTE ---
DATE: 02/26/2017 SUBJECTIVE: The patient is resting comfortably in bed. She states that she feels a lot better today. She was up walking with Physical Therapy this afternoon. OBJECTIVE: Vital Signs: Temperature 98.2 degrees, blood pressure 151/55, heart rate 56, respirations 20, O2 saturations 95% on 2 L nasal cannula. General: This is a chronically ill- appearing elderly female lying in bed in no acute distress. Head: Normocephalic, atraumatic. Heart: S1, S2. Normal. Lungs: Equal air entry bilaterally, no crackles, no wheezing. Abdomen: Positive bowel sounds. Soft, nontender, nondistended. Extremities: +1 edema. No cyanosis. No calf tenderness. Neuro: The patient is alert and oriented x3. LABS: White blood cell count 7, hemoglobin 11, hematocrit 35, platelets 193,000, INR 1.64. Sodium 139, potassium 3.7, chloride 100, CO2 27, BUN 23, creatinine 1.1, glucose 123, calcium 9.1, phosphorus 3.6, magnesium 2.1, ProBNP 2518. Troponin less than 0.01. CK 31. ASSESSMENT AND PLAN: 1. Acute on chronic diastolic congestive heart failure exacerbation. Will continue with diuretic therapy. Will monitor the patient's I's and O's and his daily weights. Cardiology is following. 2. Pneumonia. Will continue on Merrem. Azithromycin was added by the snack stewardess. Will continue with bronchodilator therapy. 3. Chronic kidney disease. Stable. Will monitor this closely while the patient is receiving diuretic therapy. 4. Situational depression. Aware. 5. Paroxysmal atrial fibrillation. The patient is currently rate controlled. Continue on Cardizem CD and warfarin. 6. Dyslipidemia. Continue on Lipitor. 7. Diabetes mellitus type 2. Continue on Lantus plus sliding scale insulin. 8. Hypothyroidism. Continue on Synthroid. 9. Deep vein thrombosis prophylaxis. The patient is on Coumadin. 10. Continue with physical therapy. cc: Ana López MD
[2017-02-26] MEDS: MUCOMYST 20% INH SCH (19:10)
[2017-02-26] MEDS: KLONOPIN PO SCH (21:04)
[2017-02-26] MEDS: LIPITOR PO SCH (21:04)
[2017-02-26] MEDS: COUMADIN PO SCH (21:04)
[2017-02-26] MEDS: LANTUS SUBQ SCH (21:14)
[2017-02-27] MEDS: DUONEB (A & A) INH SCH ×5 (03:42→19:26)
[2017-02-27] MEDS: MERREM 500 MG in NS 50 ML IV SCH ×2 (05:11→14:54)
[2017-02-27 05:15] LABS: ALLEN TEST YES; BE 3.1 mmoll (-3.0-3.0); BLOOD TYPE ARTERIAL; DRAW SITE R RADIAL; METHB 1.2 % (0.0-1.5); O2(CT) 19.1 mL/dL (15.0-23.0); PCO2(98.6) 45 mmHg (35-45); PO2(98.6) 56 mmHg (60-100); SAMPLE BLOOD; SAO2 92.4 % (95.0-100.0); THB 15.2 g/dL (11.5-17.4); pH(98.6) 7.41 (7.35-7.45)
[2017-02-27] MEDS: NORCO-7.5 PO PRN ×2 (05:18→18:00)
[2017-02-27] MEDS: SYNTHROID PO SCH (06:13)
[2017-02-27] MEDS: HUMALOG SUBQ SCH ×3 (06:13→16:21)
[2017-02-27 06:53] LABS: HEMOGLOBIN 10.7 g/dL (12.0-16.0); MCH 29.4 PG (27-31); MCHC 31.5 g/dL (33-37); MCV 93.4 FL (81-99); MPV 11.9 FL (7.4-10.4); RBC 3.64 XMIL (4.2-5.4)
[2017-02-27 07:00] LABS: INR 1.58; PROTIME 17.1 Seconds (9.2-11.7)
[2017-02-27 07:22] LABS: CALCIUM 8.4 mg/dL (8.8-10.2); POTASSIUM 3.7 mmol/L (3.5-5.1)
[2017-02-27] MEDS: MUCOMYST 20% INH SCH ×2 (08:26→19:26)
[2017-02-27] MEDS: LASIX IV SCH (10:24)
[2017-02-27] MEDS: TOPROL XL PO SCH (10:24)
[2017-02-27] MEDS: CARDIZEM CD PO SCH (10:24)
[2017-02-27] MEDS: CORDARONE PO SCH (10:25)
[2017-02-27] MEDS: ASPIRIN EC PO SCH (10:25)
[2017-02-27] MEDS: ZITHROMAX 500 MG/NS 500 MG/250 ML IVPB IV SCH (10:28)
--- NOTE | 2017-02-27 12:01 | PROGRESS NOTE ---
DATE: 02/27/2017 CHIEF COMPLAINT: Swelling, shortness of breath. SUBJECTIVE: Ms. Sanchez is feeling much better today. She was able to sleep well last night. She said that the pain medicine and anxiety medicine worked really well. She feels more relieved. Her swelling has gone down. Her breathing is more normal. She is not having any pain. OBJECTIVE: Blood pressure is 151/62, pulse 68, respirations 18, temperature 97.8. She is awake, alert and oriented, no distress. HEENT: No jugular venous distention. Chest sounds fairly clear to auscultation and percussion today. Heart sounds are regular and rhythmic. I do not hear any gallop or murmur. Abdomen is obese, nontender. There is no hepatomegaly. Extremities showed no edema. She has good distal pulses. Neurologic: She follows commands, moves all 4 extremities. DIAGNOSTIC DATA: Hemoglobin is 10.7, platelet count is 181,000. INR is 1.58. Blood gases showed pH of 7.4, pO2 of 56, pCO2 of 45. This is on room air. Sodium is 143, potassium 3.7, BUN is 27, creatinine 1.1, magnesium 1.9. The chest x-ray was done yesterday, and it was reported by Dr. Gomez as mild pulmonary edema with left lower lobe atelectasis. Telemetry shows sinus rhythm. IMPRESSION: 1. The patient is presenting with evidence of congestive heart failure and diastolic dysfunction. 2. History of paroxysmal atrial fibrillation. 3. History of previously ablated atrial flutter. 4. Hypertension. 5. History of obesity. RECOMMENDATIONS: At this point in time, I would probably continue the same diuretic regimen. I would continue anticoagulation with Warfarin. I would probably keep her on Cardizem and metoprolol. We will be happy to see her down the road. The patient states that she is an established patient of Dr. Sherri Gallegos, and she is planning on following up with him. Regarding her back pain, she has an appointment scheduled with Dr. Oneal Covarrubias for evaluation of possible back surgery in the future. The patient is to follow up with Dr. Sherri Gallegos upon discharge. cc: Jacek Luna MD
[2017-02-27] MEDS ORDERED: DULCOLAX PR ONE (12:17)
--- NOTE | 2017-02-27 15:54 | CONSULTATION ---
DATE OF CONSULTATION: 02/27/2017 CHIEF COMPLAINT: Shortness of breath. HISTORY OF PRESENT ILLNESS: This is an 86-year-old, female who has a complaint of shortness of breath which started few days ago. She states that her cough is worse at night, productive, thick and yellow in color. PAST MEDICAL and surgical HISTORY: Diabetes mellitus, hypothyroidism, hyperlipidemia, anxiety and depression, PAF and diastolic heart failure. SOCIAL HISTORY: She denies tobacco, alcohol and illicit drug use. She is . FAMILY HISTORY: Noncontributory. REVIEW OF SYSTEMS: A 10-point review of systems was obtained and the pertinent is listed within the HPI. Otherwise, noncontributory. ALLERGIES: Crestor. HOME MEDICATIONS: Coumadin 5 mg p.o. at bedtime. Potassium 20 mEq p.o. daily. Actos 30 mg daily. Macrobid 100 mg b.i.d. Toprol-XL 50 mg daily. Synthroid 50 mg daily. Lantus 20 units at bedtime. [place] 7.5 as needed. Lasix 80 mg every a.m. Cardia XT 240 mg p.o. every a.m. Klonopin 0.5 mg p.o. at bedtime. Lipitor 40 mg at bedtime. Amiodarone 200 mg p.o. daily. PHYSICAL EXAMINATION: Vital Signs: Temperature 97.9, respiratory rate 18, pulse rate 68, blood pressure 151/62, oxygen 97% per nasal cannula at 2 L/min. General: This is an 86-year-old female appearing weak, in no distress. HEENT: Head is atraumatic, normocephalic. Neck is supple. Eyes: Pupils equal, round, reactive to light and accommodation. Oral mucosa pink and moist. Cardiac: S1 and S2 noted. Regular rate and rhythm. Gastrointestinal: Abdomen soft, nondistended, nontender. Bowel sounds present. Extremities: Diminished pulses bilaterally. No cyanosis or clubbing. Trace amount of edema. DIAGNOSTIC DATA: Chest x-ray: Impression, mild pulmonary edema with left lower lobe atelectasis versus pneumonia. Chest CT noted on 02/25/2017: Impression, enlarging pleural effusions, interstitial pulmonary edema. Atelectasis versus pneumonia in the lung bases. Questionable masslike opacities in both lower lobes. Laboratory Data: White blood cells 5.78, red blood cells 3.64, hemoglobin 10.7, hematocrit 34.1 mg. MCHC 31.5, RDW of 17.6, MCV 11.9, PT 7.1, INR 1.58. Blood gas: PH 7.41, pCO2 45, PO2 56, HCO3 27.1, base excess 3.1, oxyhemoglobin 89.4. ASSESSMENT AND PLAN: 1. Left lower lobe atelectasis versus pneumonia. Continue bronchodilators and antibiotics as prescribed. Added CPT, incentive spirometry and mucomyst, will follow CXRs and if needed ABGs. 2. Dyspnea. Continue O2 therapy and bronchodilators. 3. Hypertension. I agree with current treatment regimen. 4. Renal insufficiency. Monitor closely. Patient currently receiving diuretic therapy. 5. Management otherwise per other teams on the case 6. Continue DVT prophylaxis with Coumadin 5 mg p.o. daily. Thank you for the courtesy of this consult. Dictated by YAAKOV Kruse for David Ceja MD cc: YAAKOV Kruse MD [facility]
--- NOTE | 2017-02-27 17:10 | PROGRESS NOTE ---
DATE: 02/25/2017 SUBJECTIVE: The patient is resting comfortably in bed. She has no complaints. She states that her shortness of breath has improved and the edema in her legs has improved as well. OBJECTIVE: Vital Signs: Temperature 98.3 degrees, blood pressure 152/56, heart rate 62 respirations 18, O2 saturations 97% on 2 L nasal cannula. General: This is an elderly chronically ill-appearing lying in bed, in no acute distress. Head normocephalic atraumatic. Heart: S1, S2 normal. Lungs: Equal air entry bilaterally, no crackles no rales. Abdomen: Positive bowel sounds. Soft, nontender, nondistended. Extremities: No edema. No cyanosis. No calf tenderness. Neurologic: The patient is alert and oriented x 3. LABS: White blood cell count 5.7, hemoglobin 10, hematocrit 34, platelets 181,000, INR 1.5. Sodium 143, potassium 3.7, chloride 100, CO2 27, BUN 27, creatinine 1.1, glucose 194, magnesium 1.9, calcium 8.4. ASSESSMENT AND PLAN: 1. Acute on chronic diastolic congestive heart failure exacerbation, improving. Continue on IV Lasix. We will continue to monitor the patient's volume status closely. Cardiology is following. 2. Paroxysmal atrial fibrillation. The patient is rate controlled. Continue on Cardizem CD and warfarin. 3. Pneumonia. Continue on IV antibiotic therapy plus bronchodilator therapy. Pulmonary is following. 4. Chronic kidney disease, stable. 5. Situational depression, aware. 6. Diabetes mellitus type 2. Continue on Lantus with sliding scale insulin. 7. Hypothyroidism. Continue on Synthroid. 8. Deep vein thrombosis prophylaxis. The patient is on Coumadin. 9. Continue with physical therapy. 10. Disposition. The patient states that she is interested in being sent to rehab upon discharge. dietary services director has been consulted. cc: Ana López MD
[2017-02-27] MEDS: KLONOPIN PO SCH (17:59)
[2017-02-28] MEDS: MIRALAX PO SCH ×2 (01:50→08:36)
[2017-02-28] MEDS: COUMADIN PO SCH (01:51)
[2017-02-28] MEDS: LIPITOR PO SCH (01:51)
[2017-02-28] MEDS: NORCO-7.5 PO PRN ×2 (01:52→14:43)
[2017-02-28] MEDS: LASIX IV SCH ×2 (01:56→08:36)
[2017-02-28] MEDS: LANTUS SUBQ SCH (01:57)
[2017-02-28] MEDS: HUMALOG SUBQ SCH ×2 (01:58→06:52)
[2017-02-28] MEDS: MERREM 500 MG in NS 50 ML IV SCH (02:12)
[2017-02-28] MEDS: KLONOPIN PO SCH (02:43)
[2017-02-28 06:14] LABS: MODALITY ROOM AIR
--- NOTE | 2017-02-28 06:27 | EKG Report ---
Test Performed on : 02/26/2017 06:36:24 AM Test Reason : chest pain Blood Pressure : / mmHG Vent. Rate : 058 BPM Atrial Rate : 058 BPM P-R Int : 212 ms QRS Dur : 098 ms QT Int : 494 ms P-R-T Axes : 060 -23 -04 degrees QTc Int : 484 ms Sinus bradycardia. with 1st degree AV block. Nonspecific ST abnormality Leftward axis noted Abnormal ECG When compared with ECG of 25-FEB-2017 11:28, (Unconfirmed) ST segment is now (non-specifically) inferior lead III Confirmed by Brandon Galdamez DO ([id number]) on 03/01/2017 7:18:05 AM
[2017-02-28] MEDS: DUONEB (A & A) INH SCH ×4 (06:32→15:33)
[2017-02-28] MEDS: SYNTHROID PO SCH (06:48)
[2017-02-28 07:22] LABS: HEMATOCRIT 34.7 % (37.0-47.0); HEMOGLOBIN 11.1 g/dL (12.0-16.0); MCH 29.6 PG (27-31); MCV 92.5 FL (81-99); MPV 11.8 FL (7.4-10.4); RBC 3.75 XMIL (4.2-5.4)
[2017-02-28 07:28] LABS: INR 1.63; PROTIME 17.7 Seconds (9.2-11.7)
[2017-02-28 07:39] LABS: CALCIUM 8.4 mg/dL (8.8-10.2); POTASSIUM 3.5 mmol/L (3.5-5.1)
[2017-02-28] MEDS: MUCOMYST 20% INH SCH (08:08)
[2017-02-28] MEDS: TOPROL XL PO SCH (08:36)
[2017-02-28] MEDS: CARDIZEM CD PO SCH (08:36)
[2017-02-28] MEDS: ASPIRIN EC PO SCH (08:36)
[2017-02-28] MEDS: CORDARONE PO SCH (08:36)
--- NOTE | 2017-02-28 08:47 | Diag Imaging Result Doc PS360 ---
EXAM: CHEST-1 VIEW HISTORY: SOB TECHNIQUE: Portable upright COMPARISON: 02/26/2017 FINDINGS: There are dense infiltrates in the lower left lung with atelectasis and a small effusion. The heart is not enlarged. No right-sided pleural effusion. Increased markings in the medial right base persists. The overall appearance is similar to that of the prior exam. IMPRESSION: Stable chest. No interval improvement. Electronically signed by Rubén Harper 02/28/2017 8:45 AM
--- NOTE | 2017-02-28 09:05 | PROGRESS NOTE ---
DATE: 02/28/2017 CHIEF COMPLAINT: Shortness of breath. SUBJECTIVE: The patient is feeling much better. Her back pain is improved. Her breathlessness is improved. She is not having any chest pain. OBJECTIVE: Blood pressure is 151/65, temperature 98 degrees, pulse 62, respirations 18. She is awake, alert. She is taking a breathing treatment. HEENT is unremarkable. Chest sounds very clear to auscultation and percussion. Heart sounds are regular and rhythmic. I do not hear any gallop or murmur. Abdomen is nontender, obese. No hepatomegaly. Extremities showed trace edema. Neurologic: Moves all 4 extremities. Cranial nerves are normal. Conversant. Alert and oriented x3. DIAGNOSTIC DATA: Hemoglobin is 11.1, hematocrit 34.7, platelet count is 207,000 , white count 5190. INR is 1.6. Sodium is 143, potassium 3.5, BUN is 26, creatinine 1.1, magnesium 1.8. IMPRESSION: 1. The patient presented with congestive heart failure, diastolic dysfunction, acute on chronic. 2. History of previous atrial flutter ablation and recent paroxysmal atrial fibrillation, status post cardioversion. 3. History of hypertension. 4. Obesity. 5. Diabetes mellitus type 2. RECOMMENDATIONS: At this point in time, I would suggest to continue present therapy. The patient has clinically improved. She is almost back to her baseline. From a cardiology viewpoint, she is probably very close to being discharged, and I do not have any further suggestions. The patient normally follows with Dr. Sherri Gallegos, and I have encouraged her to follow up with him as she has been doing. We would be very happy to see her in the hospital if she gets readmitted down the road; however, her primary currency machine operator is Dr. Gallegos. cc: Jacek Luna MD [facility]
[2017-02-28 09:32] VITALS: BP 151/58
[2017-02-28] MEDS: ZITHROMAX 500 MG/NS 500 MG/250 ML IVPB IV SCH (11:48)
--- NOTE | 2017-02-28 19:40 | DISCHARGE SUMMARY ---
ADMISSION DATE: 02/25/2017 DISCHARGE DATE: 02/28/2017 CONSULTATIONS: Dr. Luna, Dr. Ceja of pulmonology. PERTINENT PROCEDURES: Chest CT showed enlarging pleural effusions, interstitial pulmonary edema, atelectasis versus pneumonia. Questionable masslike opacities in both lower lobes. DISCHARGE DIAGNOSES: 1. Acute on chronic diastolic congestive heart failure exacerbation, improved. 2. Paroxysmal atrial fibrillation, rate controlled. Continue Cardizem and warfarin. 3. Pneumonia. Continue p.o. antibiotics. 4. Chronic kidney disease, stable. 5. Situational depression, aware. 6. Diabetes mellitus type 2. Continue with Lantus. 7. Hypothyroidism. Continue Synthroid. HOSPITAL COURSE: Ms. Sanchez is an 86-year-old female, well known to our service with a history of diastolic heart failure, diabetes mellitus, PAF L3-L4 compression fracture, anxiety and depression. Reported shortness of breath for the past few days. This has been mainly at night when she is getting ready for bed. Ms. Sanchez revealed since her last year, she had been quite depressed and at night she becomes most anxious and gets short of breath. She did have an elevated proBNP at 2164 and a creatinine of 1.2. Chest x-ray showed pulmonary edema plus or minus pneumonia of the left lower lobe. EKG revealed sinus rhythm with a first- degree AV block. She was given 100 of Lasix in the ED. She had been diuresing quite a bit, but still however was having some shortness of breath. She was admitted for diastolic heart failure and continued to diuresis and follow with strict I's and O's and daily weights. [employer] was consulted as well as physical therapy for possible rehab. The patient states she feels she might not be able to care for herself as she gets her medications mixed up and she has mild family support. Dr. Luna wanted to continue her same diuretic regimen as well as her anticoagulation with warfarin, keep her on Cardizem and metoprolol. She continues to be an established patient with Dr. Brandi Gallegos and she plans to continue following him. For her suspected pneumonia, she was started on antibiotics, bronchodilators, aggressive pulmonary toilet, and supplemental O2. Her Actos has been discontinued. This has been associated with worsening heart failure. Her shortness of breath has improved as well as the edema in her legs has overall improved as well. She is being discharged home today with home health as well as home O2. VITAL SIGNS AT TIME OF DISCHARGE: Temperature is 98.2 degrees, heart rate 58, respirations 20, blood pressure 151/58, O2 is 92% on 2 L nasal cannula. DISCHARGE MEDICATIONS: As per Dr. Leyva: 1. Amiodarone 200 mg p.o. daily. 2. Augmentin 875/125, 1 each p.o. q. 12 hours for 7 days. 3. Lipitor 40 mg p.o. at bedtime. 4. Klonopin 0.5 mg p.o. at bedtime. 5. Cardia XT 240 mg p.o. q.a.m. 6. Lasix 80 mg p.o. q.a.m. 7. Brooker 7.5/325, 1 tab p.o. t.i.d. 8. Lantus 25 units subcutaneous at bedtime. 9. Synthroid 50 mcg p.o. daily. 10. Toprol-XL 50 mg p.o. daily. 11. Potassium 20 mEq p.o. daily. 12. Coumadin 5 mg p.o. at bedtime. FOLLOW-UP: Ms. Sanchez is being discharged home with [facility] and home O2. She will continue to follow up with her primary care physician, Dr. Moy, as well as her primary research chemist Dr. Sherri Gallegos. She also reports for her compression fractures, she has a scheduled appointment with Dr. Oneal Covarrubias for possible back surgery in the future. She will need to continue to follow up with him. She can return to the ED for any worsening of symptoms. She has been educated on fluid management as well as daily weights and the reading of food labels for sodium intake. She can return to the ED for any worsening of symptoms. Discharge time 30 minutes. Dictated by YAAKOV Cordova for Jose Leyva MD cc: MD Elo Scott MD pt examined, agree with above APENOT MTDD
== END 2017-02-28 16:16 | disposition home health service (06) ==
LOC: ED 11:24 → 3N 18:01 → SUATTDRO 18:01
PROVIDERS: ATTEND Internal Medicine

== ENCOUNTER 2017-03-06 06:26 | Inpatient (IN) ==
[2017-03-06] MEDS ORDERED: DUONEB (A & A) INH ONE (06:39)
[2017-03-06] MEDS ORDERED: SOLU-MEDROL IV ONE (06:39)
[2017-03-06 07:02] LABS: MANUAL DIFF NEEDED? NO
[2017-03-06 07:10] LABS: BASO% 0.2 % (0.0-0.8); EOS# 0.16 X1000 (0.0-0.7); EOS% 2.5 % (0.0-10.0); HEMATOCRIT 39.4 % (37.0-47.0); HEMOGLOBIN 12.6 g/dL (12.0-16.0); IMM GRAN# 0.02 X1000 (0.0-0.04); IMM GRAN% 0.3 % (0.0-0.5); LYMPH# 1.39 X1000 (1.2-3.4); LYMPH% 21.8 % (20.5-51.1); MCV 90.8 FL (81-99); MONO% 7.8 % (1.7-9.3); NEUT% 67.4 % (42.2-75.2); PLT 210 X1000 (130-400); RBC 4.34 XMIL (4.2-5.4)
[2017-03-06 07:29] LABS: ALLEN TEST YES; BLOOD TYPE ARTERIAL; DRAW SITE R RADIAL; METHB 1.1 % (0.0-1.5); O2(CT) 15.3 mL/dL (15.0-23.0); PCO2(98.6) 40 mmHg (35-45); PO2(98.6) 62 mmHg (60-100); SAMPLE BLOOD; THB 11.7 g/dL (11.5-17.4); pH(98.6) 7.47 (7.35-7.45)
[2017-03-06 07:30] LABS: MODALITY CANNULA
[2017-03-06 07:42] LABS: INR 2.82; PROTIME 31.6 Seconds (9.2-11.7); PTT 40.7 Seconds (22.0-36.0)
[2017-03-06 07:51] LABS: ALBUMIN 3.8 g/dL (3.5-5.0); CALCIUM 9.1 mg/dL (8.8-10.2); TOTAL BILIRUBIN 0.82 mg/dL (0.20-1.00)
[2017-03-06 07:52] LABS: POTASSIUM 3.8 mmol/L (3.5-5.1); TOTAL PROTEIN 6.7 g/dL (6.3-8.3)
[2017-03-06] MEDS ORDERED: PERCOCET-10 PO ONE (07:56)
[2017-03-06 08:02] LABS: URINE CULTURE NEEDED? NO; URINE MICRO REVIEW NEEDED? NO; URINE SOURCE CATH
[2017-03-06 08:07] LABS: BILIRUBIN URINE NEGATIVE (NEGATIVE); BLOOD URINE NEGATIVE (NEGATIVE); COLOR YELLOW; GLUCOSE URINE NEGATIVE (NEGATIVE); LEUKOCYTES URINE NEGATIVE (NEGATIVE); NITRITE URINE NEGATIVE (NEGATIVE); PH URINE 7.5; PROTEIN URINE TRACE mg/dL (NEGATIVE); SP GRAVITY URINE 1.009; TURBIDITY URINE CLEAR (CLEAR); UROBILINOGEN URINE NORMAL (NORMAL)
[2017-03-06 08:09] LABS: UR EPITHELIAL CELLS <10 /HPF (<10); URINE BACTERIA NEGATIVE /HPF; URINE RBC <10 /HPF (<10); URINE WBC <10 /HPF (<10)
--- NOTE | 2017-03-06 09:49 | Diag Imaging Result Doc PS360 ---
EXAM: CHEST-PORTABLE INDICATION: SOB TECHNIQUE: One view COMPARISON: 02/28/2017 FINDINGS: There is a moderate to large sized left pleural effusion that appears slightly larger. There is adjacent left basilar atelectasis and/or infiltrate. There is stable mild increased interstitial markings indicating mild edema. Cardiac silhouette is stable. IMPRESSION: Increasing left pleural effusion. Electronically signed by Misha Li 03/06/2017 9:46 AM
[2017-03-06] MEDS ORDERED: APRESOLINE IV ONE (10:01)
[2017-03-06] MEDS ORDERED: APRESOLINE IV PRN (10:02)
[2017-03-06] MEDS ORDERED: LASIX IV ONE (10:02)
[2017-03-06] MEDS ORDERED: TYLENOL PO PRN (11:00)
[2017-03-06] MEDS: DUONEB (A & A) INH SCH ×3 (11:30→22:48)
[2017-03-06] MEDS: HUMULIN R SUBQ SCH ×3 (12:33→21:23)
[2017-03-06] MEDS: ROCEPHIN 1 GM/NS 1 GM/50 ML IVPB IV SCH (14:44)
[2017-03-06] MEDS: CARDIZEM CD PO SCH (14:45)
[2017-03-06] MEDS: CORDARONE PO SCH (14:45)
[2017-03-06] MEDS: KLOR-CON PO SCH (14:45)
[2017-03-06] MEDS: PRILOSEC PO SCH ×2 (14:45→21:24)
[2017-03-06] MEDS: SYNTHROID PO SCH (14:46)
[2017-03-06] MEDS: TOPROL XL PO SCH (14:46)
[2017-03-06] MEDS: NORCO-7.5 PO PRN ×2 (15:41→21:41)
[2017-03-06] MEDS ORDERED: COUMADIN PO SCH (21:00)
[2017-03-06] MEDS: LASIX IV SCH (21:21)
[2017-03-06] MEDS: LIPITOR PO SCH (21:24)
[2017-03-06] MEDS: KLONOPIN PO SCH (21:25)
[2017-03-06] MEDS ORDERED: INSULIN PEN NEEDLES ONE (22:23)
[2017-03-06] MEDS: LANTUS SUBQ SCH (22:26)
[2017-03-07] MEDS: HUMULIN R SUBQ SCH ×6 (00:13→20:27)
[2017-03-07 05:16] LABS: ALLEN TEST YES; BE 4.9 mmoll (-3.0-3.0); BLOOD TYPE ARTERIAL; DRAW SITE R RADIAL; METHB 1.4 % (0.0-1.5); O2(CT) 15.5 mL/dL (15.0-23.0); PCO2(98.6) 41 mmHg (35-45); PO2(98.6) 76 mmHg (60-100); SAMPLE BLOOD; SAO2 97.8 % (95.0-100.0); THB 11.6 g/dL (11.5-17.4); pH(98.6) 7.46 (7.35-7.45)
[2017-03-07 05:17] LABS: MANUAL DIFF NEEDED? NO
[2017-03-07 05:17] LABS: MODALITY CANNULA
[2017-03-07 05:27] LABS: HEMATOCRIT 35.4 % (37.0-47.0); HEMOGLOBIN 11.5 g/dL (12.0-16.0); IMM GRAN# 0.02 X1000 (0.0-0.04); IMM GRAN% 0.2 % (0.0-0.5); LYMPH% 13.1 % (20.5-51.1); MCHC 32.5 g/dL (33-37); MCV 89.4 FL (81-99); MONO# 0.69 X1000 (0.11-0.59); MPV 11.6 FL (7.4-10.4); NEUT% 79.7 % (42.2-75.2); PLT 222 X1000 (130-400); RBC 3.96 XMIL (4.2-5.4)
[2017-03-07 05:42] LABS: ALBUMIN 3.2 g/dL (3.5-5.0); CALCIUM 8.9 mg/dL (8.8-10.2); POTASSIUM 3.7 mmol/L (3.5-5.1); TOTAL BILIRUBIN 0.48 mg/dL (0.20-1.00); TOTAL PROTEIN 5.9 g/dL (6.3-8.3)
[2017-03-07] MEDS: PRILOSEC PO SCH ×3 (05:52→20:19)
[2017-03-07] MEDS: SYNTHROID PO SCH ×2 (05:53→09:28)
[2017-03-07 05:57] LABS: PTT 38.3 Seconds (22.0-36.0)
[2017-03-07 06:42] LABS: INR 2.83; PROTIME 31.7 Seconds (9.2-11.7)
[2017-03-07] MEDS: NORCO-7.5 PO PRN (07:18)
--- NOTE | 2017-03-07 07:31 | Diag Imaging Result Doc PS360 ---
CHEST-PORTABLE - 03/07/2017 INDICATION: large left pleural effusion TECHNIQUE: COMPARISON: 03/06/2017 FINDINGS: Stable moderate to large left pleural effusion. Heart size and pulmonary vascularity are normal. No focal infiltrates. IMPRESSION: Left pleural effusion. No change from prior. Electronically signed by Ugo Martinez 03/07/2017 7:28 AM
[2017-03-07] MEDS: DUONEB (A & A) INH SCH ×5 (07:34→20:09)
[2017-03-07] MEDS ORDERED: VITAMIN K SUBQ ONE (08:22)
[2017-03-07] MEDS: MIRALAX PO SCH ×2 (08:50→20:19)
[2017-03-07] MEDS: CARDIZEM CD PO SCH (08:52)
[2017-03-07] MEDS: TOPROL XL PO SCH (08:52)
[2017-03-07] MEDS: KLOR-CON PO SCH (08:52)
[2017-03-07] MEDS: CORDARONE PO SCH (08:52)
[2017-03-07] MEDS: LASIX IV SCH ×2 (08:52→20:19)
--- NOTE | 2017-03-07 11:31 | Diag Imaging Result Doc PS360 ---
EXAM: CT THORAX W/O CONTRAST HISTORY: SOB TECHNIQUE: CT chest without contrast. Dose reduction protocol. COMPARISON: 02/25/2017 FINDINGS: There is no longer a right-sided pleural effusion. There is a small left-sided pleural effusion similar to the prior exam. This measures 2.1 cm posteriorly and inferiorly in the midline. The heart remains enlarged. No thoracic aortic aneurysm. There are small mediastinal nodes similar to the prior exam. The patchy infiltrates in the right lung have nearly completely resolved. No significant change in the infiltrates and atelectasis in the left lung. Limited images through the upper abdomen reveal cholecystectomy and right kidney prominence of the prior study. IMPRESSION: Overall improvement in the right chest although there has been very little change on the left. Electronically signed by Rubén Harper 03/07/2017 11:29 AM
[2017-03-07] MEDS: ROCEPHIN 1 GM/NS 1 GM/50 ML IVPB IV SCH (12:10)
[2017-03-07] MEDS: LANTUS SUBQ SCH (20:19)
[2017-03-07] MEDS: KLONOPIN PO SCH (20:19)
[2017-03-07] MEDS: LIPITOR PO SCH (20:19)
[2017-03-07] MEDS: COUMADIN PO SCH (23:26)
[2017-03-08] MEDS: DUONEB (A & A) INH SCH ×6 (00:56→19:18)
[2017-03-08] MEDS: NORCO-7.5 PO PRN ×3 (01:07→22:35)
[2017-03-08 05:20] LABS: HEMATOCRIT 34.4 % (37.0-47.0); MCH 29.6 PG (27-31); MCV 92.7 FL (81-99); MPV 11.7 FL (7.4-10.4); RBC 3.71 XMIL (4.2-5.4)
[2017-03-08 05:42] LABS: INR 2.01; PROTIME 22.1 Seconds (9.2-11.7)
[2017-03-08 05:56] LABS: CALCIUM 8.4 mg/dL (8.8-10.2)
[2017-03-08] MEDS: SYNTHROID PO SCH (06:16)
[2017-03-08] MEDS: PRILOSEC PO SCH ×2 (06:16→22:18)
[2017-03-08] MEDS: HUMULIN R SUBQ SCH ×4 (06:17→22:17)
--- NOTE | 2017-03-08 08:07 | Diag Imaging Result Doc PS360 ---
EXAM: CHEST-2 VIEWS HISTORY: pleural effusion TECHNIQUE: PA and lateral chest COMMENT: There is a large left pleural effusion. There is been no significant change since 03/07/2017. IMPRESSION: Large left pleural effusion. Electronically signed by Cecilio Gomez 03/08/2017 8:04 AM
[2017-03-08] MEDS: TOPROL XL PO SCH (09:13)
[2017-03-08] MEDS: LASIX PO SCH ×2 (09:13→22:18)
[2017-03-08] MEDS: MIRALAX PO SCH ×2 (09:13→22:19)
[2017-03-08] MEDS: CARDIZEM CD PO SCH (09:13)
[2017-03-08] MEDS: KLOR-CON PO SCH (09:13)
[2017-03-08] MEDS: CORDARONE PO SCH (09:13)
[2017-03-08] MEDS: ROCEPHIN 1 GM/NS 1 GM/50 ML IVPB IV SCH (11:33)
[2017-03-08] MEDS: COUMADIN PO SCH (22:17)
[2017-03-08] MEDS: LIPITOR PO SCH (22:18)
[2017-03-08] MEDS: LANTUS SUBQ SCH (22:18)
[2017-03-08] MEDS: KLONOPIN PO SCH (22:18)
[2017-03-09] MEDS: DUONEB (A & A) INH SCH ×7 (02:27→23:06)
[2017-03-09] MEDS: NORCO-7.5 PO PRN ×2 (04:55→20:18)
[2017-03-09] MEDS: PRILOSEC PO SCH ×2 (05:59→20:20)
[2017-03-09] MEDS: HUMULIN R SUBQ SCH ×4 (06:00→20:19)
[2017-03-09] MEDS: SYNTHROID PO SCH (06:00)
[2017-03-09 06:28] LABS: INR 1.38; PROTIME 14.8 Seconds (9.2-11.7)
[2017-03-09 06:36] LABS: HEMOGLOBIN 10.7 g/dL (12.0-16.0); MCH 29.6 PG (27-31); MCHC 31.5 g/dL (33-37); MCV 94.2 FL (81-99); MPV 12.1 FL (7.4-10.4); RBC 3.61 XMIL (4.2-5.4)
[2017-03-09] MEDS: MIRALAX PO SCH ×2 (08:37→20:21)
[2017-03-09] MEDS: CARDIZEM CD PO SCH (08:37)
[2017-03-09] MEDS: CORDARONE PO SCH (08:37)
[2017-03-09] MEDS: LASIX PO SCH ×2 (08:38→20:20)
[2017-03-09] MEDS: KLOR-CON PO SCH (08:38)
[2017-03-09] MEDS: TOPROL XL PO SCH (08:38)
[2017-03-09] MEDS: ROCEPHIN 1 GM in NS 50 ML IV SCH (12:02)
[2017-03-09] MEDS: COUMADIN PO SCH (20:18)
[2017-03-09] MEDS: LIPITOR PO SCH (20:18)
[2017-03-09] MEDS: KLONOPIN PO SCH (20:20)
[2017-03-09] MEDS: LANTUS SUBQ SCH (20:20)
[2017-03-10] MEDS: NORCO-7.5 PO PRN ×3 (01:27→21:05)
[2017-03-10] MEDS: DUONEB (A & A) INH SCH ×6 (03:22→23:05)
[2017-03-10 05:42] LABS: INR 1.19; PROTIME 12.6 Seconds (9.2-11.7)
[2017-03-10 05:53] LABS: CALCIUM 8.5 mg/dL (8.8-10.2); POTASSIUM 3.8 mmol/L (3.5-5.1)
[2017-03-10] MEDS: PRILOSEC PO SCH ×2 (06:20→20:09)
[2017-03-10] MEDS: SYNTHROID PO SCH (06:20)
[2017-03-10] MEDS: HUMULIN R SUBQ SCH ×4 (06:45→20:24)
--- NOTE | 2017-03-10 07:29 | Diag Imaging Result Doc PS360 ---
EXAM: CHEST-PORTABLE HISTORY: dyspnea TECHNIQUE: Erect AP portable at 0555 COMMENT: There is a pleural effusion on the left which appears to have increased in volume since 03/08/2017. There is apparent mild interstitial pulmonary edema which is also slightly worse. IMPRESSION: Worsened pulmonary edema and left pleural effusion. Electronically signed by Cecilio Gomez 03/10/2017 7:27 AM
[2017-03-10] MEDS: KLOR-CON PO SCH (08:50)
[2017-03-10] MEDS: LASIX PO SCH ×2 (08:50→20:09)
[2017-03-10] MEDS: TOPROL XL PO SCH (08:50)
[2017-03-10] MEDS: CARDIZEM CD PO SCH (08:50)
[2017-03-10] MEDS: CORDARONE PO SCH (08:50)
--- NOTE | 2017-03-10 11:02 | Diag Imaging Result Doc PS360 ---
EXAM: CHEST-2 VIEWS HISTORY: POST LEFT THORA TECHNIQUE: Inspiratory expiratory PA upright COMMENT: The left pleural fluid collection is diminished in volume. There is no evidence of pneumothorax. IMPRESSION: Improved left pleural fluid collection. Electronically signed by Cecilio Gomez 03/10/2017 10:59 AM
--- NOTE | 2017-03-10 11:40 | Diag Imaging Result Doc PS360 ---
EXAM: THORACENTESIS W/IMAGE GUIDANCE HISTORY: L effusion TECHNIQUE: Ultrasound-guided thoracentesis on the left COMMENT: The risks and benefits of the procedure including the possibility of pneumothorax, infection, reaction to lidocaine, and bleeding were discussed with the patient. The patient agreed to the procedure. Following sterile preparation the skin and administration 1% lidocaine to the skin and deeper soft tissues the thoracentesis catheter was placed and the left pleural fluid collection from the posterior approach. A total of 700 mL of straw-colored fluid was aspirated. There are no immediate complications. The fluid was sent in its entirety to the laboratory. IMPRESSION: Successful ultrasound-guided left thoracentesis. Electronically signed by Cecilio Gomez 03/10/2017 11:37 AM
[2017-03-10 11:53] LABS: SPECIMEN PLEURAL FLUID
[2017-03-10 11:54] LABS: DIFF NEEDED? YES; WBC BF 203 /cumm
[2017-03-10] MEDS: MIRALAX PO SCH ×2 (12:04→20:10)
[2017-03-10 12:11] LABS: TOTAL PROT BODY FLUID 2.8 g/dL
[2017-03-10 12:17] LABS: POLYS 5 %
[2017-03-10 12:19] LABS: MONOS 95 %
[2017-03-10] MEDS: ZOFRAN IV PRN (13:25)
[2017-03-10] MEDS: ROCEPHIN 1 GM in NS 50 ML IV SCH (13:26)
[2017-03-10] MEDS: DILAUDID IV PRN ×2 (15:59→20:04)
[2017-03-10] MEDS: LIPITOR PO SCH (20:09)
[2017-03-10] MEDS: KLONOPIN PO SCH (20:09)
[2017-03-10] MEDS: COUMADIN PO SCH (20:10)
[2017-03-10] MEDS: LANTUS SUBQ SCH (21:43)
[2017-03-11] MEDS: DILAUDID IV PRN (01:15)
[2017-03-11] MEDS: DUONEB (A & A) INH SCH ×6 (03:23→23:10)
[2017-03-11 05:57] LABS: INR 1.1; PROTIME 11.6 Seconds (9.2-11.7)
[2017-03-11 05:58] LABS: CALCIUM 8.3 mg/dL (8.8-10.2); POTASSIUM 4.2 mmol/L (3.5-5.1)
[2017-03-11 06:00] LABS: HEMATOCRIT 28.7 % (37.0-47.0); HEMOGLOBIN 8.9 g/dL (12.0-16.0); MCH 29.5 PG (27-31); MPV 11.8 FL (7.4-10.4); RBC 3.02 XMIL (4.2-5.4)
[2017-03-11] MEDS: HUMULIN R SUBQ SCH ×4 (06:29→21:59)
[2017-03-11] MEDS: PRILOSEC PO SCH ×2 (06:30→21:50)
[2017-03-11] MEDS: SYNTHROID PO SCH (06:30)
[2017-03-11] MEDS: NORCO-7.5 PO PRN ×3 (09:24→21:58)
[2017-03-11] MEDS: KLOR-CON PO SCH (10:05)
[2017-03-11] MEDS: CORDARONE PO SCH (10:05)
[2017-03-11] MEDS: ROCEPHIN 1 GM in NS 50 ML IV SCH (10:05)
[2017-03-11] MEDS: LASIX PO SCH (10:05)
[2017-03-11] MEDS: MIRALAX PO SCH ×2 (10:05→21:55)
[2017-03-11] MEDS: CARDIZEM CD PO SCH (10:05)
[2017-03-11] MEDS: TOPROL XL PO SCH (10:06)
[2017-03-11] MEDS: COUMADIN PO SCH (21:56)
[2017-03-11] MEDS: LIPITOR PO SCH (21:59)
[2017-03-11] MEDS: LANTUS SUBQ SCH (22:00)
[2017-03-11] MEDS: KLONOPIN PO SCH (22:08)
[2017-03-12] MEDS: DUONEB (A & A) INH SCH ×6 (03:15→23:05)
[2017-03-12] MEDS: HUMULIN R SUBQ SCH ×4 (06:07→22:06)
[2017-03-12] MEDS: PRILOSEC PO SCH ×2 (06:07→22:07)
[2017-03-12] MEDS: SYNTHROID PO SCH (06:08)
[2017-03-12] MEDS: DILAUDID IV PRN ×3 (06:10→23:38)
[2017-03-12 06:54] LABS: HEMATOCRIT 26.7 % (37.0-47.0); HEMOGLOBIN 8.3 g/dL (12.0-16.0); MCH 30.1 PG (27-31); MCHC 31.1 g/dL (33-37); MCV 96.7 FL (81-99); MPV 12.3 FL (7.4-10.4); RBC 2.76 XMIL (4.2-5.4)
[2017-03-12 07:00] LABS: INR 1.2; PROTIME 12.7 Seconds (9.2-11.7)
[2017-03-12 07:21] LABS: CALCIUM 8.3 mg/dL (8.8-10.2); POTASSIUM 4.8 mmol/L (3.5-5.1)
[2017-03-12] MEDS: NORCO-7.5 PO PRN ×2 (08:23→20:23)
[2017-03-12] MEDS: KLOR-CON PO SCH (08:23)
[2017-03-12] MEDS: CARDIZEM CD PO SCH (08:23)
[2017-03-12] MEDS: CORDARONE PO SCH (08:23)
[2017-03-12] MEDS: TOPROL XL PO SCH (08:24)
[2017-03-12] MEDS: MIRALAX PO SCH ×2 (08:24→22:07)
--- NOTE | 2017-03-12 08:37 | Diag Imaging Result Doc PS360 ---
CHEST-PORTABLE - 03/12/2017 INDICATION: dyspnea TECHNIQUE: COMPARISON: 03/10/2017 FINDINGS: There is new, significant opacification of the left lung base. There appears to be a meniscus sign. About 80% of the left hemithorax is opacified. No mediastinal shift. The right lung is normally expanded and clear. IMPRESSION: New, rapid, near complete opacification of the left hemithorax. Concerning for large pleural effusion or hemothorax. Mucous plugging with left lower lobe collapse is considered unlikely due to the volume neutral effect. Correlate clinically. Electronically signed by Ugo Martinez 03/12/2017 8:35 AM
[2017-03-12] MEDS: ROCEPHIN 1 GM in NS 50 ML IV SCH (11:52)
[2017-03-12] MEDS: KLONOPIN PO SCH (20:23)
[2017-03-12] MEDS: LIPITOR PO SCH (22:07)
[2017-03-12] MEDS: LANTUS SUBQ SCH (22:07)
[2017-03-12] MEDS: COUMADIN PO SCH (22:07)
[2017-03-13] MEDS: NORCO-7.5 PO PRN ×3 (02:14→21:50)
[2017-03-13] MEDS: DUONEB (A & A) INH SCH ×6 (03:33→23:24)
[2017-03-13] MEDS: SYNTHROID PO SCH (06:46)
[2017-03-13] MEDS: HUMULIN R SUBQ SCH ×4 (06:46→21:49)
[2017-03-13] MEDS: PRILOSEC PO SCH ×2 (06:47→21:50)
[2017-03-13 06:55] LABS: HEMATOCRIT 26.4 % (37.0-47.0); HEMOGLOBIN 8.1 g/dL (12.0-16.0); MCH 29.7 PG (27-31); MCHC 30.7 g/dL (33-37); MCV 96.7 FL (81-99); MPV 12.3 FL (7.4-10.4); RBC 2.73 XMIL (4.2-5.4)
[2017-03-13 06:58] LABS: INR 1.24; PROTIME 13.2 Seconds (9.2-11.7)
[2017-03-13 07:06] LABS: CALCIUM 8.8 mg/dL (8.8-10.2); POTASSIUM 5.3 mmol/L (3.5-5.1)
[2017-03-13] MEDS: TOPROL XL PO SCH (08:34)
[2017-03-13] MEDS: KLOR-CON PO SCH (08:34)
[2017-03-13] MEDS: CORDARONE PO SCH (08:34)
[2017-03-13] MEDS: CARDIZEM CD PO SCH (08:34)
[2017-03-13] MEDS: MIRALAX PO SCH ×2 (08:35→21:49)
[2017-03-13] MEDS: LASIX PO SCH ×2 (08:38→21:51)
--- NOTE | 2017-03-13 09:57 | Diag Imaging Result Doc PS360 ---
LAT. DECUBITUS VIEW-LEFT - 03/13/2017 INDICATION: effusion TECHNIQUE: Left lateral decubitus frontal chest x-ray COMPARISON: 03/12/2017 FINDINGS: More so on the right lateral decubitus chest x-ray, the large left-sided effusion appears free flowing. IMPRESSION: Large free-flowing left pleural effusion. Electronically signed by Ugo Martinez 03/13/2017 9:55 AM
--- NOTE | 2017-03-13 09:58 | Diag Imaging Result Doc PS360 ---
LAT. DECUBITUS VIEW - RIGHT - 03/13/2017 INDICATION: effusion TECHNIQUE: COMPARISON: 03/12/2017 FINDINGS: There is a large, free-flowing left pleural effusion. IMPRESSION: Large free-flowing left pleural effusion. Electronically signed by Ugo Martinez 03/13/2017 9:55 AM
[2017-03-13] MEDS: ROCEPHIN 1 GM in NS 50 ML IV SCH (10:32)
[2017-03-13] MEDS ORDERED: INSULIN PEN NEEDLES ONE (15:58)
[2017-03-13] MEDS ORDERED: SODIUM BICARBONATE 8.4% IV PUSH ONE (19:36)
[2017-03-13] MEDS ORDERED: ALBUTEROL 0.5% INH CONC FOR HYPERKALEMIA INH ONE (19:37)
[2017-03-13] MEDS: LANTUS SUBQ SCH (21:49)
[2017-03-13] MEDS: COUMADIN PO SCH (21:50)
[2017-03-13] MEDS: LIPITOR PO SCH (21:50)
[2017-03-13] MEDS: KLONOPIN PO SCH (21:51)
[2017-03-14] MEDS: DUONEB (A & A) INH SCH ×6 (03:15→23:40)
[2017-03-14] MEDS: ZOFRAN IV PRN (03:52)
[2017-03-14] MEDS: NORCO-7.5 PO PRN ×2 (06:09→16:17)
[2017-03-14] MEDS: PRILOSEC PO SCH ×2 (06:09→20:14)
[2017-03-14] MEDS: SYNTHROID PO SCH (06:10)
[2017-03-14 06:17] LABS: INR 1.2; PROTIME 12.7 Seconds (9.2-11.7)
[2017-03-14] MEDS: HUMULIN R SUBQ SCH ×5 (06:24→23:14)
[2017-03-14 06:31] LABS: HEMATOCRIT 27.1 % (37.0-47.0); HEMOGLOBIN 8.5 g/dL (12.0-16.0); MCHC 31.4 g/dL (33-37); MCV 95.8 FL (81-99); MPV 12.4 FL (7.4-10.4); RBC 2.83 XMIL (4.2-5.4)
[2017-03-14 06:33] LABS: CALCIUM 8.4 mg/dL (8.8-10.2); POTASSIUM 4.2 mmol/L (3.5-5.1)
[2017-03-14 08:58] LABS: FERRITIN 48 ng/mL (13-150)
--- NOTE | 2017-03-14 09:23 | Diag Imaging Result Doc PS360 ---
EXAM: CT THORAX W/O CONTRAST HISTORY: SOB TECHNIQUE: CT of the chest without intravenous contrast with dose reduction (clarity.) COMMENT: The current study is compared without of 03/07/2017. Compared to the previous study, there is an increased volume of pleural fluid which appears loculated on the left. There is considerable nodularity within the pleural surfaces particularly dependently and posteriorly. This may be due to blood clots as they are much more prominent than on the previous study. There are no fluid collections on the right. There is cardiomegaly with left ventricular enlargement and calcification of the aortic valve and to a lesser extent the coronary branches. There is a 13 mm prevascular node. This has not changed since the previous study. The regional skeleton appears to be stable. There is worsening compressive atelectasis in the left lung particularly the lower lobe which is nearly completely airless. This is also true of the lingula. The possibility of pneumonia cannot be excluded. The right lung is essentially stable with some subsegmental atelectatic changes in the base there is a nodular opacity in the azygos esophageal recess of the right lower lobe which is actually somewhat less prominent than on the previous study. IMPRESSION: Worsened loculated pleural effusion on the left which is probably hemorrhagic. The possibility of empyema cannot be excluded. Electronically signed by Cecilio Gomez 03/14/2017 9:21 AM
[2017-03-14] MEDS: CORDARONE PO SCH (09:26)
[2017-03-14] MEDS: CARDIZEM CD PO SCH (09:26)
[2017-03-14] MEDS: LASIX PO SCH ×2 (09:26→20:14)
[2017-03-14] MEDS: MIRALAX PO SCH ×2 (09:27→20:14)
[2017-03-14] MEDS: ROCEPHIN 1 GM in NS 50 ML IV SCH (11:11)
[2017-03-14 15:10] LABS: RETIC% 2.44 % (0.8-2.1); RETIC-HE 32.7 PG (28.2-36.6)
[2017-03-14] MEDS: TOPROL XL PO SCH (18:54)
[2017-03-14] MEDS: LIPITOR PO SCH (20:14)
[2017-03-14] MEDS: KLONOPIN PO SCH (20:14)
[2017-03-14] MEDS: COUMADIN PO SCH (20:14)
[2017-03-14] MEDS: LANTUS SUBQ SCH (20:15)
[2017-03-15] MEDS: DUONEB (A & A) INH SCH ×6 (03:24→23:30)
[2017-03-15] MEDS: NORCO-7.5 PO PRN ×3 (03:57→20:08)
[2017-03-15] MEDS: ZOFRAN IV PRN (03:57)
[2017-03-15] MEDS: PRILOSEC PO SCH ×2 (06:16→20:04)
[2017-03-15] MEDS: SYNTHROID PO SCH (06:17)
[2017-03-15] MEDS: HUMULIN R SUBQ SCH ×5 (06:26→20:09)
[2017-03-15 06:43] LABS: CALCIUM 8.1 mg/dL (8.8-10.2); POTASSIUM 4.2 mmol/L (3.5-5.1)
[2017-03-15] MEDS: CARDIZEM CD PO SCH (08:39)
[2017-03-15] MEDS: MIRALAX PO SCH ×2 (08:39→20:09)
[2017-03-15] MEDS: TOPROL XL PO SCH (08:40)
[2017-03-15] MEDS: LASIX PO SCH ×2 (08:40→20:04)
[2017-03-15] MEDS: CORDARONE PO SCH (08:40)
[2017-03-15] MEDS: ROCEPHIN 1 GM in NS 50 ML IV SCH (13:27)
[2017-03-15] MEDS: LIPITOR PO SCH (20:04)
[2017-03-15] MEDS: COUMADIN PO SCH (20:04)
[2017-03-15] MEDS: LANTUS SUBQ SCH (20:04)
[2017-03-15] MEDS: KLONOPIN PO SCH (20:04)
[2017-03-16] MEDS: DUONEB (A & A) INH SCH ×6 (03:20→23:10)
[2017-03-16] MEDS: SYNTHROID PO SCH ×2 (05:52→18:23)
[2017-03-16] MEDS: PRILOSEC PO SCH ×3 (05:52→22:02)
[2017-03-16 06:20] LABS: CALCIUM 8.3 mg/dL (8.8-10.2); POTASSIUM 3.9 mmol/L (3.5-5.1)
[2017-03-16] MEDS: TOPROL XL PO SCH ×2 (07:53→18:22)
[2017-03-16] MEDS: NORCO-7.5 PO PRN ×2 (11:07→22:52)
[2017-03-16] MEDS: ROCEPHIN 1 GM in NS 50 ML IV SCH (14:38)
[2017-03-16] MEDS ORDERED: FENTANYL ONE (16:10)
[2017-03-16] MEDS ORDERED: SENSORCAINE 0.5%-EPI 1:200,000 ONE (16:27)
[2017-03-16] MEDS ORDERED: XYLOCAINE-MPF 1% ONE (16:27)
[2017-03-16] MEDS ORDERED: LR 1,000 ML ONE (16:34)
[2017-03-16] MEDS ORDERED: NEO-SYNEPHRINE ONE (17:07)
[2017-03-16] MEDS ORDERED: STERILE WATER INJ. ONE (17:54)
[2017-03-16] MEDS ORDERED: ROBINUL ONE (18:02)
[2017-03-16] MEDS ORDERED: NEOSTIGMINE ONE (18:02)
[2017-03-16] MEDS ORDERED: XYLOCAINE-MPF 2% ONE (18:03)
[2017-03-16] MEDS ORDERED: ZEMURON ONE (18:03)
[2017-03-16] MEDS: MORPHINE ONE ×4 (18:17→18:50)
[2017-03-16] MEDS ORDERED: ZOFRAN ONE (18:19)
[2017-03-16] MEDS: HUMULIN R SUBQ SCH ×2 (18:21→22:47)
[2017-03-16] MEDS: MIRALAX PO SCH ×2 (18:22→22:01)
[2017-03-16] MEDS: LASIX PO SCH ×2 (18:23→22:02)
[2017-03-16] MEDS: CARDIZEM CD PO SCH (18:23)
[2017-03-16] MEDS: CORDARONE PO SCH (18:23)
[2017-03-16] MEDS ORDERED: DECADRON ONE (19:36)
[2017-03-16] MEDS: DILAUDID ONE ×3 (19:36→19:47)
[2017-03-16] MEDS ORDERED: OFIRMEV 1000 MG/ISOTONIC SOLN 1,000 MG/100 ML BOTTLE ONE (19:37)
[2017-03-16] MEDS: LIPITOR PO SCH (22:01)
[2017-03-16] MEDS: COUMADIN PO SCH (22:02)
[2017-03-16] MEDS: LANTUS SUBQ SCH (22:02)
[2017-03-16] MEDS: KLONOPIN PO SCH (22:04)
[2017-03-17] MEDS: DUONEB (A & A) INH SCH ×6 (03:25→22:56)
[2017-03-17] MEDS: DILAUDID IV PRN ×2 (03:47→15:14)
[2017-03-17] MEDS: PRILOSEC PO SCH ×4 (05:52→22:47)
[2017-03-17] MEDS: SYNTHROID PO SCH ×2 (05:52→07:24)
--- NOTE | 2017-03-17 07:25 | Diag Imaging Result Doc PS360 ---
EXAM: CHEST-PORTABLE - 03/17/2017 HISTORY: Chest tube placement TECHNIQUE: Portable chest 0500 COMPARISON: 03/12/2017 FINDINGS: There is been interval placement of left chest tube was tip near the apex. There is been associated substantial decrease in left pleural effusion. There is no pneumothorax identified. There is mild atelectasis or infiltrate at the left base. There are no other acute changes identified. IMPRESSION: Interval placement of left chest tube associated substantial decrease in left pleural effusion. Mild atelectasis or infiltrate at left base. Electronically signed by Joaquim Dempsey 03/17/2017 7:23 AM
[2017-03-17] MEDS: CARDIZEM CD PO SCH (08:09)
[2017-03-17] MEDS: PERIDEX MT SCH ×3 (08:09→22:46)
[2017-03-17] MEDS: LASIX PO SCH ×3 (08:09→22:46)
[2017-03-17] MEDS: CORDARONE PO SCH (08:09)
[2017-03-17] MEDS: TOPROL XL PO SCH (08:09)
[2017-03-17] MEDS: MIRALAX PO SCH ×3 (08:09→22:46)
[2017-03-17] MEDS: HUMULIN R SUBQ SCH ×5 (08:10→22:45)
[2017-03-17] MEDS: NORCO-7.5 PO PRN ×3 (09:34→22:18)
[2017-03-17] MEDS: ROCEPHIN 1 GM in NS 50 ML IV SCH (13:43)
[2017-03-17] MEDS: LANTUS SUBQ SCH ×2 (19:56→22:46)
[2017-03-17] MEDS: KLONOPIN PO SCH ×2 (19:57→22:45)
[2017-03-17] MEDS: LIPITOR PO SCH ×2 (19:57→22:46)
[2017-03-17] MEDS: COUMADIN PO SCH ×2 (19:58→22:21)
[2017-03-18] MEDS: DILAUDID IV PRN ×3 (00:28→20:51)
[2017-03-18] MEDS: DUONEB (A & A) INH SCH ×6 (03:30→23:17)
[2017-03-18 05:53] LABS: MANUAL DIFF NEEDED? NO
[2017-03-18 05:59] LABS: BASO% 0.2 % (0.0-0.8); EOS# 0.39 X1000 (0.0-0.7); HEMOGLOBIN 9.3 g/dL (12.0-16.0); IMM GRAN# 0.02 X1000 (0.0-0.04); IMM GRAN% 0.2 % (0.0-0.5); LYMPH# 1.19 X1000 (1.2-3.4); LYMPH% 12.2 % (20.5-51.1); MCV 93.5 FL (81-99); MONO# 0.71 X1000 (0.11-0.59); MONO% 7.3 % (1.7-9.3); MPV 12.2 FL (7.4-10.4); NEUT% 76.1 % (42.2-75.2); PLT 266 X1000 (130-400); RBC 3.21 XMIL (4.2-5.4)
[2017-03-18] MEDS: HUMULIN R SUBQ SCH ×4 (06:05→20:52)
[2017-03-18] MEDS: SYNTHROID PO SCH (06:06)
[2017-03-18] MEDS: PRILOSEC PO SCH ×2 (06:06→20:50)
[2017-03-18 06:15] LABS: INR 1.12; PROTIME 11.9 Seconds (9.2-11.7)
[2017-03-18 06:20] LABS: ALBUMIN 2.9 g/dL (3.5-5.0); CALCIUM 8.5 mg/dL (8.8-10.2); MAGNESIUM 1.9 mg/dL (1.5-2.7); TOTAL BILIRUBIN 0.37 mg/dL (0.20-1.00); TOTAL PROTEIN 5.6 g/dL (6.3-8.3)
[2017-03-18] MEDS: TOPROL XL PO SCH (08:59)
[2017-03-18] MEDS: CARDIZEM CD PO SCH (09:00)
[2017-03-18] MEDS: PERIDEX MT SCH ×2 (09:02→20:48)
[2017-03-18] MEDS: MIRALAX PO SCH ×2 (09:02→20:49)
[2017-03-18] MEDS: CORDARONE PO SCH (09:02)
[2017-03-18] MEDS: LASIX PO SCH ×2 (09:02→20:50)
[2017-03-18] MEDS: NORCO-7.5 PO PRN ×2 (10:17→16:30)
[2017-03-18] MEDS ORDERED: CHLORASEPTIC SPRAY MT PRN (10:23)
[2017-03-18] MEDS: ROCEPHIN 1 GM in NS 50 ML IV SCH (13:50)
[2017-03-18] MEDS ORDERED: INSULIN PEN NEEDLES ONE (15:20)
[2017-03-18] MEDS: LANTUS SUBQ SCH (20:49)
[2017-03-18] MEDS: COUMADIN PO SCH (20:50)
[2017-03-18] MEDS: LIPITOR PO SCH (20:50)
[2017-03-18] MEDS: KLONOPIN PO SCH (20:50)
[2017-03-19] MEDS: NORCO-7.5 PO PRN ×3 (01:03→20:20)
[2017-03-19] MEDS: DUONEB (A & A) INH SCH ×6 (03:05→23:04)
[2017-03-19 06:51] LABS: INR 1.14; PROTIME 12.1 Seconds (9.2-11.7)
[2017-03-19] MEDS: SYNTHROID PO SCH (07:04)
[2017-03-19] MEDS: PRILOSEC PO SCH ×2 (07:04→20:20)
[2017-03-19] MEDS: HUMULIN R SUBQ SCH ×5 (07:06→21:12)
[2017-03-19] MEDS: CARDIZEM CD PO SCH (08:46)
[2017-03-19] MEDS: LASIX PO SCH ×2 (08:46→20:20)
[2017-03-19] MEDS: CORDARONE PO SCH (08:46)
[2017-03-19] MEDS: PERIDEX MT SCH ×2 (08:46→20:21)
[2017-03-19] MEDS: MIRALAX PO SCH ×2 (08:46→20:21)
[2017-03-19] MEDS: TOPROL XL PO SCH (08:46)
--- NOTE | 2017-03-19 12:43 | Diag Imaging Result Doc PS360 ---
EXAM: CHEST-PORTABLE HISTORY: Follow up drainage of pleural effusion TECHNIQUE: AP portable upright chest at 1210 COMMENT: Compared to 03/17/2017 the left chest tube has been removed. There is an apparent small apical pneumothorax on the left which was also apparently present previously. There continues to be atelectasis in the left lower lobe. Right lung is stable in appearance. The heart size is enlarged. IMPRESSION: Minimal residual left apical pneumothorax. Otherwise, essentially unchanged since 03/17/2017. Electronically signed by Cecilio Gomez 03/19/2017 12:41 PM
[2017-03-19] MEDS: ROCEPHIN 1 GM in NS 50 ML IV SCH (15:56)
[2017-03-19] MEDS: KLONOPIN PO SCH (20:20)
[2017-03-19] MEDS: COUMADIN PO SCH (20:20)
[2017-03-19] MEDS: LIPITOR PO SCH (20:20)
[2017-03-19] MEDS: LANTUS SUBQ SCH (20:21)
[2017-03-20] MEDS: DILAUDID IV PRN (01:15)
[2017-03-20] MEDS: DUONEB (A & A) INH SCH ×6 (03:10→23:26)
[2017-03-20 05:53] LABS: INR 1.15; PROTIME 12.2 Seconds (9.2-11.7)
[2017-03-20] MEDS: HUMULIN R SUBQ SCH ×4 (06:02→21:49)
[2017-03-20] MEDS: PRILOSEC PO SCH ×2 (06:08→21:15)
[2017-03-20] MEDS: SYNTHROID PO SCH (06:08)
--- NOTE | 2017-03-20 06:56 | Diag Imaging Result Doc PS360 ---
EXAM: CHEST-1 VIEW HISTORY: SOB TECHNIQUE: AP portable upright at 0510 COMMENT: Compared to the previous study of 03/19/2017 there is accumulation of a loculated pleural fluid collection in the left lateral apical region. There is shift of the mediastinum slightly to the left which has worsened since the previous study. The right lung is essentially stable. There may be some bronchiectasis in the medial portion of the right base. IMPRESSION: Worsened left lower lobe atelectasis. New loculated pleural effusion on the left superiorly. Electronically signed by Cecilio Gomez 03/20/2017 6:54 AM
[2017-03-20] MEDS: CARDIZEM CD PO SCH (08:42)
[2017-03-20] MEDS: TOPROL XL PO SCH (08:42)
[2017-03-20] MEDS: PERIDEX MT SCH ×2 (08:42→21:15)
[2017-03-20] MEDS: MIRALAX PO SCH ×2 (08:42→21:15)
[2017-03-20] MEDS: LASIX PO SCH ×2 (08:42→21:16)
[2017-03-20] MEDS: CORDARONE PO SCH (08:42)
[2017-03-20] MEDS: NORCO-7.5 PO PRN ×2 (12:41→21:14)
[2017-03-20] MEDS: ROCEPHIN 1 GM in NS 50 ML IV SCH (12:43)
[2017-03-20] MEDS: KLONOPIN PO SCH (21:15)
[2017-03-20] MEDS: LIPITOR PO SCH (21:15)
[2017-03-20] MEDS: LANTUS SUBQ SCH (21:16)
[2017-03-20] MEDS: COUMADIN PO SCH (21:20)
[2017-03-21] MEDS: DUONEB (A & A) INH SCH ×6 (03:19→23:10)
[2017-03-21 05:55] LABS: INR 1.15; PROTIME 12.2 Seconds (9.2-11.7)
[2017-03-21] MEDS: PRILOSEC PO SCH ×2 (06:12→22:10)
[2017-03-21] MEDS: SYNTHROID PO SCH (06:12)
[2017-03-21] MEDS: HUMULIN R SUBQ SCH ×4 (06:12→21:58)
--- NOTE | 2017-03-21 07:19 | Diag Imaging Result Doc PS360 ---
EXAM: CHEST-1 VIEW HISTORY: SOB TECHNIQUE: Erect AP portable at 0535 COMMENT: The loculated pleural fluid collection on the left is again noted. Compared to 03/20/2017 there has been no appreciable change. IMPRESSION: Stable since 03/20/2017. Electronically signed by Cecilio Gomez 03/21/2017 7:17 AM
[2017-03-21] MEDS: TOPROL XL PO SCH (08:07)
[2017-03-21] MEDS: MIRALAX PO SCH ×2 (08:07→21:52)
[2017-03-21] MEDS: CORDARONE PO SCH (08:07)
[2017-03-21] MEDS: PERIDEX MT SCH ×2 (08:07→21:53)
[2017-03-21] MEDS: LASIX PO SCH ×2 (08:07→21:52)
[2017-03-21] MEDS: CARDIZEM CD PO SCH (08:07)
--- NOTE | 2017-03-21 12:50 | Diag Imaging Result Doc PS360 ---
EXAM: CHEST-PORTABLE HISTORY: large amount drainage from chest tube site TECHNIQUE: AP portable upright at 1240 COMMENT: Compared to the previous examination of 03/21/2017, the loculated fluid collection in the left apical region has diminished considerably. This may have been replaced by air to some extent. There is less atelectasis apparent in the left lower lung and the mediastinum is less shifted to the left. IMPRESSION: Apparent spontaneous drainage of left loculated pleural effusion. Improved left lower lobe atelectasis. Electronically signed by Cecilio Gomez 03/21/2017 12:47 PM
[2017-03-21] MEDS: ROCEPHIN 1 GM in NS 50 ML IV SCH (12:56)
[2017-03-21] MEDS ORDERED: COUMADIN PO SCH (14:01)
[2017-03-21] MEDS: NORCO-7.5 PO PRN ×2 (14:28→21:51)
[2017-03-21] MEDS: LIPITOR PO SCH (21:52)
[2017-03-21] MEDS: LANTUS SUBQ SCH (21:53)
[2017-03-21] MEDS: COUMADIN PO SCH (21:57)
[2017-03-21] MEDS: KLONOPIN PO SCH (21:58)
[2017-03-21] MEDS: DILAUDID IV PRN (23:36)
[2017-03-22] MEDS: DUONEB (A & A) INH SCH ×6 (03:30→22:47)
[2017-03-22] MEDS: HUMULIN R SUBQ SCH ×4 (06:00→20:07)
[2017-03-22] MEDS: PRILOSEC PO SCH ×2 (06:00→20:04)
[2017-03-22] MEDS: SYNTHROID PO SCH (06:00)
--- NOTE | 2017-03-22 07:23 | Diag Imaging Result Doc PS360 ---
EXAM: CHEST-1 VIEW HISTORY: SOB TECHNIQUE: Erect AP portable at 0555 COMMENT: The loculated pleural fluid collection which has been described on previous studies on the left but which has apparently spontaneously drained at the time of the previous study of 03/21/2017, has apparently reaccumulated. Otherwise, considering differences in technique, there has been no significant change. IMPRESSION: Reaccumulation of loculated pleural effusion on the left. Electronically signed by Cecilio Gomez 03/22/2017 7:21 AM
[2017-03-22 09:15] LABS: MANUAL DIFF NEEDED? NO
[2017-03-22 09:25] LABS: BASO% 0.2 % (0.0-0.8); EOS# 0.32 X1000 (0.0-0.7); EOS% 3.6 % (0.0-10.0); INR 1.14; LYMPH# 1.42 X1000 (1.2-3.4); MCH 29.1 PG (27-31); MCV 93.9 FL (81-99); MONO# 0.53 X1000 (0.11-0.59); MPV 11.9 FL (7.4-10.4); NEUT% 74.2 % (42.2-75.2); PLT 266 X1000 (130-400); PROTIME 12.1 Seconds (9.2-11.7); RBC 3.09 XMIL (4.2-5.4)
[2017-03-22] MEDS: PERIDEX MT SCH ×2 (09:48→21:48)
[2017-03-22] MEDS: CORDARONE PO SCH (09:48)
[2017-03-22] MEDS: CARDIZEM CD PO SCH (09:48)
[2017-03-22] MEDS: LASIX PO SCH ×2 (09:48→20:04)
[2017-03-22] MEDS: TOPROL XL PO SCH (09:48)
[2017-03-22] MEDS: MIRALAX PO SCH ×2 (09:49→20:03)
[2017-03-22 09:53] LABS: CALCIUM 8.5 mg/dL (8.8-10.2); POTASSIUM 3.5 mmol/L (3.5-5.1)
[2017-03-22] MEDS: NORCO-7.5 PO PRN (13:27)
[2017-03-22] MEDS: ROCEPHIN 1 GM in NS 50 ML IV SCH (13:27)
[2017-03-22] MEDS ORDERED: LANTUS SUBQ SCH (14:25)
[2017-03-22] MEDS: COUMADIN PO SCH (20:04)
[2017-03-22] MEDS: LIPITOR PO SCH (20:04)
[2017-03-22] MEDS: KLONOPIN PO SCH (20:04)
[2017-03-22] MEDS: DILAUDID IV PRN (20:53)
[2017-03-23] MEDS: NORCO-7.5 PO PRN (02:55)
[2017-03-23] MEDS: DUONEB (A & A) INH SCH ×3 (03:36→11:30)
[2017-03-23] MEDS: HUMULIN R SUBQ SCH ×2 (06:06→12:12)
[2017-03-23] MEDS: SYNTHROID PO SCH (06:07)
[2017-03-23] MEDS: PRILOSEC PO SCH (06:07)
[2017-03-23 06:30] LABS: CALCIUM 8.1 mg/dL (8.8-10.2); INR 1.26; POTASSIUM 3.5 mmol/L (3.5-5.1); PROTIME 13.4 Seconds (9.2-11.7)
--- NOTE | 2017-03-23 07:11 | Diag Imaging Result Doc PS360 ---
EXAM: CHEST-1 VIEW HISTORY: SOB TECHNIQUE: AP portable upright at 0545 COMMENT: Compared to the previous study of 03/22/2017 there is slightly worsened volume loss on the left. The loculated pleural fluid collection in the apex remains. There is increased alveolar opacity in the right lower lobe which may represent a pneumonia. IMPRESSION: Worsened atelectasis on the left. Right lower lobe pneumonia. Electronically signed by Cecilio Gomez 03/23/2017 7:09 AM
[2017-03-23 07:56] VITALS: BP 137/64
--- NOTE | 2017-03-23 08:02 | Diag Imaging Result Doc PS360 ---
EXAM: CT THORAX W/O CONTRAST - 03/23/2017 HISTORY: reaccumulation of left chest fluid TECHNIQUE: Without contrast per request of the referring provider. Dose reduction protocol. COMPARISON: 03/14/2017 FINDINGS: There is loculated pleural fluid along the left hemithorax. This is decreased compared to the previous exam. There is been associated decrease in compressive atelectasis at the left lung. There is no right pleural effusion identified. There are some irregular atelectasis at the right base which appears grossly stable. There are some small borderline mediastinal lymph nodes appear stable. There is mild cardiomegaly. IMPRESSION: Loculated pleural fluid on the left which has decreased compared to 03/14/2017. There is associated decreased atelectasis at the left lung. Grossly stable irregular atelectasis at right base. Stable small to borderline mediastinal lymph nodes. Electronically signed by Joaquim Dempsey 03/23/2017 8:00 AM
[2017-03-23] MEDS: TOPROL XL PO SCH (09:17)
[2017-03-23] MEDS: LASIX PO SCH (09:17)
[2017-03-23] MEDS: MIRALAX PO SCH (09:17)
[2017-03-23] MEDS: PERIDEX MT SCH (09:17)
[2017-03-23] MEDS: CARDIZEM CD PO SCH (09:17)
[2017-03-23] MEDS: CORDARONE PO SCH (09:17)
[2017-03-23] MEDS: ROCEPHIN 1 GM in NS 50 ML IV SCH (12:44)
[2017-03-23] MEDS ORDERED: DOXYCYCLINE PO SCH (21:00)
== END 2017-03-23 15:09 ==
LOC: SUPCPDRO → ED 06:26 → EDIPHOLD 10:32 → SUATTDRO 10:32 → 3S 18:02 → 4N 03-10 11:43 → UNDODISIN 03-10 15:24 → 4N 03-21 12:53
PROVIDERS: ADMIT Internal Medicine; ATTEND Surgery